=== PATIENT | male | born 1935 | race Caucasian/White ===

== ENCOUNTER 2016-10-04 10:25 | Emergency (ER) | payer MEDICARE, OTHER ==
[2013-06-16 09:39] VITALS: BMI 33.1
[~2016-10-04 10:25] MED LIST: ASPIRIN325 MG PO; EFFEXOR50 MG PO; FLOMAX0.4 MG PO; KLOR-CON M2020 MEQ PO; MULTI-DAY VITAM1 TAB PO; NORCO 10/325 TA1 TA1 PO; PRILOSEC20 MG PO; VOLTAREN75 MG PO; ZYLOPRIM300 MG PO
[2016-10-04 12:13] LABS: BASOPHILS 0.5 % (0.0-2.0); EOSINOPHILS 3.7 % (0-7); HEMATOCRIT 40.2 % (42.0-54.0); IMMATURE GRANULOCYTES 0.2 % (0-5); LYMPHOCYTES 23.7 % (15-50); MCH 28.3 pg (26.0-34.0); MCHC 32.3 g/dL (31.0-37.0); MCV 87.6 fL (80.0-100.0); MEAN PLATELET VOLUME 10.9 fL (7.4-10.4); MONOCYTES 9.7 % (2-11); NEUTROPHILS 62.2 % (40-80); PLATELET COUNT 170 10x3/uL (130-400); RBC 4.59 10x6/uL (4.20-6.10); RDW 14.1 % (11.5-14.5); WBC 6.2 10x3/uL (4.8-10.8)
[2016-10-04 12:31] LABS: ALBUMIN 3.8 g/dL (3.4-5.0); ANION GAP 10.9 mmol/L (8-16); BILIRUBIN - TOTAL 0.55 mg/dL (0.2-1.3); CALCIUM 9.2 mg/dL (8.5-10.1); CARBON DIOXIDE 29.4 mmol/L (21.0-32.0); CREATININE - SERUM 1.3 mg/dL (0.6-1.3); POTASSIUM - SERUM 4.3 mmol/L (3.5-5.1); PROTEIN - SERUM 7.4 g/dL (6.4-8.2)
[2016-10-04 12:44] LABS: THYROID STIMULATING HORMONE 2.19 uIU/mL (0.36-3.74); TROPONIN-I 0.016 ng/mL (0.000-0.060)
[2016-10-23 07:51] VITALS: BMI 36.6
== END 2016-10-04 15:19 | disposition home or self-care (01) ==
LOC: D.ER 10:25
PROVIDERS: Physician Assistant
DX: I48.91 Unspecified atrial fibrillation (principal); I10 Essential (primary) hypertension; J44.9 Chronic obstructive pulmonary disease, unspecified; K27.9 Peptic ulcer, site unspecified, unspecified as acute or chronic, without hemorrhage or perforation

== ENCOUNTER 2016-10-16 07:11 | Outpatient (CLI) | payer MEDICARE, OTHER ==
[~2016-10-16] VITALS: Ht 168.9 cm; Wt 104.5 kg
--- NOTE | ~2016-10-16 | HEMODYNAMI ---
PATIENT:MADDISON ABDI SR MEDICAL RECORD: [id number] : 39 [address] [id number] ADMISSION DATE: 10/16/16 Generatedon:10/17/20168:47 Patient name: MADDISON ABDI Patient #: [id number] SSN: : [id number] Date of study: 10/17/2016 Page: Of Hemodynamic Procedure Report Patient Data Patient Demographics Procedure consent was obtained First Name: MADDISON Gender: Male Last Name: JIN Suffix: [facility] Initial: F : 1935 Patient #: [id number] Age: 80 year(s) Race: Unknown Additional ID: [id number] Contact details [address]: [address] [place] [address] State: [place] City: [place] Zip code: [address] Past Medical History Allergies: No known allergies Admission Admission Data Admission Date: 10/16/2016 Admission Time: 7:11 Room #: [facility] Lab Results Lab Result Date: 10/16/2016 Lab Result Time: 0:00 Biochemistry Name Units Result Min Max BUN mg/dl 19 --(----)*- 7 18 Creatinine mg/dl 1.1 --(--*-)-- 0.6 1.3 CBC Name Units Result Min Max Hemoglobin g/dl 13.1 -*(----)-- 13.5 17.5 Procedure Procedure Types Cath Procedure PCI Procedure Coronary Stent Initial Miscellaneous Procedures Moderate Sedation up to 30 minutes Procedure Description Procedure Date Procedure Date: 10/17/2016 Procedure Start Time: 8:28 Procedure End Time: 8:44 Procedure Staff Name Function Anand Nino MD Performing Physician Brianna Jacobs RT Scrub Laurita Palmer RT Monitor Hipolito Mota RN Nurse Procedure Data Cath Procedure Fluoroscopy Diagnostic fluoroscopy Total fluoroscopy Time: 0 time: 0 min min Diagnostic fluoroscopy Total fluoroscopy dose: 602 dose: 602 mGy mGy Contrast Material Contrast Material Type Amount (ml) Isovue 370 65 Entry Location Entry Primary Successful Side Size Upsize Upsize Entry Closure Succes sful Closure Location (Fr) 1 (Fr) 2 (Fr) Remarks Device Remarks Femoral Left 6 Fr artery Short Estimated blood loss: 5 ml Procedure Complications No complications Procedure Medications Medication Administration Route Dosage Oxygen NC 2 l/min Lidocaine 2% added to field 20 Heparin Flush Bag added to field 2 bags (1000units/500ml NS) 0.9% NaCl I.V. 100 ml/hr Plavix P.O. 75 mg Versed I.V. 1 mg Fentanyl I.V. 50 mcg Versed I.V. 1 mg Fentanyl I.V. 50 mcg Heparin Bolus I.V. 4000 units Hemodynamics Rest HGB: 13.1 (g/dl) Heart Rate: 69 (bpm) Snapshots Pre Cath Intra NCS Post Cath Vital Signs Time Heart Resp SPO2 NIBP (mmHg) Rhythm Pain Sedation Rate (ipm) (%) Status Level (bpm) 8:17:37 69 19 96 154/84(128) NSR 0 (11) 10(A) , No pain 8:22:09 66 15 94 145/79(118) NSR 0 (11) 10(A) , No pain 8:26:38 66 22 93 153/87(121) NSR 0 (11) 9(A) , No pain 8:31:10 70 16 93 155/73(115) NSR 0 (11) 9(A) , No pain 8:35:42 81 15 94 155/85(133) NSR 0 (11) 9(A) , No pain 8:41:12 73 18 94 149/88(112) NSR 0 (11) 10(A) , No pain 8:45:43 72 29 93 146/84(122) NSR 0 (11) 10(A) , No pain Medications Time Medication Route Dose Verified Delivered Reason Notes Effectiveness by by 8:10:31 Oxygen NC 2 Anand Mcmillan used for l/min Trung Mota theatrical rigger 8:10:40 Lidocaine 2% added 20ml Anand Michel for local to vial Trung Nino MD anesthetic field 8:10:46 Heparin Flush added 2 Anand Michel used for Bag to bags Trung Nino MD procedure (1000units/500ml field NS) 8:10:57 0.9% NaCl I.V. 100 Anand Buffie Per physician ml/hr Trung Mota RN 8:13:51 Plavix P.O. 75 mg Anand Mcmillan for Trung Mota RN antiplatelet therapy 8:21:35 Versed I.V. 1 mg Anand Mcmillan for sedation Trung Mota RN 8:21:42 Fentanyl I.V. 50 Anand Mcmillan for sedation mcg Trung Mota RN 8:27:45 Versed I.V. 1 mg Anand Mcmillan for sedation Trung Mota RN 8:27:48 Fentanyl I.V. 50 Anand Mcmillan for sedation mcg Trung Mota RN 8:30:47 Heparin Bolus I.V. 4000 Anand Mcmillan for verifie d units Trung Mota RN anticoagulation with dr nino Procedure Log Time Note 7:55:25 Diagnostic Cath Status : Elective 7:55:50 Art Brennan RN sent for patient. Start room use. 7:55:52 Time tracking: Regular hours 7:55:57 Plan of Care:Hemodynamics will remain stable., Cardiac rhythm will remain stable., Comfort level will be maintained., Respiratory function will remain adequate., Patient/ family verbilizes understanding of procedure., Procedure tolerated without complication., Recovers from procedure without complications.. 8:10:31 Oxygen 2 l/min NC was administered by Hipolito Mota RN; used for procedure; 8:10:40 Lidocaine 2% 20ml vial added to field was administered by Anand Nino MD; for local anesthetic; 8:10:46 Heparin Flush Bag (1000units/500ml NS) 2 bags added to field was administered by Anand Nino MD; used for procedure; 8:10:57 0.9% NaCl 100 ml/hr I.V. was administered by Hipolito Mota RN; Per physician; 8:13:51 Plavix 75 mg P.O. was administered by Hipolito Mota RN; for antiplatelet therapy; 8:15:57 Vital chart was started 8:18:05 Patient received from Med II to CCL 2 Alert and oriented. Tansferred to table in Supine position. 8:18:06 Warm blankets applied, and patti hugger turned on for patient comfort. 8:18:06 Correct patient and procedure confirmed by team. 8:18:08 Signed procedure consent form obtained from patient. 8:18:09 ECG and BP/O2 sat monitors applied to patient. 8:18:24 Baseline sample Acquired. 8:18:30 Rhythm: sinus rhythm 8:18:31 Full Disclosure recording started 8:18:37 H&P Date Dictated: 10/17/2016 Within 30 days and on chart.. 8:18:39 Pre-procedure instructions explained to patient. 8:18:40 Pre-op teaching completed and patient verbalized understanding. 8:18:41 Family in waiting room. 8:18:42 Patient NPO since Midnight. 8:18:51 Is the patient allergic to Iodine/contrast media? No. 8:18:52 Was the patient premedicated? No 8:18:53 Is patient on blood thinner?Yes 8:18:56 ACC The patient was administered the following blood thiners within the last 24 hours: ACCPlavix 8:19:29 Patient diabetic? No. 8:19:31 Previous problem with sedation/anesthesia? No ? 8:19:34 Snore? Yes 8:19:35 Sleep apnea? Yes 8:19:36 Deviated septum? No 8:19:36 Opens mouth fully? Yes 8:19:37 Sticks out tongue? Yes 8:19:45 Airway obstruction? Yes copd 8:20:01 Dentures? Yes out 8:20:04 Pre procedure: right dorsailis pedis pulse 1+ Palpable, but thready & weak; easily obliterated 8:20:07 Patient pain scale 0/10 ?. 8:20:13 IV patent on arrival in left forearm with 0.9% NaCl at KVO. 8:20:20 Lab results completed and on chart. 8:20:24 Left groin area was prepped with chlora-prep and draped in sterile fashion 8:20:25 Alarms reviewed by R. N. 8:20:25 Sharps counted by scrub and verified by R.N. 8:20:27 Physician arrived 8:20:27 --------ALL STOP TIME OUT------ 8:20:27 Final Timeout: patient, procedure, and site verified with staff and physician. All members of the team are in agreement. 8:20:29 Left groin site verified by team. 8:20:32 Physical assessment completed. ASA score P 2 - A patient with mild systemic disease as per Anand Nino MD. 8:20:35 Sedation plan: IV Moderate Sedation Versed, Fentanyl 8:20:40 Use device set Femoral PCI 8:20:41 Acist Syringe opened to sterile field. 8:20:42 Acist Hand Control opened to sterile field. 8:20:43 Bag Decanter opened to sterile field. 8:20:43 Medline Cath Pack opened to sterile field. 8:20:44 Terumo 6Fr [place] Sheath opened to sterile field. 8:20:44 St Hussein 260cm J .035 wire opened to sterile field. 8:20:45 Merit BasixCompak Inflation Kit opened to sterile field. 8:20:45 Acist Manifold opened to sterile field. 8:20:46 Tegaderm 4 x 4 opened to sterile field. 8:21:35 Versed 1 mg I.V. was administered by Hipolito Mota RN; for sedation; 8:21:42 Fentanyl 50 mcg I.V. was administered by Hipolito Mota RN; for sedation; 8:25:15 Zero performed for pressure channel P1 8:25:25 Zero performed for pressure channel P1 8:25:31 Zero performed for pressure channel P1 8:26:21 Cordis 6FR XBLAD 3.5 guide catheter opened to sterile field. 8:27:45 Versed 1 mg I.V. was administered by Hipolito Mota RN; for sedation; 8:27:48 Fentanyl 50 mcg I.V. was administered by Hipolito Mota RN; for sedation; 8:28:02 Procedure started. 8:28:08 Local anesthetic to left femerol artery with Lidocaine 2% by Anand Nino MD.INITIAL ACCESS ONLY 8:28:16 A 6 Fr Short sheath was inserted into the Left Femoral artery 8:30:47 Heparin Bolus 4000 units I.V. was administered by Hipolito Mota RN; for anticoagulation; verified with dr nino 8:30:49 6 Fr xblad 3.5 guide catheter was inserted over the wire 8:30:52 LCA angiography performed. 8:30:58 whisper wire advanced. 8:30:59 Wire advanced across lesion. 8:31:53 Eason Whisper J 300cm 0.014 guide wire opened to sterile field. 8:33:27 Inflation Number: 1 A Medtronic Resolute 3.0 X 38 stent was prepped and advanced across the Mid LAD. The stent was deployed at 15 IVANIA for 0:10 (min:sec). 8:34:20 Inflation number: 2 The stent balloon was then re-inflated across the Mid LAD to 3 IVANIA for 0:20 (min:sec). 8:34:48 Stent catheter was removed intact over wire. 8:34:48 Wire removed. 8:34:49 Guide catheter removed. 8:35:02 Vascade 6/7 Fr Closure Device opened to sterile field. 8:36:58 Vascade deployment was unsuccessful 8:37:04 Sheath removed intact; hemostasis achieved with to the Left Femoral artery. 8:37:09 Femstop placed over the left femerol artery at 212 mmHg. Hemostasis achieved. 8:44:12 Post Procedure Pulses reassessed and unchanged 8:44:15 Post procedure rhythm: unchanged. 8:44:17 Estimated blood loss: 5 ml 8:44:18 Post procedure instruction explained to patient.Patient verbalizes understanding. 8:44:19 Patient needs reinforcement of post procedure teaching. 8:44:34 Procedure type changed to Cath procedure, PCI procedure, Coronary Stent Initial, Miscellaneous Procedures, Moderate Sedation up to 30 minutes 8:44:35 Procedure and supply charges have been captured, reviewed, submitted and are correct. 8:44:39 Procedure Complication : No complications 8:44:41 Vital chart was stopped 8:44:41 See physician's report for complete and final results. 8:44:44 Report given to [facility]. 8:44:47 Patient transfered to [facility] with Stretcher. 8:44:53 Procedure ended. 8:44:53 Full Disclosure recording stopped 8:45:01 ACC-PCI Only Patient was given prescriptions, or instructed by Anand Nino MD to start/continue the following medications upon discharge: Plavix 8:45:29 Procedure ended.(Physican Out) 8:45:49 Fluoroscopy time 00.00 minutes. 8:45:53 Fluoroscopy dose: 602 mGy 8:45:53 Flurop Dose total: 602 8:46:00 Contrast amount:Isovue 370 65ml. 8:46:02 Sharps counted by scrub and verified by R.N. 8:46:04 Insertion/operative site no bleeding no hematoma. 8:46:11 Post-op/insertion site Left Femoral artery dressed using a 4 x 4 and Tegaderm. 8:46:16 End room use (Document Last) Intervention Summary Intervention Notes Time ActionType Lesion and Equipment Action# Pressure Duration Attributes Used 8:33:27 Place stent Mid LAD Medtronic 1 15 00:10 Resolute 3.0 X 38 stent 8:34:20 Reinflate Mid LAD Medtronic 2 3 00:20 stent Resolute balloon 3.0 X 38 stent Device Usage Item Name Manufacture Quantity Catalog Hospital Part Current Minima l Lot# / Number Charge Number Stock Stock Serial# Code Acist Acist 1 48766 412003 355125 [id number] 20 Syringe Medical Systems Inc Acist Hand Acist 1 29669 128146 122232 142842 5 Control Medical Systems Inc Bag Microtek 1 2002S 672252 91399 078479 5 DecThe Optima [employer] Inc. Medline Cardinal 1 [id number] 497954 81905 296639 5 Cath Pack Health Terumo 6Fr Terumo 1 [id number] 218738 165737 958297 [address] [place] [address] Hussein 1 230342 611581 705284 564909 30 260cm J .035 wire Merit Merit 1 [id number] 140079 005970 716423 15 BasixClassic Drivek Medical Inflation Kit Acist Acist 1 02741 768454 814052 610883 5 Manifold Medical Systems Inc Tegaderm 4 3M 1 1626W 534926 465679 702199 5 x 4 Cordis 6FR Cardinal 1 [id number] 928268 022167 255063 10 XBLAD 3.5 Health guide catheter Eason Eason 1 [id number] 990649 907184 670782 5 Whisper J Vascular 300cm 0.014 guide wire Medtronic Medtronic 1 [id number] 563605 091612 0 [id number] Resolute 3.0 X 38 stent Vascade 6/7 Cardiva 1 [id number] 854916 671261 528753 5 Fr Closure Medical, Device Inc. Signature Audit [place] Stage Time Signature Unsigned Intra-Procedure 10/17/2016 Laurita Palmer 8:47:39 AM RT(R) Signatures Monitor : Laurita Palmer RT Signature : Date : Time : [facility] [address] [place] [address]
--- NOTE | ~2016-10-16 | HEMODYNAMI ---
PATIENT:MADDISON ABDI SR MEDICAL RECORD: [id number] : 39 LOCATION:D.CAT ADMISSION DATE: 10/16/16 Generatedon:10/16/201610:20 Patient name: MADDISON ABDI Patient #: [id number] SSN: : 1935 Date of study: 10/16/2016 Page: Of Hemodynamic Procedure Report Patient Data Patient Demographics Procedure consent was obtained First Name: MADDISON Gender: Male Last Name: JIN Suffix: [facility] Initial: F : 1935 Patient #: [id number] Age: 80 year(s) Race: Unknown Additional ID: [id number] Contact details [address]: [address] [place] [address] State: [place] City: [place] Zip code: [address] Past Medical History Allergies: No known allergies Admission Admission Data Admission Date: 10/16/2016 Admission Time: 7:11 Lab Results Lab Result Date: 10/16/2016 Lab Result Time: 0:00 Biochemistry Name Units Result Min Max BUN mg/dl 19 --(----)*- 7 18 Creatinine mg/dl 1.1 --(--*-)-- 0.6 1.3 CBC Name Units Result Min Max Hemoglobin g/dl 13.1 -*(----)-- 13.5 17.5 Procedure Procedure Types Cath Procedure Diagnostic Procedure [facility] w/Coronaries PCI Procedure Coronary Stent Initial Miscellaneous Procedures Moderate Sedation up to 15 minutes Procedure Description Procedure Date Procedure Date: 10/16/2016 Procedure Start Time: 9:49 Procedure End Time: 10:16 Procedure Staff Name Function Anand Nino MD Performing Physician Olivier Barcenas RT Scrub Johana Medrano RN Nurse Josué Servin RT Monitor Procedure Data Cath Procedure Fluoroscopy Diagnostic fluoroscopy Total fluoroscopy Time: 8.3 time: 8.3 min min Diagnostic fluoroscopy Total fluoroscopy dose: 934 dose: 934 mGy mGy Contrast Material Contrast Material Type Amount (ml) Isovue 300 94 Entry Location Entry Primary Successful Side Size Upsize Upsize Entry Closure Succes sful Closure Location (Fr) 1 (Fr) 2 (Fr) Remarks Device Remarks Femoral Right 5 Fr 7 Fr Exoseal artery Short Diagnostic catheters Device Type Used For End Catheter Placement Cordis 5Fr Pigtail LV Angiography Catheter (MP) Cordis 5Fr JL 4.0 Left Coronary Catheter (MP) Angiography Cordis 5Fr 3DRC Catheter Right Coronary (MP) Angiography Procedure Complications No complications Procedure Medications Medication Administration Route Dosage Oxygen NC 3 l/min Lidocaine 2% added to field 20 Heparin Flush Bag added to field 2 bags (1000units/500ml NS) Versed I.V. 1 mg Fentanyl I.V. 50 mcg Versed I.V. 1 mg Fentanyl I.V. 50 mcg Heparin Bolus I.V. 4000 units Integrilin (Bolus I.V. 9.5 ml 2mg/ml) Plavix P.O. 600 mg Hemodynamics Rest HGB: 13.1 (g/dl) Heart Rate: 66 (bpm) Snapshots Pre Cath Intra NCS Post Cath Vital Signs Time Heart Resp SPO2 etCO2 EF3ryyk NIBP (mmHg) Rhythm Pain Sedatio n Rate (ipm) (%) (mmHg) (mmHg) Status Level (bpm) 9:33:20 64 16 98 0 0 174/97(151) NSR 0 (11) 10(A) , No pain 9:37:46 63 26 96 0 0 176/95(141) NSR 0 (11) 10(A) , No pain 9:42:10 63 16 96 0 0 168/94(145) NSR 0 (11) 10(A) , No pain 9:46:33 62 20 96 0 0 176/103(150) NSR 0 (11) 10(A) , No pain 9:51:01 66 20 96 0 0 179/100(147) NSR 0 (11) 10(A) , No pain 9:55:17 64 18 95 0 0 159/92(132) NSR 0 (11) 9(A) , No pain 9:59:39 64 16 95 0 0 169/97(122) NSR 0 (11) 9(A) , No pain 10:04:01 72 16 95 0 0 174/98(150) NSR 0 (11) 9(A) , No pain 10:08:23 73 16 95 0 0 167/94(128) NSR 0 (11) 9(A) , No pain 10:12:50 72 17 95 0 0 164/92(139) NSR 0 (11) 9(A) , No pain 10:15:52 79 15 95 0 0 160/98(119) NSR 0 (11) 10(A) , No pain Medications Time Medication Route Dose Verified Delivered Reason Notes Effectiveness by by 9:30:54 Oxygen NC 3 Anand Johana Per physician l/min Trung Medrano RN 9:31:42 Lidocaine 2% added 20ml Anand Michel used for to vial Trung Nino MD procedure field 9:32:02 Heparin Flush added 2 Anand Anand used for Bag to bags Trung Nino MD procedure (1000units/500ml field NS) 9:48:22 Versed I.V. 1 mg Anand Johana for sedation Trung Medrano RN 9:48:28 Fentanyl I.V. 50 Anand Johana for sedation mcg Trung Medrano RN 9:51:01 Versed I.V. 1 mg Anand Johana for sedation Trung Medrano RN 9:51:05 Fentanyl I.V. 50 Anand Johana for sedation mcg Trung Medrano RN 10:03:42 Heparin Bolus I.V. 4000 Anand Johana for units Trung Medrano RN anticoagulation 10:07:39 Integrilin I.V. 9.5 Anand Johana for (Bolus 2mg/ml) ml Trung Medrano RN antiplatelet therapy 10:19:08 Plavix P.O. 600 Anand Johana for mg Trung Medrano RN antiplatelet therapy Procedure Log Time Note 9:16:36 ACC Patient presents with Stable Angina CCS Anginal Class 2--Slight limitation of ordinary activity. 9:16:38 Diagnostic Cath status Elective 9:16:41 Josué Servin RT(R) sent for patient. Start room use. 9:16:42 Time tracking: Regular hours 9:16:47 Plan of Care:Hemodynamics will remain stable., Cardiac rhythm will remain stable., Comfort level will be maintained., Respiratory function will remain adequate., Patient/ family verbilizes understanding of procedure., Procedure tolerated without complication., Recovers from procedure without complications.. 9:23:48 Patient received from Pre/Post Procedure Room to CCL 1 Alert and oriented. Tansferred to table in Supine position. 9:23:50 Warm blankets applied, and patti hugger turned on for patient comfort. 9:23:51 Correct patient and procedure confirmed by team. 9:23:53 ECG and BP/O2 sat monitors applied to patient. 9:23:53 Signed procedure consent form obtained from patient. 9:30:54 Oxygen 3 l/min NC was administered by Johana Medrano RN; Per physician; 9:31:42 Lidocaine 2% 20ml vial added to field was administered by Anand Nino MD; used for procedure; 9:32:02 Heparin Flush Bag (1000units/500ml NS) 2 bags added to field was administered by Anand Nino MD; used for procedure; 9:32:02 Vital chart was started 9:32:06 Baseline sample Acquired. 9:32:10 Rhythm: sinus rhythm 9:32:12 Full Disclosure recording started 9:38:03 H&P Date Dictated: 10/09/2016 Within 30 days and on chart., H&P Addendum completed by physician on day of procedure. (MUST COMPLETE FOR ALL OUTPATIENTS). 9:38:05 Pre-procedure instructions explained to patient. 9:38:10 Pre-op teaching completed and patient verbalized understanding. 9:38:12 Family in waiting room. 9:38:15 Patient NPO since Midnight. 9:38:24 Patient allergic to No known allergies 9:38:29 Is the patient allergic to Iodine/contrast media? No. 9:38:55 Is patient on blood thinner?Yes 9:42:27 Patient diabetic? No. 9:42:34 ----Pre-sedation anethsthesia assessment.---- 9:42:36 Previous problem with sedation/anesthesia? No ? 9:42:38 Snore? Yes 9:42:39 Sleep apnea? Yes 9:42:41 Deviated septum? No 9:42:42 Opens mouth fully? Yes 9:42:44 Sticks out tongue? Yes 9:42:50 Airway obstruction? Yes unknown 9:43:00 Dentures? Unknown ? 9:43:03 Pre procedure: right dorsailis pedis pulse 1+ Palpable, but thready & weak; easily obliterated 9:43:07 Modified Wero's test Ulnar > 7 seconds. 9:43:10 Patient pain scale 0/10 ?. 9:43:27 IV patent on arrival in left antecubital with 0.9% NaCl at 10ml/hr. 9:46:35 Lab Result : BUN 19 mg/dl 9:46:35 Lab Result : Creatinine 1.1 mg/dl 9:46:35 Lab Result : Hemoglobin 13.1 g/dl 9:47:03 Lab results completed and on chart. 9:47:07 Right groin area was prepped with chlora-prep and draped in sterile fashion 9:47:07 Alarms reviewed by R. N. 9:47:08 Sharps counted by scrub and verified by R.N. 9:47:09 --------ALL STOP TIME OUT------ 9:47:09 Final Timeout: patient, procedure, and site verified with staff and physician. All members of the team are in agreement. 9:47:11 Right groin site verified by team. 9:47:16 Physical assessment completed. ASA score P 2 - A patient with mild systemic disease as per Anand Nino MD. 9:47:20 Sedation plan: IV Moderate Sedation Versed, Fentanyl 9:47:52 Use device set Femoral Dx 9:47:54 Acist Syringe opened to sterile field. 9:47:55 Bag Decanter opened to sterile field. 9:47:55 Medline Cath Pack opened to sterile field. 9:47:56 Terumo 5Fr Carbon Sheath opened to sterile field. 9:47:56 St Hussein 260cm J .035 wire opened to sterile field. 9:47:58 Acist Hand Control opened to sterile field. 9:47:58 Acist Manifold opened to sterile field. 9:47:59 Diagnostic Infinity 5Fr Multipack catheter opened to sterile field. 9:47:59 Tegaderm 4 x 4 opened to sterile field. 9:48:22 Versed 1 mg I.V. was administered by Johana Medrano RN; for sedation; 9:48:28 Fentanyl 50 mcg I.V. was administered by Johana Medrano RN; for sedation; 9:49:02 ACC The patient was administered the following blood thiners within the last 24 hours: Xarelto 9:49:25 BLOOD THINNER 17 9:49:38 Procedure started. 9:49:52 Local anesthetic to right femoral artery with Lidocaine 2% by Anand Nino MD.INITIAL ACCESS ONLY 9:50:01 A 5 Fr sheath was inserted into the Right Femoral artery 9:51:01 Versed 1 mg I.V. was administered by Johana Medrano RN; for sedation; 9:51:05 Fentanyl 50 mcg I.V. was administered by Johana Medrano RN; for sedation; 9:52:18 Zero performed for pressure channel P1 9:56:15 A Cordis 5Fr Pigtail Catheter (MP) was advanced over the wire and used for LV Angiography. 9:59:08 Catheter removed. 9:59:26 UNABLE TO CROSS LV 9:59:44 A Cordis 5Fr JL 4.0 Catheter (MP) was advanced over the wire and used for Left Coronary Angiography. 10:00:08 LCA angiography performed. 10:01:14 Catheter removed. 10:01:24 A Cordis 5Fr 3DRC Catheter (MP) was advanced over the wire and used for Right Coronary Angiography. 10:01:30 RCA angiography performed. 10:01:31 Catheter removed. 10:01:36 medidametrics BasixCompak Inflation Kit opened to sterile field. 10:01:37 Eason Whisper J 300cm 0.014 guide wire opened to sterile field. 10:03:30 Sheath upsized to a 7 Fr Short. 10:03:42 Heparin Bolus 4000 units I.V. was administered by Johana Medrano RN; for anticoagulation; 10:04:00 Terumo 7Fr Carbon Sheath opened to sterile field. 10:04:16 7 Fr HS 11 SH guide catheter was inserted over the wire 10:04:31 WHISPER wire advanced. 10:05:34 Inflation number: 1 A [place] Sci [place] 2.5 X 20 balloon was prepped and advanced across the Mid RCA, then inflated to 13 IVANIA for 0:07 (min:sec). 10:05:45 Inflation number: 2 The [place] Sci [place] 2.5 X 20 balloon was reinflated across the Mid RCA, to 13 IVANIA for 0:10 (min:sec). 10:06:00 Inflation number: 3 The [place] Sci [place] 2.5 X 20 balloon was reinflated across the Mid RCA, to 13 IVANIA for 0:12 (min:sec). 10:06:13 Balloon removed over the wire. 10:06:20 ACC PCI Site: mRCA has 99% stenosis. 10:07:39 Integrilin (Bolus 2mg/ml) 9.5 ml I.V. was administered by Johana Medrano RN; for antiplatelet therapy; 10:08:14 Inflation Number: 4 A Medtronic Resolute 3.0 X 38 stent was prepped and advanced across the Mid RCA. The stent was deployed at 15 IVANIA for 0:15 (min:sec). 10:08:21 Stent catheter was removed intact over wire. 10:10:01 Inflation Number: 5 A Medtronic Resolute 3.5 X 9 stent was prepped and advanced across the Mid RCA. The stent was deployed at 15 IVANIA for 0:07 (min:sec). 10:10:18 Stent catheter was removed intact over wire. 10:10:19 Wire removed. 10:10:19 Guide catheter removed. 10:10:26 Contrast amount:Isovue 300 94ml. 10:10:33 Sheath removed intact; hemostasis achieved with Exoseal to the Right Femoral artery. 10:11:47 Cordis 7Fr Exoseal opened to sterile field. 10:11:51 Procedure ended.(Physican Out) 10:12:24 Procedure type changed to Cath procedure, Diagnostic procedure, LHC, LHC w/Coronaries, PCI procedure, Coronary Stent Initial, Miscellaneous Procedures, Moderate Sedation up to 15 minutes 10:12:32 Fluoroscopy time 08.30 minutes. 10:12:38 Fluoroscopy dose: 934 mGy 10:12:38 Flurop Dose total: 934 10:12:39 Sharps counted by scrub and verified by R.N. 10:12:40 Insertion/operative site no bleeding no hematoma. 10:12:43 Post-op/insertion site Right Femoral artery dressed using a 4 x 4 and Tegaderm. 10:12:46 Post right femoral artery:stable 10:12:48 Post Procedure Pulses reassessed and unchanged 10:12:51 Post procedure: right dorsailis pedis pulse 1+ Palpable, but thready & weak; easily obliterated. 10:12:54 Post procedure rhythm: sinus rhythm 10:12:57 Post procedure instruction explained to patient.Patient verbalizes understanding. 10:13:11 Procedure and supply charges have been captured, reviewed, submitted and are correct. 10:13:16 Procedure Complication : No complications 10:16:20 Vital chart was stopped 10:16:21 See physician's report for complete and final results. 10:16:22 Report given to Pre/Post Procedure Room. 10:16:26 Patient transfered to Pre/Post Procedure Room with Stretcher. 10:16:29 Procedure ended. 10:16:29 Full Disclosure recording stopped 10:16:31 End room use (Document Last) 10:19:08 Plavix 600 mg P.O. was administered by Johana Medrano RN; for antiplatelet therapy; Intervention Summary Intervention Notes Time ActionType Lesion and Equipment Action# Pressure Duration Attributes Used 10:05:34 Inflate Mid RCA [place] 1 13 00:08 balloon Sci [place] 2.5 X 20 balloon 10:05:45 Reinflate Mid RCA [place] 2 13 00:10 balloon Sci [place] 2.5 X 20 balloon 10:06:00 Reinflate Mid RCA [place] 3 13 00:12 balloon Sci [place] 2.5 X 20 balloon 10:08:14 Place stent Mid RCA Medtronic 4 15 00:15 Resolute 3.0 X 38 stent 10:10:01 Place stent Mid RCA Medtronic 5 15 00:07 Resolute 3.5 X 9 stent Device Usage Item Name Manufacture Quantity Catalog Number Hospital Part Current Mini mal Lot# / Charge Number Stock Stock Serial# Code Acist Acist 1 [id number] 554844 295885 20 Syringe Medical Systems Inc Bag Microtek 1 2002S 146639 92727 745145 5 Funnely Inc. Medline Cardinal 1 [id number] 358137 06627 471159 5 Cath Pack Digital Shadows Terumo 5Fr Terumo 1 [id number] 749880 944785 573379 [address] [facility] Hussein 1 269519 295372 216199 843316 30 260cm J .035 wire Acist Hand Acist 1 97609 249534 109063 996683 5 Control Medical Systems Inc Acist Acist 1 49407 589646 384970 577050 5 SodaStream [employer] Inc Diagnostic Cardinal 1 [id number] 814897 45152 537872 30 TradingScreen 5Fr Multipack catheter Tegaderm 4 3M 1 1626W 891723 625033 362844 5 x 4 Cordis 5Fr Cardinal 1 [id number] 5 Pigtail Health Catheter (MP) Cordis 5Fr Cardinal 1 815517 5 JL 4.0 Health Catheter (MP) Cordis 5Fr Cardinal 1 850467 5 3DRC Health Catheter (MP) [facility] 1 [id number] 767148 517533 578716 15 BasixCompak Medical Inflation Kit Eason Eason 1 [id number] 697783 801273 483168 5 Whisper J Vascular 300cm 0.014 guide wire Terumo 7Fr Terumo 1 [id number] 595443 039276 039096 5 Carbon Sheath [place] Sci [place] 1 [id number] 564821 239173 074591 1 [id number] [employer] 2.5 X 20 balloon Medtronic Medtronic 1 [id number] 964450 191927 0 [id number] Resolute 3.0 X 38 stent Medtronic Medtronic 1 [id number] 413436 367428 6 [id number] Resolute 3.5 X 9 stent Cordis 7Fr Cardinal 1 [id number] 975972 748818 424413 5 [facility] Digital Shadows Signature Audit Lamar Stage Time Signature Unsigned Intra-Procedure 10/16/2016 Josué Servin 10:19:57 AM RT(R) Signatures Monitor : Josué Servin RT Signature : Date : Time : [place] [id number] [facility] [place] [address]
[2016-10-16] MEDS ORDERED: BAYER CHEWABLE81 MG PO (07:43)
[2016-10-16] MEDS ORDERED: TOPROL XL50 MG PO (07:44)
[2016-10-16] MEDS ORDERED: XARELTO20 MG PO (07:45)
[2016-10-16] MEDS ORDERED: POTASSIUM99 M1 PO (07:47)
[2016-10-16] MEDS ORDERED: REQUIP1 MG PO (07:48)
[2016-10-16] MEDS ORDERED: EFFEXOR50 MG PO (07:48)
[2016-10-16] MEDS ORDERED: SINGULAIR10 MG PO (07:50)
[2016-10-16] MEDS ORDERED: ANORO ELLIPTA1 EACH INH (07:50)
[2016-10-16] MEDS ORDERED: SPIRIVA18 MCG INH (07:51)
[2016-10-16] MEDS ORDERED: PROAIR HFA8.5 GM INH (07:52)
[2016-10-16 07:54] VITALS: BP 170/87; Ht 168.9 cm; Wt 104.5 kg
[2016-10-16 08:11] LABS: BASOPHILS 0.5 % (0.0-2.0); EOSINOPHILS 2.5 % (0-7); HEMATOCRIT 39.6 % (42.0-54.0); HEMOGLOBIN 13.1 g/dL (13.5-17.5); IMMATURE GRANULOCYTES 0.2 % (0-5); LYMPHOCYTES 16.4 % (15-50); MCH 28.3 pg (26.0-34.0); MCHC 33.1 g/dL (31.0-37.0); MCV 85.5 fL (80.0-100.0); MEAN PLATELET VOLUME 10.4 fL (7.4-10.4); MONOCYTES 8.4 % (2-11); PLATELET COUNT 171 10x3/uL (130-400); RBC 4.63 10x6/uL (4.20-6.10); RDW 14.3 % (11.5-14.5); WBC 8.1 10x3/uL (4.8-10.8)
[2016-10-16 08:23] LABS: ANION GAP 10.5 mmol/L (8-16); CALCIUM 8.7 mg/dL (8.5-10.1); CARBON DIOXIDE 28.4 mmol/L (21.0-32.0); CREATININE - SERUM 1.1 mg/dL (0.6-1.3); POTASSIUM - SERUM 3.9 mmol/L (3.5-5.1)
--- NOTE | 2016-10-16 10:45 | NUR ---
IN BED WITH EYES CLOSED. VSS. RIGHT GROIN CDI, SMALL HEMATOMA NOTED, SOFT TO TOUCH. FEMSTOP IN PLACE AT 168. INSTRUCTED PT TO KEEP HEAD FLAT ON PILLOW AND RIGHT LEG STRAIGHT.
--- NOTE | 2016-10-16 11:15 | NUR ---
RESTING IN BED, AT BEDSIDE. VSS. 4L NC, NO RESP DISTRESS NOTED. RIGHT GROIN CDI, NO BLEEDING NOTED. FEMSTOP IN PLACE AT 168. WILL CONTINUE TO MONITOR.
--- NOTE | 2016-10-16 11:30 | NUR ---
HEMATOMA ON RIGHT GROIN GETTING LARGER BUT STILL SOFT. FEMSTOP REMOVED AND PRESSURE BEING HELD AT SITE BY CATH RELIEF DOCKING MASTER.
--- NOTE | 2016-10-16 12:00 | NUR ---
RESTING WITH HEAD FLAT ON PILLOW, VSS. RIGHT GROIN CDI, NO BLEEDING NOTED. SIDE RAILS UP X2, CALL LIGHT WITHIN REACH.
--- NOTE | 2016-10-16 12:30 | NUR ---
ASSISTED PT ONTO AND OFF BEDPAN. HAD LARGE BM. CLEANED UP AND LINENS CHANGED. VSS. RIGHT GROIN CDI, FEMSTOP IN PLACE. WILL CONTINUE TO MONITOR.
--- NOTE | 2016-10-16 13:30 | NUR ---
RESTING IN BED WITH EYES CLOSED, VSS. AT BEDSIDE. NO C/O CHEST PAIN OR NAUSEA. RIGHT GROIN CDI. SIDE RAILS UP X2, CALL LIGHT WITHIN REACH.
--- NOTE | 2016-10-16 19:40 | NUR ---
1939- REPORT CALLED TO MARIBELL GOMEZ AT 1830- TRANSFERRING PT NOW VIA STRETCHER. VSS, NO CHANGES IN ASSESSMENT. IV PATENT
--- NOTE | 2016-10-16 20:00 | NUR ---
RECEIVED TO ROOM 2122 ALERT AND ORIENTED 80 Y/O MALE VIA STRETCHER FROM CUSTOMER ACCOUNTS ADVISOR. AMBULATE TO BED W/O DIFF. O2 @ 2L NC IN PLACE, RESP UNLAB. LEFT HAND SL INTACT WITH NO R/S NOTED AT SITE. UP AD ROSSI W/O DIFF. RT GROIN CATH SITE CDI, NO ACTIVE BLEEDING NOTED, PPPBILAT, SKIN WARM AND DRY. NPO STATUS EXPLAINED WITH UNDERSTANDING VERBALIZED ABOUT PROCEDURE IN AM. HOB UP SR UP X2, C/L IN REACH. CONTINUE TO MONITOR.
[2016-10-16 21:40] VITALS: BP 173/77
[2016-10-17 02:00] VITALS: BP 174/81
--- NOTE | 2016-10-17 03:29 | NUR ---
EYES CLOSED, RESP UNLAB WITH NO S/S OF ACUTE DISTRESS NOTED AT THIS TIME. TELEMETRY SHOWING HR SR PER MONITOR. TECH. NPO FOR AM PROCEDURE. C/L IN REACH.
[2016-10-17 07:52] VITALS: BP 146/72; BP 176/90
--- NOTE | 2016-10-17 08:01 | NUR ---
ASSESSMENT COMPLETED. ALERT. TELEMERTY SHOWS SR. DRSG TO RIGHT GROIN DRY AND INTACT. PRE OPED AND SENT TO BUSINESS SUPPORT LIAISON
--- NOTE | 2016-10-17 09:15 | NUR ---
BACK FROM PLASTER MOLDER.. V/S STABLE. LEFT GROIN WITH A FEM STOP IN PLACE, PPP, NO BLEEDING NOTED. WILL MONITOR
[2016-10-17] MEDS ORDERED: PLAVIX75 MG PO (10:00)
--- NOTE | 2016-10-17 10:28 | NUR ---
RESTING QUIETLY NAD NOTED
--- NOTE | 2016-10-17 11:12 | NUR ---
LYING QUIETLY. V/S STABLE TELEMERTY SHOING SR. FEM STOP LOOSE, BUT LEFT IN PLACE. NO BLEEDING , LEFT GROIN SOFT. PPP
[2016-10-17 11:42] VITALS: BP 145/73
[2016-10-17 15:51] VITALS: BP 158/78
--- NOTE | 2016-10-17 17:41 | NUR ---
IV DCD WITH TIP INTACT. NO BLEEDING FROM CATH SITE.. INSTRUCTIONS GIVEN TO PT AND . TO PRIVATE CAR PER WHEEL CHAIR
--- NOTE | 2016-10-24 14:37 | OP ---
PATIENT NAME: MADDISON ABDI SR MEDICAL RECORD: [id number] :39 LOCATION:D.CAT ADMISSION DATE: SURGEON: ELSI BRUCE MD DATE OF OPERATION: 10/17/2016 PROCEDURES: 1. PTCA stent LAD. 2. Selective coronary angiography. INDICATION: Angina and coronary artery disease. PROCEDURE PERFORMED: After informed consent was obtained and after detailed explanation of the risks, benefits as well as alternative therapies, the patient elected to proceed with angiogram and angioplasty. The left femoral area was prepped and draped in normal sterile fashion. The left femoral artery was cannulated via modified Seldinger technique with placement of 6-Turkmen sheath. All catheters exchanged through this sheath. FINDINGS: The left anterior descending has 80+ percent stenosis times 2 in the proximal and mid vessel. This were both cover with a 3.0 x 38 mm Resolute stent. Result was 0% residual stenosis. OVERALL IMPRESSION: Successful percutaneous transluminal coronary angioplasty stent of the left anterior descending going from 80+ percent initial stenosis to 0% residual. TRANSINT:[id number] Voice Confirmation ID: [id number] DOCUMENT ID: [id number] ELSI BRUCE MD at 1437 CC: [id number] DICTATION DATE: 10/17/16 0840 [employer] SOUND[employer] GROUP LEADER: 10/17/16 0952 DEP CLI 10/17/[address] [address]
--- NOTE | 2016-10-24 14:37 | EC ---
PATIENT:MADDISON ABDI SR DATE OF SERVICE: 10/16/16 SEX: M MEDICAL RECORD: [id number] DATE OF : 39 LOCATION:D.CAT AGE OF PATIENT: 80 ADMISSION DATE: 10/16/16 REFERRING PHYSICIAN: INTERPRETING PHYSICIAN: ELSI NINO MD ECHOCARDIOGRAM REPORT ECHO CHARGES 4 ECHO COMPLETE CLINICAL DIAGNOSIS: SOB/ POST CATH /STENTS ECHOCARDIOGRAPHIC MEASUREMENTS (adult normal given) AC root (d.<3.7cm) 3.5 LV Septum d (<1.2 cm> 1.6 Valve Excursion 1.8 LV Septum (systole) 1.8 Left Atria (s.<4.0cm> 4.4 LVPW d(<1.2cm) 1.8 RV (d.<2.3cm) 3.7 LVPW (sytole) 2.0 LV diastole(<5.6CM) 5.4 MV E-F(>70mm/sec) LV systole 4.2 LVOT Diameter 1.6 MV exc.(>10mm) Est.ejection fraction (50-75%) Pericardial Effusion N DOPPLER: LVIT A 47.0 E 98.0 LA RVSP 27 LVOT 93 AOP1/2T Asc. Ao 231 RVOT RA PA AV Gradient Peak 21.36 AV Mean 10.58 AV Area 1.1 MV Gradient Peak 5.36 MV Mean 1.26 MV Area COMMENTS: Systems Engineer: Ludin MCADAMS Cook Apprentice Pastry:1 Dr. Nino TAPE# PACS DATE OF SERVICE: 10/16/2016 Echocardiogram FINDINGS: 1. Left ventricular chamber size is within normal limits. Left ventricular systolic function is normal. Overall ejection fraction estimated at 55%. 2. Left atrium, right atrium, and right ventricle chamber sizes are mildly dilated. Left atrium measures 4.2 cm. 3. Valvular structures: Aortic valve demonstrates mild calcific aortic ECHOCARDIOGRAM REPORT [id number] MADDISON ABDI SR stenosis. Valve area calculates to 1.1 cm-squared and there is gradient of 21 mm across the valve. The remaining valvular structures have normal structure and motion. 4. Doppler interrogation elsewise reveals mild mitral regurgitation, mild tricuspid regurgitation, no other valvular insufficiency or stenosis. 5. No evidence of pericardial effusion or left ventricular thrombus. TRANSINT:[id number] Voice Confirmation ID: [id number] DOCUMENT ID: [id number] ELSI NINO MD at 1437 CC: [id number] DICTATION DATE: 10/16/16 1201 INDUSTRIAL BOILERMAKER: 10/16/16 1530 DEP CLI 10/17/16 [place] [address] [place] [id number]
--- NOTE | 2016-10-24 14:37 | OP ---
PATIENT NAME: MADDISON ABDI SR MEDICAL RECORD: [id number] :37 LOCATION:D.CAT ADMISSION DATE: SURGEON: ELSI BRUCE MD DATE OF OPERATION: 10/16/2016 PROCEDURES: 1. PTCA stent RCA. 2. Left heart catheterization. 3. Selective coronary angiography. INDICATION: Angina and coronary artery disease. PROCEDURE IN DETAIL: After informed consent was obtained and after detailed explanation of risks, benefits as well as alternative therapies, the patient elected to proceed with angiogram and angioplasty. The right femoral area was prepped and draped in normal sterile fashion. Right femoral artery was cannulated via modified Seldinger technique with placement of 6-Macedonian sheath. All catheters exchanged through this sheath. FINDINGS: Left ventriculogram was not performed secondary to inability to cross the aortic valve. SELECTIVE CORONARY ANGIOGRAPHY: 1. Left main showed no significant angiographic disease. 2. Left anterior descending has 80% stenosis proximally. 3. Left circumflex has 80% to 90% stenosis in the proximal mid vessel. 4. The right coronary has multiple areas of 90% stenosis. PTCA STENT OF THE RCA: The stent used covering the multiple areas with 90% stenosis were 3.0 x 38 and 3.5 x 12 both Resolute stents. Result was 0% residual stenosis. OVERALL IMPRESSION: Successful percutaneous transluminal coronary angioplasty stent of the right coronary artery going from 90% initial stenosis to 0% residual. PLAN: PTCA stent of the LAD and the left circumflex in the near future. TRANSINT:[id number] Voice Confirmation ID: [id number] DOCUMENT ID: [id number] ELSI BRUCE MD at 1437 CC: [id number] DICTATION DATE: 10/16/16 1051 UROLOGY TEACHER: 10/16/16 1258 DEP CLI 10/17/16 [facility] [address] [place] [id number]
== END 2016-10-17 17:47 | disposition home or self-care (01) ==
LOC: D.M2 07:11 → D.CATH 07:11 → D.M2 19:42 → D.CATH 10-17 17:47
PROVIDERS: Internal Medicine Interventional Cardiology
DX: I25.119 Atherosclerotic heart disease of native coronary artery with unspecified angina pectoris (principal); I35.0 Nonrheumatic aortic (valve) stenosis; I34.0 Nonrheumatic mitral (valve) insufficiency; I36.1 Nonrheumatic tricuspid (valve) insufficiency
CPT/HCPCS: 93454; C9600 ×2

== ENCOUNTER 2016-10-23 07:23 | Outpatient (CLI) | payer MEDICARE, OTHER ==
[~2016-10-23] VITALS: Ht 168.9 cm; Wt 104.5 kg
--- NOTE | ~2016-10-23 | HEMODYNAMI ---
PATIENT:MADDISON ABDI SR MEDICAL RECORD: [id number] : 39 LOCATION:[facility] ADMISSION DATE: 10/23/16 Generatedon:10/23/201610:11 Patient name: MADDISON ABDI Patient #: [id number] SSN: : 1935 Date of study: 10/23/2016 Page: Of Hemodynamic Procedure Report Patient Data Patient Demographics Procedure consent was obtained First Name: MADDISON Gender: Male Last Name: JIN Suffix: [facility] Initial: F : 1935 Patient #: [id number] Age: 80 year(s) Race: Unknown Additional ID: [id number] Contact details Address: [address] [place] [address] State: [place] City: [place] Zip code: [address] Past Medical History Allergies: No known allergies Admission Admission Data Admission Date: 10/23/2016 Admission Time: 7:23 Admit Source: Other Insurance Payor: Private health insurance, Medicare Height (in.): 66.5 BSA: 2.14 (m2) Height (cm.): 168.91 BMI: 36.64 (kg/m2) Weight (lbs.): 230.47 Weight (kg.): 104.54 Lab Results Lab Result Date: 10/23/2016 Lab Result Time: 8:00 Biochemistry Name Units Result Min Max BUN mg/dl 20 --(----)*- 7 18 Creatinine mg/dl 1.1 --(--*-)-- 0.6 1.3 CBC Name Units Result Min Max Hematocrit % 36.2 *-(----)-- 42 54 Hemoglobin g/dl 11.6 *-(----)-- 13.5 17.5 Procedure Procedure Types Cath Procedure PCI Procedure Coronary Stent Initial Miscellaneous Procedures Moderate Sedation up to 15 minutes Procedure Description Procedure Date Procedure Date: 10/23/2016 Procedure Start Time: 10:00 Procedure End Time: 10:10 Procedure Staff Name Function Anand Nino MD Performing Physician Tracey Mandujano RT Scrub Art Brennan RN Nurse Ángel Carney RT Monitor Procedure Data Cath Procedure Fluoroscopy Diagnostic fluoroscopy Total fluoroscopy Time: 1.7 time: 1.7 min min Diagnostic fluoroscopy Total fluoroscopy dose: 235 dose: 235 mGy mGy Contrast Material Contrast Material Type Amount (ml) Isovue 300 41 Entry Location Entry Primary Successful Side Size Upsize Upsize Entry Closure Succes sful Closure Location (Fr) 1 (Fr) 2 (Fr) Remarks Device Remarks Femoral Right 6 Fr Vascade artery Short Closure System Estimated blood loss: 10 ml Procedure Complications No complications Procedure Medications Medication Administration Route Dosage Oxygen NC 2 l/min Heparin Flush Bag added to field 2 bags (1000units/500ml NS) 0.9% NaCl I.V. 100 ml/hr Fentanyl I.V. 50 mcg Versed I.V. 1 mg Heparin Bolus I.V. 4000 units Lopressor I.V. 5 mg Fentanyl I.V. 25 mcg Versed I.V. 0.5 mg Hemodynamics Rest BSA: 2.14 (m2) HGB: 11.6 (g/dl) O2 Consumption: Estimated: 282.11 (ml/min) O2 Co nsumption indexed: Estimated:131.83 (ml/min/m) Heart Rate: 116 (bpm) Snapshots Pre Cath Intra NCS Post Cath Vital Signs Time Heart Resp SPO2 etCO2 [id number] NIBP (mmHg) Rhythm Pain Sedation Rate (ipm) (%) (mmHg) (mmHg) Status Level (bpm) 9:43:30 95 20 99 0 0 127/84(121) A-Fib 0 (11) 10(A) , No pain 9:47:36 113 20 98 0 0 122/98(116) A-Fib 0 (11) 10(A) , No pain 9:51:41 114 19 98 0 0 120/97(113) A-Fib 0 (11) 10(A) , No pain 9:55:45 108 17 98 0 0 122/97(105) A-Fib 0 (11) 10(A) , No pain 9:59:49 123 18 98 0 0 129/98(122) A-Fib 0 (11) 9(A) , No pain 10:03:48 120 17 98 0 0 116/96(111) A-Fib 0 (11) 9(A) , No pain 10:07:48 107 18 97 0 0 124/92(107) A-Fib 0 (11) 9(A) , No pain Medications Time Medication Route Dose Verified Delivered Reason Notes Effectiveness by by 9:45:20 Oxygen NC 2 Art Art Per physician l/min Mika Brennan RN RN 9:45:33 Heparin Flush added 2 Art Art used for Bag to bags Mika Brennan RN procedure (1000units/500ml field RN NS) 9:45:45 0.9% NaCl I.V. 100 Art Art Per physician ml/hr Mika Brennan RN RN 9:57:15 Fentanyl I.V. 50 Art Art for sedation mcg Mika Brennan RN RN 9:57:25 Versed I.V. 1 mg Art Art for sedation Mika Brennan RN RN 10:00:24 Fentanyl I.V. 25 Art Art for sedation mcg Mika Brennan RN RN 10:00:31 Versed I.V. 0.5 Art Art for sedation mg Mika Brennan RN RN 10:01:29 Heparin Bolus I.V. 4000 Art Art for units Mika Brennan RN anticoagulation RN 10:03:14 Lopressor I.V. 5 mg Art Laly Per physician Mika Brennan RN merchandising stock associate Log Time Note 8:56:49 PCI Cath Status : Elective 8:58:43 Lab Result : Hemoglobin 11.6 g/dl 8:58:43 Lab Result : Creatinine 1.1 mg/dl 8:58:43 Lab Result : BUN 20 mg/dl 8:58:43 Lab Result : Hematocrit 36.2 % 8:59:31 Patient Weight : 230.47 kg 8:59:37 Patient Height : 66.5 cm 8:59:41 Admit Source: Other 8:59:45 Insurance Payor : Private health insurance, Medicare 9:00:03 Diagnostic Cath status Elective 9:00:05 Art Brennan RN sent for patient. Start room use. 9:26:01 Time tracking: Regular hours 9:26:05 Plan of Care:Hemodynamics will remain stable., Cardiac rhythm will remain stable., Comfort level will be maintained., Respiratory function will remain adequate., Patient/ family verbilizes understanding of procedure., Procedure tolerated without complication., Recovers from procedure without complications.. 9:31:52 Patient received from Pre/Post Procedure Room to CCL 1 Alert and oriented. Tansferred to table in Supine position. 9:31:53 Warm blankets applied, and patti hugger turned on for patient comfort. 9:31:53 Correct patient and procedure confirmed by team. 9:31:55 Signed procedure consent form obtained from patient. 9:31:56 ECG and BP/O2 sat monitors applied to patient. 9:32:00 H&P Date Dictated: 10/23/2016 Within 30 days and on chart., H&P Addendum completed by physician on day of procedure. (MUST COMPLETE FOR ALL OUTPATIENTS). 9:42:25 Vital chart was started 9:44:52 Baseline sample Acquired. 9:45:04 Rhythm: atrial fibrillation 9:45:06 Full Disclosure recording started 9:45:10 Pre-procedure instructions explained to patient. 9:45:11 Pre-op teaching completed and patient verbalized understanding. 9:45:12 Family in waiting room. 9:45:13 Patient NPO since Midnight. 9:45:18 Patient allergic to No known allergies 9:45:20 Oxygen 2 l/min NC was administered by Atr Brennan RN; Per physician; 9:45:20 Is the patient allergic to Iodine/contrast media? No. 9:45:21 Is patient on blood thinner?Yes 9:45:33 Heparin Flush Bag (1000units/500ml NS) 2 bags added to field was administered by Art Brennan RN; used for procedure; 9:45:45 0.9% NaCl 100 ml/hr I.V. was administered by Art Brennan RN; Per physician; 9:46:07 ACC The patient was administered the following blood thiners within the last 24 hours: ACCPlavix 9:46:08 Patient diabetic? No. 9:46:10 Previous problem with sedation/anesthesia? No ? 9:46:11 Snore? Yes 9:46:12 Sleep apnea? Yes 9:46:13 Deviated septum? No 9:46:13 Opens mouth fully? Yes 9:46:14 Sticks out tongue? Yes 9:46:18 Airway obstruction? Yes copd 9:46:20 Dentures? Yes out 9:46:24 Pre procedure: right dorsailis pedis pulse 1+ Palpable, but thready & weak; easily obliterated 9:46:27 Patient pain scale 0/10 ?. 9:46:59 Patient pain scale 0/10 ?. 9:47:07 IV patent on arrival in left forearm with 0.9% NaCl at [facility]. 9:47:10 Lab results completed and on chart. 9:47:13 Right groin area was prepped with chlora-prep and draped in sterile fashion 9:47:14 Alarms reviewed by R. N. 9:47:14 Sharps counted by scrub and verified by R.N. 9:47:20 Use device set Femoral PCI 9:47:21 Tegaderm 4 x 4 opened to sterile field. 9:47:22 Acist Manifold opened to sterile field. 9:47:23 Acist Syringe opened to sterile field. 9:47:24 Acist Hand Control opened to sterile field. 9:47:24 Bag Decanter opened to sterile field. 9:47:24 Medline Cath Pack opened to sterile field. 9:47:25 Terumo 6Fr Spencer Sheath opened to sterile field. 9:47:25 St Hussein 260cm J .035 wire opened to sterile field. 9:47:26 Merit BasixCompak Inflation Kit opened to sterile field. 9:47:35 Eason Whisper J 300cm 0.014 guide wire opened to sterile field. 9:54:03 Zero performed for pressure channel P1 9:56:44 Physician arrived 9:56:45 --------ALL STOP TIME OUT------ 9:56:46 Final Timeout: patient, procedure, and site verified with staff and physician. All members of the team are in agreement. 9:56:48 Right groin site verified by team. 9:56:51 Physical assessment completed. ASA score P 2 - A patient with mild systemic disease as per Anand Nino MD. 9:56:54 Sedation plan: IV Moderate Sedation Versed, Fentanyl 9:57:15 Fentanyl 50 mcg I.V. was administered by Art Brennan RN; for sedation; 9:57:25 Versed 1 mg I.V. was administered by Art Brennan RN; for sedation; 10:00:08 Procedure started. 10:00:10 Local anesthetic to right femoral artery with Lidocaine 2% by Anand Nino MD.INITIAL ACCESS ONLY 10:00:24 Fentanyl 25 mcg I.V. was administered by Art Brennan RN; for sedation; 10:00:31 Versed 0.5 mg I.V. was administered by Art Brennan RN; for sedation; 10:00:37 A 6 Fr Short sheath was inserted into the Right Femoral artery 10:01:18 Cordis 6FR XBLAD 4.0 guide catheter opened to sterile field. 10:01:26 6 Fr xblad 4 guide catheter was inserted over the wire 10:01:29 Heparin Bolus 4000 units I.V. was administered by Art Brennan RN; for anticoagulation; 10:02:43 whisper wire advanced. 10:03:14 Lopressor 5 mg I.V. was administered by Art Brennan RN; Per physician; 10:04:34 Wire advanced across lesion. 10:04:38 Inflation Number: 1 A Medtronic Resolute 2.25 X 14 stent was prepped and advanced across the Prox CX. The stent was deployed at 17 IVANIA for 0:10 (min:sec). 10:05:12 Stent catheter was removed intact over wire. 10:05:13 Wire removed. 10:05:13 Guide catheter removed. 10:05:20 Vascade 6/7 Fr Closure Device opened to sterile field. 10:06:29 Sheath removed intact; hemostasis achieved with Vascade Closure System to the Right Femoral artery. 10:06:31 Procedure ended.(Physican Out) 10:06:51 Fluoroscopy time 01.70 minutes. 10:06:56 Flurop Dose total: 235 10:06:56 Fluoroscopy dose: 235 mGy 10:07:04 Contrast amount:Isovue 300 41ml. 10:08:02 Insertion/operative site no bleeding no hematoma. 10:08:04 Post-op/insertion site Right Femoral artery dressed using a 4 x 4 and Tegaderm. 10:08:08 Post right femoral artery:stable, soft, clean and dry 10:08:10 Post Procedure Pulses reassessed and unchanged 10:08:13 Post-procedure physical assessment completed. ASA score P 2 - A patient with mild systemic disease as per Anand Nino MD. 10:08:15 Post procedure rhythm: unchanged. 10:08:19 Estimated blood loss: 10 ml 10:08:20 Post procedure instruction explained to patient.Patient verbalizes understanding. 10:08:21 Patient needs reinforcement of post procedure teaching. 10:08:52 Procedure type changed to Cath procedure, PCI procedure, Coronary Stent Initial, Miscellaneous Procedures, Moderate Sedation up to 15 minutes 10:08:52 Procedure and supply charges have been captured, reviewed, submitted and are correct. 10:09:30 Procedure Complication : No complications 10:10:13 Vital chart was stopped 10:10:13 See physician's report for complete and final results. 10:10:15 Report given to Pre/Post Procedure Room. 10::31 Patient transfered to Pre/Post Procedure Room with Stretcher. 10::34 Procedure ended. 10::34 Full Disclosure recording stopped 10:11:05 ACC-PCI Only Patient was given prescriptions, or instructed by Anand Nino MD to start/continue the following medications upon discharge: Plavix 10:11:07 End room use (Document Last) Intervention Summary Intervention Notes Time ActionType Lesion and Equipment Action# Pressure Duration Attributes Used 10:04:38 Place stent Prox CX Medtronic 1 17 00:10 Resolute 2.25 X 14 stent Device Usage Item Name Manufacture Quantity Catalog Hospital Part Current Minima l Lot# / Number Charge Number Stock Stock Serial# Code Tegaderm 4 1 [id number] 822303 138116 5 x 4 Acist Acist 1 56845 078435 512936 214450 5 Manifold Medical Systems Inc Acist Acist 1 17185 117941 799533 508610 20 Syringe Medical Systems Inc Acist Hand Acist 1 69941 531917 842771 315312 5 Control Medical Systems Inc Bag Microtek 1 2002S 452281 92462 770799 5 Decanter Medical Inc. Medline Cardinal 1 [id number] 040437 93890 770125 5 Cath [employer] Terumo 6Fr Terumo 1 [id number] 342348 593723 040743 [address] Hussein 1 962566 816623 484101 758869 30 260cm J .035 wire Merit Merit 1 [id number] 932794 977172 369569 15 BasixCompak Medical Inflation Kit Eason Eason 1 [id number] 078106 790101 242858 5 Whisper J Vascular 300cm 0.014 guide wire Cordis 6FR Cardinal 1 [id number] 408614 966947 796560 3 XBLAD 4.0 Health guide catheter Medtronic Medtronic 1 [id number] 482885 940784 1 [id number] Resolute 2.25 X 14 stent Vascade 01/03 Cardiva 1 [id number] 396230 394714 182909 5 Fr Closure Medical, Device Inc. Signature Audit [place] Stage Time Signature Unsigned Intra-Procedure 10/23/2016 Ángel Carney 10:11:29 AM RT(R) Signatures Monitor : Ángel Carney RT Signature : Date : Time : [address] [address]
[~2016-10-23 07:23] MED LIST changes: +ANORO ELLIPTA1 EACH INH; +BAYER CHEWABLE81 MG PO; +PLAVIX75 MG PO; +POTASSIUM99 M1 PO; +PROAIR HFA8.5 GM INH; +REQUIP1 MG PO; +SINGULAIR10 MG PO; +SPIRIVA18 MCG INH; +TOPROL XL50 MG PO; +XARELTO20 MG PO
[2016-10-23 07:51] VITALS: BP 120/89; Ht 168.9 cm; Wt 104.5 kg
[2016-10-23 08:15] LABS: ANION GAP 12.2 mmol/L (8-16); CALCIUM 8.8 mg/dL (8.5-10.1); CARBON DIOXIDE 28.8 mmol/L (21.0-32.0); CREATININE - SERUM 1.1 mg/dL (0.6-1.3)
[2016-10-23 08:26] LABS: BASOPHILS 0.3 % (0.0-2.0); EOSINOPHILS 3.7 % (0-7); HEMATOCRIT 36.2 % (42.0-54.0); HEMOGLOBIN 11.6 g/dL (13.5-17.5); IMMATURE GRANULOCYTES 0.2 % (0-5); LYMPHOCYTES 20.7 % (15-50); MCH 28.1 pg (26.0-34.0); MCV 87.7 fL (80.0-100.0); MONOCYTES 10.9 % (2-11); NEUTROPHILS 64.2 % (40-80); PLATELET COUNT 181 10x3/uL (130-400); RBC 4.13 10x6/uL (4.20-6.10); RDW 14.2 % (11.5-14.5); WBC 5.9 10x3/uL (4.8-10.8)
--- NOTE | 2016-10-23 10:40 | NUR ---
RESTING IN BED WITH HEAD FLAT ON PILLOW. VSS. 2L NC, NO RESP DISTRESS NOTED. RIGHT GROIN DRSG CDI, NO BLEEDING OR HEMATOMA NOTED. WILL CONTINUE TO MONITOR.
--- NOTE | 2016-10-23 11:10 | NUR ---
AT BEDSIDE. RESTING QUIETLY IN BED. VSS. 2L NC, NO RESP DISTRESS NOTED. RIGHT GROIN DRSG CDI, NO BLEEDING OR HEMATOMA NOTED. NO C/O CHEST PAIN OR NAUSEA. CALL LIGHT WITHIN REACH.
--- NOTE | 2016-10-23 11:25 | NUR ---
RESTING QUIETLY. VSS. 2L NC, NO RESP DISTRESS NOTED. NO C/O CHEST PAIN OR NAUSEA. RIGHT GROIN CDI, NO BLEEDING OR HEMATOMA NOTED. WILL CONTINUE TO MONITOR.
--- NOTE | 2016-10-23 11:55 | NUR ---
RIGHT GROIN CDI, NO BLEEDING OR HEMATOMA NOTED. VSS. NO C/O CHEST PAIN OR NAUSEA.
--- NOTE | 2016-10-23 12:25 | NUR ---
RESTING IN BED WITH AT BEDSIDE. VSS. 2L NC, NO RESP DISTRESS NOTED. RIGHT GROIN CDI, NO BLEEDING OR HEMATOMA NOTED. NO C/O CHEST PAIN OR NAUSEA. CALL LIGHT WITHIN REACH.
--- NOTE | 2016-10-23 13:10 | NUR ---
SANDWICH TRAY GIVEN. NO C/O N/V AT THIS TIME.
--- NOTE | 2016-10-23 13:37 | NUR ---
LEFT FA PIV D/C'D WITH CATHETER INTACT. BAND AID TO SITE. UP TO BEDSIDE TO GET DRESSED.
--- NOTE | 2016-10-23 13:43 | NUR ---
UP TO RESTROOM TO VOID.
--- NOTE | 2016-10-23 13:51 | NUR ---
DISCHARGE INSTRUCTIONS GIVEN, VERBALIZED UNDERSTANDING.
--- NOTE | 2016-10-23 13:56 | NUR ---
TAKEN OUT VIA WHEELCHAIR BY CATH OBSTETRICS TEACHER. LEFT FACILITY WITH FAMILY MEMBER AND ALL PERSONAL BELONGINGS.
--- NOTE | 2016-10-24 14:38 | OP ---
PATIENT NAME: MADDISON ABDI SR MEDICAL RECORD: [id number] :37 LOCATION:D.CAT ADMISSION DATE: SURGEON: ELSI BRUCE MD DATE OF OPERATION: 10/23/2016 PROCEDURES: 1. PTCA stent left circumflex. 2. Selective coronary angiography. INDICATION: Angina and coronary artery disease. PROCEDURE IN DETAIL: After informed consent was obtained and after detailed explanation of risks, benefits as well as alternative therapies, the patient elected to proceed with angiogram and angioplasty. The right femoral area was prepped and draped in normal sterile fashion. The right femoral artery was cannulated via modified Seldinger technique with placement of 6-Turkish sheath. All catheters exchanged through this sheath. FINDINGS: The left circumflex has 80% stenosis in the proximal vessel. This was addressed with 2-5 x 14 mm Resolute stent taken to 17 atmospheres. Result was 0% residual stenosis. OVERALL IMPRESSION: Successful percutaneous transluminal coronary angioplasty stent of the left circumflex going from 80% initial stenosis to 0% residual. TRANSINT:[id number] Voice Confirmation ID: [id number] DOCUMENT ID: [id number] ELSI BRUCE MD at 1438 CC: [id number] DICTATION DATE: 10/23/16 1008 SURVEYOR: 10/23/16 1132 DEP CLI 10/23/[address] [address]
--- NOTE | 2016-10-24 14:38 | HP ---
PATIENT: MADDISON ABDI MEDICAL RECORD: [id number] ACCOUNT: [id number] LOCATION:[facility] : 39 ADMISSION DATE: 10/23/16 HISTORY AND PHYSICAL EXAMINATION DATE: 10/23/2016 DIAGNOSES: 1. Angina. 2. Coronary artery disease. 3. Recent percutaneous transluminal coronary angioplasty stent of right coronary artery and left anterior descending with concomitant disease of the left circumflex. 4. Hypertension. 5. Hyperlipidemia. HISTORY OF PRESENT ILLNESS: Mr. Abdi presented with unstable angina, found to have 3-vessel coronary artery disease, underwent successful PTCA stent of the RCA and LAD, is now brought for PTCA stent of 80% to 90% stenosis of the left circumflex. PHYSICAL EXAMINATION: GENERAL APPEARANCE: Well-nourished, well-developed, appears stated age. Level of distress, comfortable. PSYCHIATRIC: Mental status, alert, normal affect. Orientation, oriented to time, place and person. EYES: Lids and conjunctiva, noninjected. No discharge, no pallor. ENT: Lips, teeth, gums, normal dentition. Oropharynx, no cyanosis, no pallor. NECK: Carotid arteries, bilateral normal upstroke, no bruits, no thrills. JUGULAR VEINS: No jugular venous pressure or distention. CERVICAL LYMPH NODES: Nontender, nonenlarged. THYROID: Not enlarged. Nontender. No nodules. LUNGS: Respiratory effort, unlabored. CHEST: Normal curvature. No thoracic deformity. No chest wall tenderness. Percussion, resonant. Auscultation, clear. No wheezes, no rales, no rhonchi. CARDIOVASCULAR: Precordial exam, nondisplaced. No heaves or pericardial thrills. Rate and rhythm, regular. Heart sounds, normal S1, normal S2. No S3, no gallop, no rub. Systolic murmur, not heard. Diastolic murmur, not heard. EXTREMITIES: No cyanosis, no edema. Peripheral pulses, full and equal in all extremities, except as noted. No bruits appreciated. ABDOMEN: Soft, nondistended. Normal aorta. No bruit. Nontender. No masses. Liver, nontender, no hepatomegaly. Spleen, nontender, no splenomegaly. MUSCULOSKELETAL: No joint tenderness. No joint swelling. No erythema. NEUROLOGICAL: Normal gait, normal strength, normal tone. SKIN: Warm and dry. REVIEW OF SYSTEMS: The patient reports easy bruising but reports no swollen glands. The patient reports no fever, no night sweats, no significant weight gain, no significant weight loss. No significant exercise tolerance. The patient reports no dry eyes, no irritation, no vision change. Patient reports no difficulty hearing and no ear pain. Patient reports no frequent nose bleeds or nose and sinus problems. Patient reports on arm pain on exertion. No shortness of breath while lying down. No history of heart murmur. Patient reports no cough, no wheezing or coughing up blood. Patient reports no abdominal pain, no vomiting. Normal appetite. No diarrhea and not vomiting HISTORY AND PHYSICAL [id number] MADDISON ABDI SR blood. No nausea and no constipation. Patient reports no incontinence. No difficulty urinating. No hematuria. No increased frequency. Patient reports no muscle aches. No weakness, no arthralgias, no back pain. No swelling of the extremities. Patient reports no abnormal mole, no jaundice, no rashes. Reports no loss of consciousness. No weakness and no numbness. No seizures, dizziness, or headaches. The patient reports no depression, no sleep disturbance, feeling safe in a relationship and no alcohol abuse. Patient reports on fatigue. Reports no runny nose or sinus pressure. No itching, no hives, and no frequent sneezing. OVERALL IMPRESSION: Anginal symptomatology with significant disease of the left circumflex. We will proceed with percutaneous transluminal coronary angioplasty stent the left circumflex. TRANSINT:[id number] Voice Confirmation ID: [id number] DOCUMENT ID: [id number] ELSI BRUCE MD at 1438 CC: [id number] DICTATION DATE: 10/23/1637 MARKETING ANALYTICS SPECIALIST: 10/23/16 0957 DEP CLI 10/23/16 [facility] [address] [place] [address]
== END 2016-10-23 13:56 | disposition home or self-care (01) ==
LOC: D.CATH 07:23
PROVIDERS: Internal Medicine Interventional Cardiology
DX: I25.119 Atherosclerotic heart disease of native coronary artery with unspecified angina pectoris (principal); I10 Essential (primary) hypertension; E78.5 Hyperlipidemia, unspecified; Z95.5 Presence of coronary angioplasty implant and graft

== ENCOUNTER 2017-06-04 09:21 | Emergency (ER) | payer MEDICARE, OTHER ==
[2016-10-23 07:51] VITALS: BMI 36.6
[2017-06-04 10:49] LABS: BASOPHILS 0.4 % (0-2); EOSINOPHILS 2.8 % (0-7); HEMATOCRIT 38.5 % (42.0-54.0); HEMOGLOBIN 13.3 g/dL (13.5-17.5); IMMATURE GRANULOCYTES 0.3 % (0-5); LYMPHOCYTES 15.6 % (15-50); MCHC 34.5 g/dL (31.0-37.0); MCV 86.7 fL (80.0-100.0); MEAN PLATELET VOLUME 10.6 fL (7.4-10.4); MONOCYTES 15.2 % (2-11); NEUTROPHILS 65.7 % (40-80); PLATELET COUNT 197 10x3/uL (130-400); RBC 4.44 10x6/uL (4.20-6.10); RDW 13.6 % (11.5-14.5); WBC 7.3 10x3/uL (4.8-10.8)
[2017-06-04 11:15] LABS: ALBUMIN 3.2 g/dL (3.4-5.0); ALKALINE PHOSPHATASE 106 U/L (46-116); ALT (SGPT) 30 U/L (10-68); BILIRUBIN - TOTAL 0.39 mg/dL (0.2-1.3); CALC OSMOLALITY 284 mosm/kg (275-300); CALCIUM 8.8 mg/dL (8.5-10.1); CHLORIDE - SERUM 105 mmol/L (98-107); GLUCOSE 114 mg/dL (74-106); POTASSIUM - SERUM 3.8 mmol/L (3.5-5.1); PROTEIN - SERUM 6.9 g/dL (6.4-8.2); SODIUM 142 mmol/L (136-145); UREA NITROGEN 15 mg/dL (7-18); eGFR NON AFRICAN AMERICAN 76 mL/min (90-120)
[2017-06-04 11:49] LABS: APPEARANCE CLEAR (CLEAR); BACTERIA FEW /hpf (NONE SEEN); BILIRUBIN NEGATIVE (NEGATIVE); COLOR DK YELLOW (YELLOW); EPITHELIAL CELLS 0-5 /hpf (0-5); GLUCOSE NEGATIVE (NEGATIVE); HYALINE CAST RARE /lpf (NONE SEEN); KETONE NEGATIVE (NEGATIVE); MUCUS >1+ /lpf (NONE SEEN); NITRITE NEGATIVE (NEGATIVE); PROTEIN 1+ mg/dL (NEGATIVE); RED CELLS - URINE 0-5 /hpf (0-5); WHITE CELLS - URINE RARE /hpf (0-5)
== END 2017-06-04 13:10 | disposition home or self-care (01) ==
LOC: D.ER 09:21
PROVIDERS: Emergency Medicine
DX: J20.9 Acute bronchitis, unspecified (principal); J44.9 Chronic obstructive pulmonary disease, unspecified; I10 Essential (primary) hypertension

== ENCOUNTER 2017-10-21 21:44 | Inpatient (IN) | payer MEDICARE, OTHER ==
[~2017-10-21] VITALS: Ht 168.9 cm; Wt 104.3 kg
--- NOTE | ~2017-10-21 | HP ---
PATIENT: MADDISON ABDI SR MEDICAL RECORD: [id number] ACCOUNT: [id number] LOCATION:D.MS [id number] : 37 ADMISSION DATE: 10/22/17 HISTORY AND PHYSICAL EXAMINATION CHIEF COMPLAINT: Nausea, vomiting, and abdominal pain. HISTORY: This 81-year-old white male presented to the Emergency Department complaining of nausea, vomiting, and abdominal pain, especially after he eats. Symptoms have been going on now for the last 2 weeks. He also complains of lower back pain that radiates around to his abdomen at times. In the ER, his lab work was okay except platelets were 125,000 and CK was 2037 (normal 21-232). He is admitted with generalized weakness, abdominal pain, and elevated CPK. PAST MEDICAL HISTORY: He has hypertension, obstructive sleep apnea, constipation, hyperlipidemia, diet-controlled diabetes, osteoarthritis, and depression. He has coronary artery disease with a stent by Dr. Nino. He has restless leg syndrome. PAST SURGICAL HISTORY: He had gastric bypass surgery by Dr. Turner in 1999. He has had left shoulder surgery for torn rotator cuff and spur removal by Dr. Holcomb. He has had nasal surgery times 2. ALLERGIES: None known. SOCIAL HISTORY: He is a retired maintenance shop welder and lives with his . HABITS: Heavy drinker, quit at age 38. Former smoker. No drugs. FAMILY HISTORY: Father at age 60 of alcoholism. Mother of unknown causes, she had hypertension. A brother of alcoholism. HOME MEDICATIONS: Include tamsulosin 0.4 mg once a day, Valium 10 mg take one-half at bedtime as needed for sleep, allopurinol 300 mg once a day, Plavix 75 mg once a day, metoprolol tartrate 50 mg once a day, sotalol 80 mg once a day, ropinirole 1 mg at bedtime, Singulair 10 mg once a day, omeprazole 20 mg once a day, venlafaxine 50 mg twice a day, simvastatin 40 mg at bedtime. REVIEW OF SYSTEMS: GENERAL: No major weight changes. HEENT: No particular sinus or allergy problems. RESPIRATORY: No diagnosis of COPD or emphysema. CARDIAC: He has coronary disease with stents. Dr. Nino is his ship mate. GASTROINTESTINAL: He has had gastric bypass surgery. He has reflux. GENITOURINARY: No significant problems there. MUSCULOSKELETAL: He has arthritic aches and pains, especially in his stumps. NEUROLOGIC: No migraines. No seizures. PSYCHIATRIC: He has some mild depression. PHYSICAL EXAMINATION: VITAL SIGNS: Temperature 98.7, pulse 68, respirations 21, blood pressure 169/78. GENERAL: He is awake and alert. He does not appear to be in acute distress. HEENT: Grossly within normal limits. NECK: Supple. HISTORY AND PHYSICAL [id number] MADDISON ABDI SR HEART: Regular rate and rhythm without murmur. LUNGS: Fairly clear. ABDOMEN: Obese. He has generalized tenderness in the epigastric area. No guarding, no rebound, no mass. EXTREMITIES: No edema. BACK: Some generalized tenderness across the lower back. Straight leg raises are negative. LABORATORY DATA: EKG shows normal sinus rhythm, rate of 67. Urinalysis: Moderate ketones, few bacteria. CBC with a white count of 5600, hemoglobin 13.6, platelets number 125,000. Basic metabolic panel was unremarkable. Liver enzymes were okay except AST little elevated at 87. Lactic acid level is normal at 1.1. Troponin normal at 0.025. ProBNP normal at 572. CK is high at 2037. Albumin is okay at 3.5, lipase 77. Chest x-ray shows some interstitial edema, otherwise normal. ASSESSMENT: 1. Nausea, epigastric pain, especially after eating times 2 weeks. 2. Weakness. 3. Back pain. 4. Elevated CPK. PLAN: Clear liquid diet. He had an MRI ordered from the ER. We will check abdominal ultrasound and probably consult GI. Other tests and procedures as warranted. TRANSINT:[id number] Voice Confirmation ID: [id number] DOCUMENT ID: [id number] GEORGIA LIAO MD at 1356 CC: [id number] DICTATION DATE: 10/23/17 1215 PAINT MIXER MACHINE: 10/23/17 1350 ADM IN [place] [id number] [place] [id number]
[2017-10-21 22:08] LABS: BASOPHILS 0.2 % (0-2); EOSINOPHILS 2.3 % (0-7); HEMATOCRIT 39.8 % (42.0-54.0); HEMOGLOBIN 13.6 g/dL (13.5-17.5); IMMATURE GRANULOCYTES 0.2 % (0-5); MCH 29.8 pg (26.0-34.0); MCHC 34.2 g/dL (31.0-37.0); MCV 87.1 fL (80.0-100.0); MEAN PLATELET VOLUME 10.1 fL (7.4-10.4); MONOCYTES 10.2 % (2-11); NEUTROPHILS 75.1 % (40-80); RBC 4.57 10x6/uL (4.20-6.10); RDW 14.1 % (11.5-14.5); WBC 5.6 10x3/uL (4.8-10.8)
[2017-10-21 22:19] LABS: PLATELET COUNT 125 10x3/uL (130-400)
[2017-10-21 22:26] LABS: ALBUMIN 3.5 g/dL (3.4-5.0); ALKALINE PHOSPHATASE 80 U/L (46-116); ALT (SGPT) 41 U/L (10-68); BILIRUBIN - TOTAL 0.76 mg/dL (0.2-1.3); CALC OSMOLALITY 283 mosm/kg (275-300); CALCIUM 8.5 mg/dL (8.5-10.1); CARBON DIOXIDE 27.5 mmol/L (21.0-32.0); CHLORIDE - SERUM 104 mmol/L (98-107); GLUCOSE 125 mg/dL (74-106); POTASSIUM - SERUM 4.2 mmol/L (3.5-5.1); PROTEIN - SERUM 7.6 g/dL (6.4-8.2); SODIUM 142 mmol/L (136-145); UREA NITROGEN 13 mg/dL (7-18); eGFR NON AFRICAN AMERICAN 76 mL/min (90-120)
[2017-10-21 22:39] LABS: APPEARANCE CLEAR (CLEAR); COLOR YELLOW (YELLOW); SPECIFIC GRAVITY 1.015 (1.005-1.020)
[2017-10-21 22:40] LABS: BACTERIA FEW /hpf (NONE SEEN); BILIRUBIN NEGATIVE (NEGATIVE); EPITHELIAL CELLS 0-5 /hpf (0-5); GLUCOSE NEGATIVE (NEGATIVE); KETONE MODERATE mg/dL (NEGATIVE); NITRITE NEGATIVE (NEGATIVE); PROTEIN NEGATIVE (NEGATIVE); UROBILINOGEN NORMAL (NORMAL); WHITE CELLS - URINE 0-5 /hpf (0-5)
[2017-10-21 22:47] LABS: AMYLASE - SERUM 38 U/L (25-115); LIPASE 77 U/L (73-393); PRO BNP 572 pg/mL (0-450); TROPONIN-I 0.025 ng/mL (0.000-0.060)
[2017-10-21 22:50] LABS: CREATINE KINASE 2037 UL (21-232)
[2017-10-22 00:27] VITALS: BP 147/91; BMI 36.6
[2017-10-22 04:00] VITALS: BP 168/75
[2017-10-22 08:39] VITALS: BP 161/76
[2017-10-22 12:05] VITALS: BP 139/67; BP 143/52
[2017-10-22] MEDS ORDERED: VALIUM5 MG PO (13:47)
[2017-10-22 14:34] VITALS: BMI 36.5
[2017-10-22 16:45] VITALS: BP 133/61
[2017-10-22 20:49] VITALS: BP 140/51
[2017-10-23] VITALS (7 sets, daily range): BP systolic 117–180; BP diastolic 58–82; Ht 168.9 cm; Wt 104.3 kg
[2017-10-23 09:45] LABS: EOSINOPHILS 3.1 % (0-7); HEMATOCRIT 37.7 % (42.0-54.0); HEMOGLOBIN 12.7 g/dL (13.5-17.5); IMMATURE GRANULOCYTES 0.3 % (0-5); LYMPHOCYTES 25.5 % (15-50); MCH 29.1 pg (26.0-34.0); MCHC 33.7 g/dL (31.0-37.0); MCV 86.5 fL (80.0-100.0); MEAN PLATELET VOLUME 9.9 fL (7.4-10.4); MONOCYTES 12.6 % (2-11); NEUTROPHILS 57.5 % (40-80); PLATELET COUNT 109 10x3/uL (130-400); RBC 4.36 10x6/uL (4.20-6.10)
[2017-10-23 09:52] LABS: WBC 3.9 10x3/uL (4.8-10.8)
[2017-10-23 10:23] LABS: ALKALINE PHOSPHATASE 60 U/L (46-116); ALT (SGPT) 31 U/L (10-68); CALCIUM 8.2 mg/dL (8.5-10.1); CARBON DIOXIDE 27.4 mmol/L (21.0-32.0); CHLORIDE - SERUM 108 mmol/L (98-107); GLUCOSE 131 mg/dL (74-106); PROTEIN - SERUM 6.6 g/dL (6.4-8.2); SODIUM 143 mmol/L (136-145); eGFR NON AFRICAN AMERICAN 76 mL/min (90-120)
[2017-10-23 10:24] LABS: CALC OSMOLALITY 285 mosm/kg (275-300); CREATINE KINASE 810 UL (21-232); POTASSIUM - SERUM 3.4 mmol/L (3.5-5.1); UREA NITROGEN 9 mg/dL (7-18)
[2017-10-23 10:25] LABS: CKMB 1.2 U/L (0.0-3.6)
[2017-10-24 05:03] VITALS: BP 146/73
[2017-10-24 06:27] LABS: BASOPHILS 0.5 % (0-2); HEMATOCRIT 36.2 % (42.0-54.0); HEMOGLOBIN 12.1 g/dL (13.5-17.5); LYMPHOCYTES 31.3 % (15-50); MCH 28.7 pg (26.0-34.0); MCHC 33.4 g/dL (31.0-37.0); MCV 85.8 fL (80.0-100.0); MONOCYTES 12.5 % (2-11); NEUTROPHILS 49.7 % (40-80); PLATELET COUNT 124 10x3/uL (130-400); RBC 4.22 10x6/uL (4.20-6.10); RDW 13.9 % (11.5-14.5); WBC 3.7 10x3/uL (4.8-10.8)
[2017-10-24 06:54] LABS: ALKALINE PHOSPHATASE 60 U/L (46-116); ALT (SGPT) 30 U/L (10-68); APTT 31.9 SECONDS (22.8-39.4); BILIRUBIN - TOTAL 0.59 mg/dL (0.2-1.3); CALC OSMOLALITY 284 mosm/kg (275-300); CALCIUM 8.2 mg/dL (8.5-10.1); CARBON DIOXIDE 27.7 mmol/L (21.0-32.0); CHLORIDE - SERUM 107 mmol/L (98-107); GLUCOSE 86 mg/dL (74-106); INR 1.06 (0.85-1.17); POTASSIUM - SERUM 3.3 mmol/L (3.5-5.1); PROTEIN - SERUM 6.6 g/dL (6.4-8.2); PROTIME 13.4 SECONDS (11.6-15.0); SODIUM 144 mmol/L (136-145); UREA NITROGEN 10 mg/dL (7-18); eGFR NON AFRICAN AMERICAN 76 mL/min (90-120)
[2017-10-24 08:02] VITALS: BP 186/66
[2017-10-24 12:00] VITALS: BP 149/76
[2017-10-24] MEDS ORDERED: CARAFATE1 G PO (14:06)
== END 2017-10-24 16:12 | disposition home or self-care (01) | DRG 392 ==
LOC: D.ER 21:44 → D.EDHOLD 23:40 → D.MS 23:40 → OBSVTIME 10-22 00:34 → D.MS 10-22 00:35
PROVIDERS: Family Medicine; Internal Medicine Gastroenterology
PROC: 0DD78ZX Extraction of Stomach, Pylorus, Via Natural or Artificial Opening Endoscopic, Diagnostic (ICD-10-PCS; principal; 2017-10-24 07:30)
DX: K29.70 Gastritis, unspecified, without bleeding (principal); T39.395A Adverse effect of other nonsteroidal anti-inflammatory drugs [NSAID], initial encounter; K44.9 Diaphragmatic hernia without obstruction or gangrene; R53.1 Weakness; R79.89 Other specified abnormal findings of blood chemistry; D64.9 Anemia, unspecified; I10 Essential (primary) hypertension; G47.33 Obstructive sleep apnea (adult) (pediatric); E11.9 Type 2 diabetes mellitus without complications; G25.81 Restless legs syndrome

== ENCOUNTER → 2018-05-10 07:34 | Outpatient (CLI) | payer MEDICARE, OTHER ==
[~2018-05-10] VITALS: Ht 168.9 cm; Wt 102.3 kg
--- NOTE | ~2018-05-10 | HEMODYNAMI ---
PATIENT:MADDISON ABDI SR MEDICAL RECORD: [id number] : 39 LOCATION:D[facility] ADMISSION DATE: 05/10/18 Generatedon:05/10/20189:34 Patient name: MADDISON ABDI Patient #: [id number] SSN: : 1935 Date of study: 05/10/2018 Page: Of Hemodynamic Procedure Report Patient Data Patient Demographics Procedure consent was obtained First Name: MADDISON Gender: Male Last Name: JIN Suffix: [facility] Initial: F : 1935 Patient #: [id number] Age: 82 year(s) Race: Unknown Additional ID: [id number] Contact details Address: [address] [place] [address] State: [place] City: [place] Zip code: [address] Past Medical History Allergies: No known allergies Admission Admission Data Admission Date: 05/10/2018 Admission Time: 7:34 Procedure Procedure Types Cath Procedure Diagnostic Procedure LHC Coronaries only Sedation Charges Moderate Sedation up to 15 minutes PCI Procedure Coronary Stent Coronary Stent Initial Procedure Description Procedure Date Procedure Date: 05/10/2018 Procedure Start Time: 9:09 Procedure End Time: 9:33 Procedure Staff Name Function Anand Nino MD Performing Physician Tracey Mandujano RT Monitor Hipolito Mota RN Nurse Elizabeth Cavanaugh RN Nurse Ángel Carney RT Scrub Procedure Data Cath Procedure Fluoroscopy Diagnostic fluoroscopy Total fluoroscopy Time: 7.2 time: 7.2 min min Diagnostic fluoroscopy Total fluoroscopy dose: dose: 1204 mGy 1204 mGy Contrast Material Contrast Material Type Amount (ml) Isovue 300 109 Entry Location Entry Primary Successful Side Size Upsize Upsize Entry Closure Succes sful Closure Location (Fr) 1 (Fr) 2 (Fr) Remarks Device Remarks Femoral Right 5 Fr 6 Fr Exoseal artery Short Estimated blood loss: 10 ml Diagnostic catheters Device Type Used For End Catheter Placement MULTIPACK Pigtail 5 Fr LV Angiography catheter MULTIPACK JL 4.0 5Fr Left Coronary catheter Angiography MULTIPACK 3DRC 5Fr Right Coronary catheter Angiography Procedure Complications No complications Procedure Medications Medication Administration Route Dosage 0.9% NaCl I.V. 100 ml/hr Oxygen etCO2 Nasal cannula 2 l/min Lidocaine 2% added to field 20 Heparin Flush Bag added to field 2 bags (1000units/500ml NS) Versed I.V. 2 mg Fentanyl I.V. 100 mcg Versed I.V. 1 mg Fentanyl I.V. 25 mcg Heparin Bolus I.V. 4000 units Integrilin (Bolus I.V. 9 ml 2mg/ml) Plavix P.O. 600 mg Hemodynamics Rest Heart Rate: 63 (bpm) Snapshots Pre Cath Intra NCS Post Cath Vital Signs Time Heart Resp SPO2 etCO2 NIBP (mmHg) Rhythm Pain Sedation Rate (ipm) (%) (mmHg) Status Level (bpm) 8:44:07 65 23 96 21 174/85(143) NSR 0 (11) 10(A) , No pain 8:48:44 63 18 99 37.6 178/89(139) NSR 0 (11) 10(A) , No pain 8:53:16 64 14 96 17.2 167/85(135) NSR 0 (11) 10(A) , No pain 8:57:53 65 15 97 44.3 166/84(140) NSR 0 (11) 10(A) , No pain 9:02:17 66 13 95 36.8 151/79(121) NSR 0 (11) 10(A) , No pain 9:06:43 67 13 96 42.8 157/88(127) NSR 0 (11) 10(A) , No pain 9:11:07 68 15 97 45.8 156/84(122) NSR 0 (11) 10(A) , No pain 9:15:38 71 14 96 44.3 148/85(125) NSR 0 (11) 9(A) , No pain 9:20:06 72 16 96 25.5 150/81(127) NSR 0 (11) 9(A) , No pain 9:24:26 74 15 95 12 141/75(116) NSR 0 (11) 9(A) , No pain 9:28:51 75 16 97 45.9 152/85(116) NSR 0 (11) 10(A) , No pain 9:33:17 74 15 97 45.9 147/85(117) NSR 0 (11) 10(A) , No pain Medications Time Medication Route Dose Verified Delivered Reason Notes Effectiveness by by 8:48:40 0.9% NaCl I.V. 100 Anand Elizabeth used for ml/hr Trung Cavanaugh access clerk 8:48:49 Oxygen etCO2 2 Anand Elizabeth used for Nasal l/min Trung Cavanaugh procedure cannula RN 8:48:58 Lidocaine 2% added 20ml Anand Anand for local to vial Trung Nino MD anesthetic field 8:49:05 Heparin Flush added 2 Anand Anand used for Bag to bags Trung Nino MD procedure (1000units/500ml field NS) 9:06:57 Versed I.V. 2 mg Anand Elizabeth for sedation Trung Cavanaugh RN 9:07:06 Fentanyl I.V. 100 Anand Elizabeth for sedation mcg Trung Cavanaugh RN 9:13:02 Versed I.V. 1 mg Anand Elizabeth for sedation Trung Cavanaugh RN 9:13:07 Fentanyl I.V. 25 Anand Elizabeth for sedation mcg Trung Cavanaugh RN 9:18:53 Heparin Bolus I.V. 4000 Anand Elizabeth for verifi ed units Trung Cavanaugh anticoagulation with Dr. MARIBELL Nino 9:21:14 Integrilin I.V. 9 ml Anand Elizabeth for wasted (Bolus 2mg/ml) Trung Cavanaugh anticoagulation 1mL RN 9:28:20 Plavix P.O. 600 Anand Elizabeth for mg Trung Cavanaugh antiplatelet RN therapy Procedure Log Time Note 8:32:01 Time tracking: Regular hours (M-F 7:00 - 5:00) 8:32:05 Plan of Care:Hemodynamics will remain stable., Cardiac rhythm will remain stable., Comfort level will be maintained., Respiratory function will remain adequate., Patient/ family verbilizes understanding of procedure., Procedure tolerated without complication., Recovers from procedure without complications.. 8:32:49 Hipolito Mota RN sent for patient. Start room use. 8:37:01 Patient received from Pre/Post Procedure Room to CCL 1 Alert and oriented. Tansferred to table in Supine position. 8:37:02 Warm blankets applied, and patti hugger turned on for patient comfort. 8:37:02 Correct patient and procedure confirmed by team. 8:37:04 Signed procedure consent form obtained from patient. 8:37:05 ECG and BP/O2 sat monitors applied to patient. 8:42:40 Vital chart was started 8:43:20 H&P Date Dictated: 05/09/2018 Within 30 days and on chart., H&P Addendum completed by physician on day of procedure. (MUST COMPLETE FOR ALL OUTPATIENTS). 8:43:21 Pre-procedure instructions explained to patient. 8:43:21 Pre-op teaching completed and patient verbalized understanding. 8:43:23 Family in patients room. 8:43:27 Patient NPO since Midnight. 8:45:45 Patient allergic to No known allergies 8:45:47 Is the patient allergic to Iodine/contrast media? No. 8:45:54 Is patient on blood thinner?No 8:45:57 Patient diabetic? Yes. 8:46:16 Previous problem with sedation/anesthesia? No ? 8:46:17 Snore? Yes 8:46:19 Sleep apnea? Yes 8:46:20 Deviated septum? No 8:46:21 Opens mouth fully? Yes 8:46:22 Sticks out tongue? Yes 8:46:34 Airway obstruction? No ? 8:47:31 If diabetic: On Metformin? No 8:47:36 Dentures? No ? 8:47:40 Pre procedure: right dorsailis pedis pulse 2+ Normal; easily identifiable; not easily obliterated 8:47:43 Patient pain scale 0/10 ?. 8:47:48 IV patent on arrival in left forearm with 0.9% NaCl at KVO. 8:47:50 Lab results completed and on chart. 8:47:52 Right groin area was prepped with chlora-prep and draped in sterile fashion 8:47:53 Alarms reviewed by R. N. 8:47:54 Sharps counted by scrub and verified by R.N. 8:48:15 Use device set Femoral Dx 8:48:16 ACIST Syringe (86369) opened to sterile field. 8:48:16 Bag Decanter () opened to sterile field. 8:48:17 Medline Cath Pack ([id number]) opened to sterile field. 8:48:17 DIAGNOSTIC WIRE .035 260cm J wire (022880) opened to sterile field. 8:48:19 ACIST Hand Control (03556) opened to sterile field. 8:48:19 ACIST Manifold (64790) opened to sterile field. 8:48:20 DIAGNOSTIC Multipack 5Fr catheter set ([id number]) opened to sterile field. 8:48:21 Tegaderm 4 x 4 (1626W) opened to sterile field. 8:48:22 SHEATH Prelude 5Fr 0.035 (YNC-2M-38-035) opened to sterile field. 8:48:40 0.9% NaCl 100 ml/hr I.V. was administered by Elizabeth Cavanaugh RN; used for procedure; 8:48:49 Oxygen 2 l/min etCO2 Nasal cannula was administered by Elizabeth Cavanaugh RN; used for procedure; 8:48:58 Lidocaine 2% 20ml vial added to field was administered by Anand Nino MD; for local anesthetic; 8:49:05 Heparin Flush Bag (1000units/500ml NS) 2 bags added to field was administered by Anand Nino MD; used for procedure; 8:51:47 Baseline sample Acquired. 8:51:49 Rhythm: sinus rhythm 8:51:50 Full Disclosure recording started 8:55:37 Physician paged 9:00:14 Zero performed for pressure channel P1 9:06:02 Final Timeout: patient, procedure, and site verified with staff and physician. All members of the team are in agreement. 9:06:04 Right groin site verified by team. 9:06:07 Physical assessment completed. ASA score P 2 - A patient with mild systemic disease as per Anand Nino MD. 9:06:10 Sedation plan: IV Moderate Sedation Medication:Versed, Fentanyl 9:06:57 Versed 2 mg I.V. was administered by Elizabeth Cavanaugh RN; for sedation; 9:07:06 Fentanyl 100 mcg I.V. was administered by Elizabeth Cavanaugh RN; for sedation; 9:07:07 Procedure started. 9:09:04 Local anesthetic to right femoral artery with Lidocaine 2% by Anand Nino MD.INITIAL ACCESS ONLY 9:09:54 A 5 Fr sheath was inserted into the Right Femoral artery 9:10:18 A MULTIPACK Pigtail 5 Fr catheter was advanced over the wire and used for LV Angiography. REMOVED UNABLE TO CROSS VALVE 9:13:02 Versed 1 mg I.V. was administered by Elizabeth Cavanaugh RN; for sedation; 9:13:07 Fentanyl 25 mcg I.V. was administered by Elizabeth Cavanaugh RN; for sedation; 9:14:03 A MULTIPACK JL 4.0 5Fr catheter was advanced over the wire and used for Left Coronary Angiography. 9:15:22 Catheter removed. 9:15:36 A MULTIPACK 3DRC 5Fr catheter was advanced over the wire and used for Right Coronary Angiography. 9:16:09 Catheter removed. 9:16:14 Use device set MARTY PCI 9:16:15 SHEATH Prelude 6Fr 0.035 (ZMO-3Q-61-035) opened to sterile field. 9:16:18 INFLATOR Merit BasixCompak (SG4111) opened to sterile field. 9:16:20 CHOICE PT Extra Support 182cm wire ([id number]) opened to sterile field. 9:16:36 Sheath upsized to a 6 Fr Short. 9:17:50 GUIDE 6FR AR 1.0 catheter (IL3EH03) opened to sterile field. 9:18:53 Heparin Bolus 4000 units I.V. was administered by Elizabeth Cavanaugh RN; for anticoagulation; verified with Dr. Nino 9:18:56 6 Fr AR 1.0 guide catheter was inserted over the wire 9:19:09 CHOICEC PT ES wire advanced. 9:21:14 Integrilin (Bolus 2mg/ml) 9 ml I.V. was administered by Elizabeth Cavanaugh RN; for anticoagulation; wasted 1mL 9:21:50 The INTEGRITY RX 3.0 x 15 stent ([id number]) was advanced then removed because of failure to cross lesion 9:21:53 Wire removed. damaged. 9:22:02 Guide Catheter removed. unable to get back-up support 9:22:15 GUIDE 6FR 3DRC catheter ([id number]) opened to sterile field. 9:22:26 6 Fr 3DRC guide catheter was inserted over the wire 9:23:40 2ND CHOICE PT ES wire advanced. 9:25:17 The INTEGRITY RX 3.0 x 15 stent ([id number]) was advanced then removed because of failure to cross lesion 9:25:53 CHOICE PT Extra Support 182cm wire ([id number]) opened to sterile field. 9:26:10 CHOICE PT Extra Support 182cm wire ([id number]) opened to sterile field. 9:26:25 3RD CHOICE PT ES wire advanced. 9:26:52 2ND CHOICE PT ES REMOVED 9:27:09 Place stent Inflation Number: 1 A INTEGRITY RX 3.0 x 15 stent ([id number]) was prepped and advanced across the Mid RCA. The stent was deployed at 13 IVANIA for 0:05 (min:sec). 9::38 Stent catheter was removed intact over wire. 9::38 Guide catheter removed. 9::41 Wire removed. 9:28:20 Plavix 600 mg P.O. was administered by Elizabeth Cavanaugh RN; for antiplatelet therapy; 9::20 Sheath removed intact; hemostasis achieved with Exoseal to the Right Femoral artery. 9:28:21 Procedure ended.(Physican Out) 9::42 Fluoroscopy time 07.20 minutes. 9::46 Flurop Dose total: 1204 9::46 Fluoroscopy dose: 1204 mGy 9:28:50 Contrast amount:Isovue 300 109ml. 9:28:52 Sharps counted by scrub and verified by R.N. 9:28:53 Insertion/operative site no bleeding no hematoma. 9:28:56 Post-op/insertion site Right Femoral artery dressed using a 4 x 4 and Tegaderm. 9:29:00 Post right femoral artery:stable, clean and dry 9:29:01 Post Procedure Pulses reassessed and unchanged 9:29:03 Post-procedure physical assessment completed. ASA score P 2 - A patient with mild systemic disease as per Anand Nino MD. 9:29:05 Post procedure rhythm: unchanged. 9:29:08 Estimated blood loss: 10 ml 9:29:09 Post procedure instruction explained to patient.Patient verbalizes understanding. 9:29:10 Patient needs reinforcement of post procedure teaching. 9:29:36 Procedure type changed to Cath procedure, Diagnostic procedure, LHC, Coronaries only, Sedation Charges, Moderate Sedation up to 15 minutes, PCI procedure, Coronary Stent, Coronary Stent Initial 9::42 Procedure Complication : No complications 9:29:46 See physician's report for complete and final results. 9:29:56 EXOSEAL 6Fr (EX600) opened to sterile field. 9:30:17 Procedure and supply charges have been captured, reviewed, submitted and are correct. 9:33:26 Vital chart was stopped 9:33:28 Report given to Pre/Post Procedure Room. 9:33:32 Patient transfered to Pre/Post Procedure Room with Stretcher. 9:33:35 Procedure ended. 9:33:35 Full Disclosure recording stopped 9:33:44 End room use (Document Last) Intervention Summary Intervention Notes Time ActionType Lesion and Equipment Action# Pressure Duration Attributes Used 9:21:50 Discard INTEGRITY RX Stent 3.0 x 15 stent ([id number]) 9:25:17 Discard INTEGRITY RX Stent 3.0 x 15 stent ([id number]) 9:27:09 Place stent Mid RCA INTEGRITY RX 1 13 00:05 3.0 x 15 stent ([id number]) Device Usage Item Name Manufacture Quantity Catalog Number Hospital Part Current Minimal Lot# / Charge Number Stock Stock Serial# Code ACIST Syringe Acist 1 31938 665484 398139 089962 20 (10145) Medical Systems JobOn Bag Decanter Microtek 1 2001S 138178 04506 978532 5 (2001S) Medical Inc. Medline Cath Cardinal 1 [id number] 119810 61931 211424 5 Pack Health ([id number]) DIAGNOSTIC WIRE St [place] 1 838128 705591 481762 139327 30 .035 260cm J wire (224896) ACIST Hand Acist 1 37862 177590 846262 331812 5 Control (16400) Medical Systems Inc ACIST Manifold Acist 1 08559 650407 942266 895883 5 (45674) Medical Systems Inc DIAGNOSTIC Cardinal 1 GU1726 015146 54412 534970 30 Multipack 5Fr Health catheter set (MA3909) Tegaderm 4 x 4 3M 1 1626W 445875 972087 851897 5 (1626W) SHEATH Prelude Merit 1 WQR-5W-68-035 239999 376455 575777 5 5Fr 0.035 Medical (XUW-7A-68-035) MULTIPACK Cardinal 1 800064 5 Pigtail 5 Fr Health catheter MULTIPACK JL Cardinal 1 174760 5 4.0 5Fr Health catheter MULTIPACK 3DRC Cardinal 1 384833 5 5Fr catheter Health SHEATH Prelude Merit 1 MQH-9D-51-35 990677 0852028 773432 5 6Fr 0.035 Medical (CGH-2C-51-035) INFLATOR Merit Merit 1 XH8253 625516 838379 152263 15 [facility] (IM0439) CHOICE PT Extra [place] 3 [id number] 252151 429885 315686 5 Support 182cm Scientific wire ([id number]) GUIDE 6FR AR Medtronic 1 [id number] 137778 63986 224213 1 1.0 catheter ([id number]) INTEGRITY RX Medtronic 1 [id number] 197204 265083 735158 5 [id number] 3.0 x 15 stent ([id number]) GUIDE 6FR 3DRC Medtronic 1 [id number] 802548 035149 823045 1 catheter ([id number]) EXOSEAL 6Fr Cardinal 1 EX600 714443 349477 125460 10 (EX600) Health Signature Audit [place] Stage Time Signature Unsigned Intra-Procedure 05/10/2018 Tracey 9:34:29 AM Counts RT(R) Signatures Monitor : Tracey Signature : Counts RT Date : Time : [place] [address] [place] [address]
--- NOTE | ~2018-05-10 | OP ---
PATIENT NAME: MADDISON ABDI SR MEDICAL RECORD: [id number] :37 LOCATION:D.CAT ADMISSION DATE: SURGEON: ELSI BRUCE MD DATE OF OPERATION: 05/10/2018 DATE OF SERVICE: 05/10/2018 PROCEDURES: 1. PTCA stent RCA. 2. Left heart catheterization. 3. Selective coronary angiography. 4. Left ventriculogram. INDICATION: Angina and coronary artery disease. PROCEDURE IN DETAIL: After informed consent was obtained and after a detailed description of risks, benefits as well as alternative therapies, the patient elected to proceed with angiogram and angioplasty. The right femoral area was prepped and draped in normal sterile fashion. Right femoral artery was cannulated via modified Seldinger technique with placement of 6-Turkmen sheath. All catheters exchanged through this sheath. FINDINGS: The left ventriculogram was performed in standard 30-degree GRIFFITHS view, reveals good cardiac wall motion throughout all segments. Overall ejection fraction estimated 60%. SELECTIVE CORONARY ANGIOGRAPHY: 1. Left main is with no significant angiographic disease. 2. Left anterior descending has previously placed stents, these are widely patent with no significant restenosis. No disease elsewise throughout the LAD or its branches. 3. The left circumflex has mild irregularities, but no flow-limiting stenosis. 4. The right coronary has previously placed stents, these are widely patent; however, there is a new 80% stenosis in the mid vessel after the previously placed stents proximally. PTCA STENT OF THE RCA: The stent used was a 3.0 x 15 mm Integrity. Result was 0% residual stenosis. OVERALL IMPRESSION: Successful percutaneous transluminal coronary angioplasty stent of the right coronary artery going from 80% initial stenosis to 0% residual. TRANSINT:[id number] Voice Confirmation ID: [id number] DOCUMENT ID: [id number] ELSI BRUCE MD at 0924 CC: [id number] DICTATION DATE: 05/10/18 0932 TIMBER MILL WORKER: 05/10/18 1007 [facility] CLI 05/10/[address] [address]
[~2018-05-10 07:34] MED LIST changes: +BETAPACE 80 MG80 MG PO; +CARAFATE1 G PO; +VALIUM5 MG PO; +ZOCOR40 MG PO
[2018-05-10 08:09] VITALS: BP 167/74; Ht 168.9 cm; Wt 102.3 kg
[2018-05-10 08:16] LABS: BASOPHILS 0.3 % (0-2); EOSINOPHILS 3.4 % (0-7); HEMATOCRIT 39.5 % (42.0-54.0); HEMOGLOBIN 13.3 g/dL (13.5-17.5); IMMATURE GRANULOCYTES 0.1 % (0-5); LYMPHOCYTES 16.1 % (15-50); MCH 29.6 pg (26.0-34.0); MCHC 33.7 g/dL (31.0-37.0); MCV 87.8 fL (80.0-100.0); MEAN PLATELET VOLUME 10.1 fL (7.4-10.4); NEUTROPHILS 69.1 % (40-80); PLATELET COUNT 131 10x3/uL (130-400); RDW 14.1 % (11.5-14.5); WBC 7.3 10x3/uL (4.8-10.8)
[2018-05-10 08:26] LABS: ANION GAP 11.7 mmol/L (8-16); CALCIUM 8.8 mg/dL (8.5-10.1); CARBON DIOXIDE 27.5 mmol/L (21.0-32.0); CREATININE - SERUM 1.1 mg/dL (0.6-1.3); POTASSIUM - SERUM 4.2 mmol/L (3.5-5.1)
== END | disposition home or self-care (01) ==
LOC: D.CATH 07:34
PROVIDERS: Internal Medicine Interventional Cardiology
DX: I25.110 Atherosclerotic heart disease of native coronary artery with unstable angina pectoris (principal)
CPT/HCPCS: 93458; C9600

== ENCOUNTER → 2018-09-27 08:33 | Outpatient (CLI) | payer MEDICARE, OTHER ==
[2018-05-10 08:09] VITALS: BMI 35.8
== END | disposition home or self-care (01) ==
LOC: D.RAD 08:33
PROVIDERS: ATTEND Family Medicine
DX: R10.13 Epigastric pain (principal)

== ENCOUNTER → 2019-02-28 14:23 | Outpatient (CLI) | payer MEDICARE, OTHER ==
[2018-05-10 08:09] VITALS: BMI 35.8
== END | disposition home or self-care (01) ==
LOC: D.US 14:23
PROVIDERS: ATTEND Family Medicine
DX: R22.1 Localized swelling, mass and lump, neck (principal)

== ENCOUNTER → 2019-08-01 08:43 | Outpatient (CLI) | payer MEDICARE, OTHER ==
[2018-05-10 08:09] VITALS: BMI 35.8
--- NOTE | 2019-08-04 11:13 | ST ---
PATIENT:MADDISON ABDI MEDICAL RECORD: [id number] SEX: M LOCATION:[facility] ORDER #: ADMISSION DATE: 08/01/19 AGE OF PATIENT: 83 REFERRING PHYSICIAN: INTERPRETING PHYSICIAN: ELSI BRUCE MD DATE OF SERVICE: 08/01/2019 INDICATION: Angina, coronary artery disease, hypertension, and hyperlipidemia. He was exercised on standard Lexiscan protocol with 33 mCi of sestamibi injected at peak stress, 11 mCi used previously for rest images. FINDINGS: Gated SPECT reveals a decreased ejection fraction of 47%. SPECT imaging Cardiolite was used as myocardial perfusion agent. There is reversibility inferiorly and laterally which includes basal, mid, apical, and inferior segments, the apex itself as well as the lateral segments, apical lateral, mid lateral, and basal lateral segments. The degree of reversibility is moderate. The amount of myocardium involved is moderate to large. OVERALL IMPRESSION: This is an intermediate high risk nuclear stress test, large amount of myocardium at risk with reversible ischemia inferiorly and laterally suggestive of hemodynamically significant coronary artery disease and possibly multivessel disease. TRANSINT:[id number] Voice Confirmation ID: [id number] DOCUMENT ID: [id number] ELSI BRUCE MD at 1113 CC: [id number] DICTATION DATE: 08/01/19 1252 VENEER SLICING MACHINE OPERATOR: 08/01/19 191 [facility]P CLI 08/01/19 [facility] [address] [place] [address]
== END | disposition home or self-care (01) ==
LOC: D.HCCARDIO 08:43
PROVIDERS: ATTEND Internal Medicine Interventional Cardiology
DX: I25.119 Atherosclerotic heart disease of native coronary artery with unspecified angina pectoris (principal)

== ENCOUNTER 2019-08-18 08:19 | Outpatient (CLI) | payer MEDICARE, OTHER ==
[~2019-08-18] VITALS: Ht 167.6 cm; Wt 102.3 kg
--- NOTE | ~2019-08-18 | OP ---
PATIENT NAME: MADDISON ABDI SR MEDICAL RECORD: [id number] :37 LOCATION:D.CAT ADMISSION DATE: SURGEON: ELSI BRUCE MD DATE OF OPERATION: 08/18/2019 PROCEDURES: 1. PTCA stent RCA. 2. PTCA stent ramus intermedius. 3. IFR RCA. 4. IFR ramus intermedius. 5. Left heart catheterization. 6. Selective coronary angiography. INDICATION: Angina and coronary artery disease. DESCRIPTION OF PROCEDURE: After informed consent was obtained and after a detailed explanation of risks, benefits as well as alternative therapies, the patient elected to proceed with angiogram and angioplasty. The right femoral area was prepped and draped in normal sterile fashion. Right femoral artery was cannulated via modified Seldinger technique with placement of 6-Ukrainian sheath. All catheters exchanged through this sheath. FINDINGS: Left ventriculogram was not performed secondary to inability to cross the aortic valve. SELECTIVE CORONARY ANGIOGRAPHY: 1. Left main has no significant angiographic disease. 2. Left anterior descending has previously placed stents that are widely patent with no significant restenosis. No disease elsewise throughout the LAD or its branches. 3. Left circumflex has a ramus intermedius with 75% stenosis and IFR was abnormal. 4. The right coronary has previously placed stents, these are widely patent; however, there is a 75% stenosis distally and IFR was abnormal. PTCA STENT OF THE RCA: The stent used was a 2.5 x 8 mm Integrity. Result was 0% residual stenosis. PTCA STENT OF THE RAMUS INTERMEDIUS: The stent used was a 2.25 x 18 mm Integrity. Result was 0% residual stenosis. OVERALL IMPRESSION: Successful PTCA stent of the RCA and left circumflex, ramus intermedius, both going from 75% initial stenosis with abnormal IFR to 0% residual. TRANSINT:[id number] Voice Confirmation ID: [id number] DOCUMENT ID: [id number] OPERATIVE REPORT [id number] MADDISON ABDI ELSI HERCULES MD CC: [id number] DICTATION DATE: 08/18/19 1058 LEAD MILITARY ANALYST: 08/18/19 1614 DEP CLI 08/18/19 [place] [address]
--- NOTE | ~2019-08-18 | HEMODYNAMI ---
PATIENT:MADDISON ABDI SR MEDICAL RECORD: [id number] : 37 LOCATION:DSTEVE ADMISSION DATE: 08/18/19 Generatedon:08/18/201911:00 Patient name: MADDISON ABDI Patient #: [id number] SSN: [id number] : 1935 Date of study: 08/18/2019 Page: Of Hemodynamic Procedure Report Patient Data Patient Demographics Procedure consent was obtained First Name: MADDISON Gender: Male Last Name: JIN Suffix: [facility] Initial: F : 1935 Patient #: [id number] Age: 83 year(s) Race: SSN: [id number] Additional ID: [id number] Contact details Address: [facility] [address] State: [place] City: [place] Zip code: [address] Past Medical History Performed procedures and imaging results Date Procedure Procedure Results Comments 08/01/2019 Stress testing Positive->Intermediate with SPECT MPI risk Allergies: No known allergies Admission Admission Data Admission Date: 08/18/2019 Admission Time: 8:19 Procedure Procedure Types Cath Procedure Diagnostic Procedure LHC LH w/Coronaries FFR/IVUS FFR Initial FFR Additional Sedation Charges Moderate Sedation up to 15 minutes PCI Procedure Coronary Stent Coronary Stent Initial Coronary Stent Initial x2 Hemochron ACT Test Procedure Description Procedure Date Procedure Date: 08/18/2019 Procedure Start Time: 10:30 Procedure End Time: 10:55 Procedure Staff Name Function Anand Nino MD Performing Physician Hillary Marmolejo RT Monitor Kyle Billings RN Nurse Laurita Palmer RT Scrub Indication Angina Pulmonary hypertension Dyspnea Procedure Data Cath Procedure Fluoroscopy Diagnostic fluoroscopy Total fluoroscopy Time: 7.4 time: 7.4 min min Diagnostic fluoroscopy Total fluoroscopy dose: dose: 1344 mGy 1344 mGy Contrast Material Contrast Material Type Amount (ml) Isovue 370 98 Entry Location Entry Primary Successful Side Size Upsize Upsize Entry Closure Succes sful Closure Location (Fr) 1 (Fr) 2 (Fr) Remarks Device Remarks Femoral Right 5 Fr 6 Fr Exoseal artery Short Estimated blood loss: 10 ml Diagnostic catheters Device Type Used For End Catheter Placement MULTIPACK Pigtail 5 Fr Procedure catheter MULTIPACK JL 4.0 5Fr Procedure catheter MULTIPACK 3DRC 5Fr Procedure catheter Procedure Complications No complications Procedure Medications Medication Administration Route Dosage 0.9% NaCl I.V. 100 ml/hr Oxygen etCO2 Nasal cannula 2 l/min Heparin Flush Bag added to field 2 bags (1000units/500ml NS) Lidocaine 2% added to field 20 Versed I.V. 1 mg Fentanyl I.V. 50 mcg Versed I.V. 1 mg Lopressor I.V. 10 mg Heparin Bolus I.V. 4000 units Integrilin (Bolus I.V. 9 ml 2mg/ml) Integrilin (Bolus wasted 1 ml 2mg/ml) Plavix P.O. 600 mg Hemodynamics Rest Heart Rate: 126 (bpm) Snapshots Pre Cath Intra NCS Post Cath Vital Signs Time Heart Resp SPO2 etCO2 NIBP (mmHg) Rhythm Pain Sedation Rate (ipm) (%) (mmHg) Status Level (bpm) 10:18:05 125 19 96 34.4 124/92(111) A-Fib 0 (11) 10(A) , No pain 10:22:09 125 17 98 0 119/95(105) A-Fib 0 (11) 10(A) , No pain 10:26:12 123 15 98 0 116/91(102) A-Fib 0 (11) 10(A) , No pain 10:30:16 123 10 97 35.2 118/88(112) A-Fib 0 (11) 10(A) , No pain 10:34:20 110 13 96 37.4 118/87(101) A-Fib 0 (11) 9(A) , No pain 10:38:21 119 14 94 36.7 131/101(112) A-Fib 0 (11) 9(A) , No pain 10:42:31 117 13 88 0 106/84(96) A-Fib 0 (11) 9(A) , No pain 10:46:29 117 13 96 35.1 124/97(110) A-Fib 0 (11) 9(A) , No pain 10:50:37 120 14 96 33.6 104/76(89) A-Fib 0 (11) 9(A) , No pain 10:54:34 122 12 96 28.2 118/92(107) A-Fib 0 (11) 9(A) , No pain Medications Time Medication Route Dose Verified Delivered Reason Notes Effectiveness by by 10:18:39 0.9% NaCl I.V. 100 Kyle Kyle Per physician ml/hr Manuelito Billings RN RN 10:18:48 Oxygen etCO2 2 Kyle Kyle for low 02 sats Nasal l/min Manuelito Billings cannula RN RN 10:18:58 Heparin Flush added 2 Kyle Kyle used for Bag to bags Manuelito Billings procedure (1000units/500ml field RN RN NS) 10:19:09 Lidocaine 2% added 20ml Kyle Kyle for local to vial Manuelito Billings anesthetic field RN RN 10:29:41 Versed I.V. 1 mg Kyle Kyle for sedation Manuelito Billings RN RN 10:29:49 Fentanyl I.V. 50 Kyle Kyle for sedation mcg Manuelito Billings RN RN 10:31:25 Versed I.V. 1 mg Kyle Kyle for sedation Manuelito Billings RN RN 10:33:51 Lopressor I.V. 10 mg Kyle Kyle for arrhythmia Manuelito Billings RN RN 10:46:01 Heparin Bolus I.V. 4000 Kyle Kyle for units Manuelito Billings anticoagulation RN RN 10:46:16 Integrilin I.V. 9 ml Kyle Kyle for (Bolus 2mg/ml) Manuelito Billings antiplatelet RN RN therapy 10:46:26 Integrilin wasted 1 ml Kyle Kyle to sharp's (Bolus 2mg/ml) Manuelito Billings RN RN 10:54:17 Plavix P.O. 600 Kyle Kyle for mg Manuelito Billings antiplatelet RN RN therapy Procedure Log Time Note 10:02:46 Indication : Angina 10:02:52 Indication : Pulmonary hypertension 10:02:59 Indication : Dyspnea 10:03:03 Diagnostic Cath Status : Elective 10:03:10 Procedure Status Elective Heart Cath (OP). 10:03:14 Time tracking: Regular hours (M-F 7:00 - 5:00) 10:03:18 Plan of Care:Hemodynamics will remain stable., Cardiac rhythm will remain stable., Comfort level will be maintained., Respiratory function will remain adequate., Patient/ family verbilizes understanding of procedure., Procedure tolerated without complication., Recovers from procedure without complications.. 10:03:26 ACC Patient presents with Stable Angina CCS Anginal Class 2--Slight limitation of ordinary activity. 10:03:59 Stress Test: yes; abnormal inferior and lateral 10:04:02 Alarms reviewed by R. N. 10:04:03 Sharps counted by scrub and verified by R.N. 10:04:21 Informed consent obtained and on chart 10:04:47 Laurita Palmer RT(R) sent for patient. Start room use. 10:07:54 Patient received from Pre/Post Procedure Room to CCL 2 Alert and oriented. Tansferred to table in Supine position. 10:07:55 Warm blankets applied, and patti hugger turned on for patient comfort. 10:07:56 Correct patient and procedure confirmed by team. 10:07:56 ECG and BP/O2 sat monitors applied to patient. 10:08:11 Pre-procedure instructions explained to patient. 10:08:12 Pre-op teaching completed and patient verbalized understanding. 10:08:13 Family in waiting room. 10:08:15 Patient NPO since Midnight. 10:08:26 Patient allergic to No known allergies 10:08:38 Is the patient allergic to Iodine/contrast media? No. 10:08:39 Was the patient premedicated? Yes 10:15:37 Is patient on blood thinner?No 10:15:39 Patient diabetic? No. 10:15:41 If diabetic: On Metformin? N/A 10:15:45 ----Pre-sedation anethsthesia assessment.---- 10:15:49 Previous problem with sedation/anesthesia? No ? 10:15:50 Snore? Yes 10:15:52 Sleep apnea? Yes 10:15:53 Deviated septum? No 10:15:54 Opens mouth fully? Yes 10:15:56 Sticks out tongue? Yes 10:15:58 Airway obstruction? No ? 10:16:00 Dentures? No ? 10:16:05 Pre procedure: right dorsailis pedis pulse Doppler 10:16:11 Patient pain scale 0/10 ?. 10:16:16 IV patent on arrival in left hand with 0.9% NaCl at [facility]. 10:16:24 Right groin area was prepped with chlora-prep and draped in sterile fashion 10:16:28 Use device set Femoral Dx 10:16:30 ACIST Syringe (36751) opened to sterile field. 10:16:31 Bag Decanter (2002S) opened to sterile field. 10:16:31 Medline Cath Pack ([id number]) opened to sterile field. 10:16:32 ACIST Hand Control (66559) opened to sterile field. 10:16:33 ACIST Manifold (77100) opened to sterile field. 10:16:36 DIAGNOSTIC Multipack 5Fr catheter set ([id number]) opened to sterile field. 10:16:39 SHEATH 5FR Henley (SXZ737) opened to sterile field. 10:16:40 EMERALD Guide Wire (077-973) opened to sterile field. 10:17:08 Vital chart was started 10:17:09 Full Disclosure recording started 10:17:23 Lab results completed and on chart. 10:17:37 Rhythm: sinus tachycardia 10:17:47 Baseline sample Acquired. 10:18:39 0.9% NaCl 100 ml/hr I.V. was administered by Kyle Billings RN; Per physician; Verbal order read back and verified. 10:18:48 Oxygen 2 l/min etCO2 Nasal cannula was administered by Kyle Billings RN; for low 02 sats; Verbal order read back and verified. 10:18:58 Heparin Flush Bag (1000units/500ml NS) 2 bags added to field was administered by Kyle Billings RN; used for procedure; Verbal order read back and verified. 10:19:09 Lidocaine 2% 20ml vial added to field was administered by Kyle Billings RN; for local anesthetic; Verbal order read back and verified. 10:28:25 --------ALL STOP TIME OUT------ 10:28:25 Final Timeout: patient, procedure, and site verified with staff and physician. All members of the team are in agreement. 10:28:27 Right groin site verified by team. 10:28:33 Fire Safety Assessment: A--An alcohol-based skin anteseptic being used preoperatively., C--Open oxygen or nitrous oxide is being used., D--An ESU, laser, or fiber-optic light is being used. 10:28:36 Physical assessment completed. ASA score P 2 - A patient with mild systemic disease as per Anand Nino MD. 10::41 Sedation plan: IV Moderate Sedation Medication:Versed, Fentanyl 10::44 Procedure started. 10::41 Versed 1 mg I.V. was administered by Kyle Billings RN; for sedation; Verbal order read back and verified. 10:29:49 Fentanyl 50 mcg I.V. was administered by Kyle Billings RN; for sedation; Verbal order read back and verified. 10:30:07 Local anesthetic to right femoral artery with Lidocaine 2% by Anand Nino MD.INITIAL ACCESS ONLY 10:30:17 A MULTIPACK Pigtail 5 Fr catheter was advanced over the wire and used for Procedure. 10:31:12 2) 60-89 Mildly reduced kidney function, and other findings (as for stage 1) point to kidney disease. 10:31:14 Maximum allowable contrast dose (3.7 X eGFR X 0.75)189 ml. 10:31:20 A 5 Fr sheath was inserted into the Right Femoral artery 10:31:25 Versed 1 mg I.V. was administered by Kyle Billings RN; for sedation; Verbal order read back and verified. 10:31:26 Injector settings: Ml/sec: 5, Volume: 15, 10:31:28 LV gram done using GRIFFITHS 10:33:05 UNABLE TO CANNULATE FOR LV. 10:33:13 Catheter removed. 10:33:22 Risk of Mortality: 0.3 10:33:24 Risk of blood transfusion: 0.1 10:33:27 Risk of AIMEE: 1.4 10:33:35 A MULTIPACK JL 4.0 5Fr catheter was advanced over the wire and used for Procedure. 10:33:51 Lopressor 10 mg I.V. was administered by Kyle Billings RN; for arrhythmia; Verbal order read back and verified. 10:33:53 LCA angiography performed. 10:34:27 Catheter removed. 10:34:34 A MULTIPACK 3DRC 5Fr catheter was advanced over the wire and used for Procedure. 10:35:10 RCA angiography performed. 10:35:21 Catheter removed. 10:35:22 Proceeding to intervention. 10:35:28 Use device set [facility] PCI 10:35:32 INFLATOR Merit BasixCompak (IF7712) opened to sterile field. 10:35:41 SHEATH 6FR Henley (ICO235) opened to sterile field. 10:36:02 [place] Verrata Plus pressure wire (43347P) opened to sterile field. 10:36:29 Sheath upsized to a 6 Fr Short. 10:38:32 GUIDE 6FR HS II catheter (LA6HSI) opened to sterile field. 10:38:49 6 Fr HS 2 guide catheter was inserted over the wire 10:38:55 FFR/IFR wire advanced. 10:38:56 Wire advanced across lesion. 10:42:11 mCirc lesion measured at .83 with IFR 10:44:40 Place stent Inflation Number: 1 A INTEGRITY RX 2.25 x 18 stent ([id number]) was prepped and advanced across the Ramus . The stent was deployed at 13 IVANIA for 0:00 (min:sec) . 10:45:01 Pre PCI Site: [place] Ramus has 75% stenosis. 10:45:10 Stent catheter was removed intact over wire. 10:45:11 Guide catheter removed. 10:45:12 Wire removed. 10:45:33 GUIDE 6FR XBLAD 3.5 catheter ([id number]) opened to sterile field. 10:45:41 6 Fr XBLAD 3.5 guide catheter was inserted over the wire 10:46:01 Heparin Bolus 4000 units I.V. was administered by Kyle Billings RN; for anticoagulation; Verbal order read back and verified. 10:46:16 Integrilin (Bolus 2mg/ml) 9 ml I.V. was administered by Kyle Billings RN; for antiplatelet therapy; Verbal order read back and verified. 10:46:26 Integrilin (Bolus 2mg/ml) 1 ml wasted was administered by Kyle Billings RN; to sharp's; Verbal order read back and verified. 10:46:29 FFR/IFR wire advanced. 10:46:30 Wire advanced across lesion. 10:47:39 dRCA lesion measured at .87 with IFR 10:48:48 Inflation number: 1 The stent balloon was then re-inflated across the Dist RCA to 17 IVANIA for 0:00 (min:sec) . 10:49:07 Stent catheter was removed intact over wire. 10:50:22 Place stent Inflation Number: 2 A INTEGRITY RX 2.5 x 08 stent ([id number]) was prepped and advanced across the Dist RCA . The stent was deployed at 11 IVANIA for 0:00 (min:sec) . 10:51:27 EXOSEAL 6Fr (EX600) opened to sterile field. 10:51:48 Sheath removed intact; hemostasis achieved with Exoseal to the Right Femoral artery. 10:51:50 Procedure ended.(Physican Out) 10:52:42 Fluoroscopy time 07.40 minutes. 10::45 Fluoroscopy dose: 1344 mGy 10:52:45 Flurop Dose total: 1344 10:52:50 Dose Area Product 92522 mGy/cm. 10:52:53 Contrast amount:Isovue 370 98ml. 10:52:55 Maximum allowable dose exceeded? No. 10:52:56 Sharps counted by scrub and verified by R.N. 10:53:00 Post-op/insertion site Right Femoral artery dressed using a 4 x 4 and Tegaderm. 10:53:05 Post right femoral artery:stable, soft, clean and dry 10:53:07 Post Procedure Pulses reassessed and unchanged 10:53:12 Post procedure: right dorsailis pedis pulse Doppler. 10:53:14 Post-procedure physical assessment completed. ASA score P 2 - A patient with mild systemic disease as per Anand Nino MD. 10:53:17 Post procedure rhythm: unchanged. 10:53:20 Estimated blood loss: 10 ml 10:53:21 Post procedure instruction explained to patient.Patient verbalizes understanding. 10:53:23 Patient needs reinforcement of post procedure teaching. 10:53:48 Procedure type changed to Cath procedure, Diagnostic procedure, [facility], [facility] w/Coronaries, FFR/IVUS, FFR Initial, FFR Additional, Sedation Charges, Moderate Sedation up to 15 minutes, PCI procedure, Coronary Stent, Coronary Stent Initial, Coronary Stent Initial x2, Hemochron ACT Test 10:53:58 ACT drawn and resulted at 324 seconds. (normal therapeutic range 180-240 seconds). 10:54:17 Plavix 600 mg P.O. was administered by Kyle Billings RN; for antiplatelet therapy; Verbal order read back and verified. 10:54:21 Procedure Complication : No complications 10:54:26 [facility] Findings: MVD- PCI performed (see procedure note) 10:54:28 Operative report dictated upon procedure completion. 10:54:29 See physician's report for complete and final results. 10:54:31 Report given to Pre/Post Procedure Room. 10:55:18 Vital chart was stopped 10:55:21 Procedure and supply charges have been captured, reviewed, submitted and are correct. 10:55:32 Patient transfered to Pre/Post Procedure Room with Stretcher. 10:55:36 Procedure ended. 10:55:36 Full Disclosure recording stopped 10:58:36 ACC-PCI Only Patient was given prescriptions, or instructed by Anand Nino MD to start/continue the following medications upon discharge: Plavix 10:59:07 End room use (Document Last) 11:00:00 End room use (Document Last) Intervention Summary Intervention Notes Time ActionType Lesion and Equipment Action# Pressure Duration Attributes Used 10:44:40 Place stent Ramus INTEGRITY RX 1 13 00:00 2.25 x 18 stent ([id number]) 10:48:48 Reinflate Dist RCA INTEGRITY RX 1 17 00:00 stent 2.25 x 18 balloon stent ([id number]) 10:50:22 Place stent Dist RCA INTEGRITY RX 2 11 00:00 2.5 x 08 stent ([id number]) Device Usage Item Name Manufacture Quantity Catalog Hospital Part Current Mini mal Lot# / Number Charge Number Stock Stock Serial# Code ACIST Acist 1 89699 842112 584836 798454 20 Syringe Medical (24405) Systems Inc Bag Decanter Microtek 1 2001S 470055 31168 990296 5 (2001S) Medical Inc. Medline Cath Medline 1 [id number] 797272 70316 859673 5 Pack ([id number]) ACIST Hand Acist 1 77395 681028 285417 257270 5 Control Medical (86178) Systems Inc ACIST Acist 1 43149 940181 028507 291696 5 Manifold Medical (45026) Systems Inc DIAGNOSTIC Cardinal 1 YS5553 800386 76286 399940 30 Multipack Health 5Fr catheter set (JN9624) SHEATH 5FR Terumo 1 UDA196 327705 393595 473323 5 Henley (IKL296) EMERALD Cardinal 1 502-455 457930 872744 301229 5 Guide Wire Health (502-436) MULTIPACK Cardinal 1 497122 5 Pigtail 5 Fr Health catheter MULTIPACK JL Cardinal 1 321285 5 4.0 5Fr Health catheter MULTIPACK Cardinal 1 443525 5 3DRC 5Fr Health catheter INFLATOR Merit 1 VQ7577 242555 293901 212288 15 [facility] Medical BasixCompak (WK1338) SHEATH 6FR Terumo 1 WLN460 228312 388400 998711 40 Henley (QDY850) [place] 1 67867T 507154 104673432 710197 5 Verrata Plus pressure wire (15227S) GUIDE 6FR HS Medtronic 1 LA6HSI 104467 22323 630448 1 I catheter (LA6HSI) INTEGRITY RX Medtronic 1 [id number] 635239 218160 418689 5 [id number] 2.25 x 18 stent ([id number]) GUIDE 6FR Cardinal 1 [id number] 442271 835899 869641 10 XBLAD 3.5 Health catheter (51854245) INTEGRITY RX Medtronic 1 [id number] 063905 812455 216901 5 [id number] 2.5 x 08 stent ([id number]) EXOSEAL 6Fr Cardinal 1 EX600 081753 985028 983707 10 (EX600) Health Signature Audit Chambers Stage Time Signature Unsigned Intra-Procedure 08/18/2019 Hillary Marmolejo 11:00:00 AM RT(R) Intra-Procedure 08/18/2019 Kyle 11:00:25 AM Manuelito REYNA Intra-Procedure 08/18/2019 Anand Nino 11:00:39 AM Signatures Performing Physician : Signature : Anand Nino MD Date : Time : Monitor : Hillary Marmolejo Signature : RT Date : Time : Nurse : Kyle Billings Signature : RN Date : Time : [address] [place] [address]
--- NOTE | ~2019-08-18 | EC ---
PATIENT:MADDISON ABDI SR DATE OF SERVICE: 08/18/19 SEX: M MEDICAL RECORD: [id number] DATE OF : 39 LOCATION:D.CAT AGE OF PATIENT: 83 ADMISSION DATE: 08/18/19 REFERRING PHYSICIAN: INTERPRETING PHYSICIAN: ELSI NINO MD ECHOCARDIOGRAM REPORT ECHO CHARGES 4 ECHO COMPLETE Date: 08/18/19 CLINICAL DIAGNOSIS: ECHOCARDIOGRAPHIC MEASUREMENTS (adult normal given) AC root (d.<3.7cm) 2.7 cm LV Septum d (<1.2 cm> 1.6 cm Valve Excursion 1.0 cm LV Septum (systole) 1.9 cm Left Atria (s.<4.0cm> 5.0 cm LVPW d(<1.2cm) 1.1 cm RV (d.<2.3cm) 3.5 cm LVPW (sytole) 1.5 cm LV diastole(<5.6CM) 5.5 cm MV E-F(>70mm/sec) cm LV systole 4.9 cm LVOT Diameter 1.9 cm MV exc.(>10mm) cm Est.ejection fraction (50-75%) % DOPPLER: LVIT cm/sec A 132 cm/sec E cm/sec LA cm/sec RVSP 24.1 mmHg LVOT 58 cm/sec AOP1/2T m/s Asc. Ao 199 cm/sec RVOT 70 cm/sec RA cm/sec PA 89 cm/sec AV Gradient Peak 15.9 mmHg AV Mean 9.7 mmHg AV Area 0.8 cm MV Gradient Peak 7.4 mmHg MV Mean 3.2 mmHg MV Area cm COMMENTS: City Superintendent: Td MOSER Patient Intake Representative: 1 Dr. Nino TAPE# PACS Pericardial Effusion N DATE OF SERVICE: 08/18/2019 Echocardiogram FINDINGS: 1. Left ventricular chamber size is within normal limits. Left ventricular systolic function is mildly depressed at 40%. 2. Left atrium is enlarged at 5.0 cm. Right atrium and right ventricular chamber sizes are as well mildly dilated. 3. Valvular structures: Aortic valve demonstrates [id number] calcific ECHOCARDIOGRAM REPORT [id number] MADDISON ABDI SR aortic stenosis, valve area calculates to 0.8 cm-squared with a gradient of 16 mm across the valve. The remaining valvular structures have normal structure and motion. 4. Doppler interrogation elsewise reveals only trace mitral regurgitation, no other valvular insufficiency or stenosis. Pulmonary artery systolic pressure is normal estimated at 24 mmHg. 5. No evidence of pericardial effusion or left ventricular thrombus. TRANSINT:[id number] Voice Confirmation ID: [id number] DOCUMENT ID: [id number] ELSI NINO MD CC: [id number] DICTATION DATE: 08/18/19 1648 RADIO MECHANIC HELPER: 08/18/193 DEP CLI 08/18/19 [place] [id number] [place] [id number]
[2019-08-18] MEDS ORDERED: CARAFATE1 G PO (08:54)
[2019-08-18] MEDS ORDERED: VALIUM5 MG PO (08:55)
[2019-08-18] MEDS ORDERED: KLOR-CON M2020 MEQ PO (08:55)
[2019-08-18] MEDS ORDERED: MULTI-DAY VITAM1 TAB PO (08:56)
[2019-08-18 09:25] VITALS: BP 135/97; Ht 167.6 cm; Wt 102.3 kg
[2019-08-18 09:42] LABS: HEMATOCRIT 43.8 % (42.0-54.0); HEMOGLOBIN 14.7 g/dL (13.5-17.5); MCHC 33.6 g/dL (31.0-37.0); MCV 89.4 fL (80.0-100.0); MEAN PLATELET VOLUME 10.4 fL (7.4-10.4); PLATELET COUNT 178 10x3/uL (130-400); RDW 14.3 % (11.5-14.5); WBC 6.7 10x3/uL (4.8-10.8)
[2019-08-18 10:29] LABS: ANION GAP 11.5 mmol/L (8-16); CALCIUM 8.7 mg/dL (8.5-10.1); CARBON DIOXIDE 27.5 mmol/L (21.0-32.0); CREATININE - SERUM 1.1 mg/dL (0.6-1.3); LDL-HDL RATIO 1.6 ratio (1.5-3.5)
--- NOTE | 2019-08-18 11:15 | NUR ---
REC'D TO ROOM 9 FROM BIOCHEMISTRY SPECIALIST VIA STRETCHER. PT DROWSY. MONITORS ESTAB. CM - ST 122. RR 15, POX 97% UNLAB. R GROIN SITE C/D/I, SOFT, NO S/S OF HEMATOMA. PEDAL PULSES EASILY PALP. PT INSTRUCTED ON KEEPING LEG STRAIGHT AND POC.
[2019-08-18] MEDS ORDERED: PLAVIX75 MG PO (11:16)
--- NOTE | 2019-08-18 11:31 | NUR ---
RIDING COACH AT BS FOR ECHO PER MD ORDER.
[2019-08-18 11:36] LABS: ANISOCYTOSIS OCC; EOSINOPHILS 2 % (0-7); LYMPHOCYTES 24 % (15-50); MONOCYTES 10 % (2-11); NEUTROPHILS 63 % (40-80); PLATELET ESTIMATE NORMAL
--- NOTE | 2019-08-18 11:45 | NUR ---
ECHO IN PROCESS. PT AWAKENS EASILY, R GROIN SITE C/D/I. PEDAL PULSE EASILY PALP.
--- NOTE | 2019-08-18 11:50 | NUR ---
DR. BRUCE IN TO SEE PT, HR 122, B/P - 142/105. D/C DISCUSSED, NEW ORDER FOR ONE TIME MEDS REC'D.
--- NOTE | 2019-08-18 12:14 | NUR ---
PO MEDS GIVEN PER MD ORDER. NO DIFFICULYT SWALLOWING. AT BS. UPDATE GIVEN AND QUESTIONS ANSWERED. R GROIN SITE C/D/I.
--- NOTE | 2019-08-18 12:31 | NUR ---
PT RESTING QUIETLY NO SIGN OF DISTRESS. R GROIN SITE C/D/I, SOFT, NO SIGN OF HEMATOMA OR BLEEDING. B/P 127/96, HR 123. C/L IN REACH.
--- NOTE | 2019-08-18 13:00 | NUR ---
R GROIN SITE C/D/I. PEDAL PULSE PALP. VSS. C/L IN REACH.
--- NOTE | 2019-08-18 13:31 | NUR ---
R GROIN SITE SOFT, DSG C/D/I. PULSE PALP. PT TAKING SIPS OF WATER AND SPRITE, NO N/V. CM - AFLUTTER RATE 124. B/P 134/101. PT DENIES NEEDS. C/L IN REACH.
--- NOTE | 2019-08-18 14:00 | NUR ---
DR. BRUCE NOTIFIED OF HR STILL REG AT 123. B/P 112/86. NO NEW ORDERS. FOLLOW-UP APPT SCHEDULED WITH OFFICE FOR THIS SUNDAY.
--- NOTE | 2019-08-18 14:30 | NUR ---
R GROIN SITE SOFT, NO S/S OF HEMATOMA. HOB UP AND SANDWICH TRAY PROVIDED. C/L IN REACH.
--- NOTE | 2019-08-18 15:08 | NUR ---
AT BS. PIV D/C'D INTACT, DSG APPLIED. ALL D/C INSTRUCTIONS AND TEACHING COMPLETE. NEW PRESCRIPTION AND UPDATED MED LIST WITH PT. PT VOIDED 200ML CLEAR, YELLOW URINE. PT ASSISTING WITH GETTING DRESSED.
== END 2019-08-18 15:15 | disposition home or self-care (01) ==
LOC: D.CATH 08:19
PROVIDERS: ATTEND Internal Medicine Interventional Cardiology
DX: I25.119 Atherosclerotic heart disease of native coronary artery with unspecified angina pectoris (principal); R07.9 Chest pain, unspecified; E78.5 Hyperlipidemia, unspecified; I10 Essential (primary) hypertension; R06.02 Shortness of breath; R06.09 Other forms of dyspnea; I48.0 Paroxysmal atrial fibrillation

== ENCOUNTER → 2019-08-25 09:37 | Outpatient (CLI) | payer MEDICARE, OTHER ==
[2019-08-18 09:25] VITALS: BMI 36.4
--- NOTE | 2019-08-26 11:25 | EC ---
PATIENT:MADDISON ABDI SR DATE OF SERVICE: 08/25/19 SEX: M MEDICAL RECORD: [id number] DATE OF : 39 LOCATION:[facility] AGE OF PATIENT: 83 ADMISSION DATE: 08/25/19 REFERRING PHYSICIAN: INTERPRETING PHYSICIAN: ELSI NINO MD ECHOCARDIOGRAM REPORT ECHO CHARGES 4 ECHO COMPLETE Date: 08/25/19 CLINICAL DIAGNOSIS: ATRIAL FIB ECHOCARDIOGRAPHIC MEASUREMENTS (adult normal given) AC root (d.<3.7cm) 2.9 cm LV Septum d (<1.2 cm> 1.3 cm Valve Excursion 1.6 cm LV Septum (systole) 1.6 cm Left Atria (s.<4.0cm> 3.9 cm LVPW d(<1.2cm) 1.5 cm RV (d.<2.3cm) 4.4 cm LVPW (sytole) 2.0 cm LV diastole(<5.6CM) 4.6 cm MV E-F(>70mm/sec) cm LV systole 3.0 cm LVOT Diameter 1.8 cm MV exc.(>10mm) 1.2 cm Est.ejection fraction (50-75%) % DOPPLER: LVIT cm/sec A cm/sec E 125.0 cm/sec LA cm/sec RVSP 17 mmHg LVOT 57 cm/sec AOP1/2T m/s Asc. Ao 69 cm/sec RVOT 61 cm/sec RA cm/sec PA 89 cm/sec AV Gradient Peak 1.89 mmHg AV Mean 0.85 mmHg AV Area 02.5 cm MV Gradient Peak 9.54 mmHg MV Mean 4.04 mmHg MV Area cm COMMENTS: Skin Care Consultant: Ludin MCADAMS Roller Man: 1 Dr. Nino TAPE# PACS Pericardial Effusion N DATE OF SERVICE: FINDINGS: 1. Left ventricular chamber size is within normal limits. Left ventricular systolic function is normal. Overall ejection fraction estimated at 55%. 2. Left atrium is within normal limits at 3.9 cm. Right atrium and right ventricular chamber sizes are moderate to severely dilated. 3. Valvular structures have normal structure and motion. 4. Doppler interrogation reveals no significant valvular insufficiency or stenosis. ECHOCARDIOGRAM REPORT [id number] MADDISON ABDI SR 5. No evidence of pericardial effusion or left ventricular thrombus. 6. The patient is in atrial fibrillation during the study. TRANSINT:[id number] Voice Confirmation ID: [id number] DOCUMENT ID: [id number] ELSI NINO MD at 1125 CC: [id number] DICTATION DATE: 08/25/191709 MEDIA DEVELOPER: 08/26/19 0139 DEP CLI 08/25/19 [place] [id number] [place] [id number]
== END | disposition home or self-care (01) ==
LOC: D.HCCECHO 09:37
PROVIDERS: ATTEND Internal Medicine Interventional Cardiology
DX: I48.0 Paroxysmal atrial fibrillation (principal)

== ENCOUNTER 2019-10-07 11:41 | Observation (INO) | payer MEDICARE, OTHER ==
[~2019-10-07] VITALS: Ht 167.6 cm; Wt 103.6 kg
--- NOTE | ~2019-10-07 | OP ---
PATIENT NAME: MADDISON ABDI SR MEDICAL RECORD: [id number] :37 LOCATION:D.M2 D.2117 ADMISSION DATE:10/07/19 SURGEON: RUDI TALLEY MD DATE OF OPERATION: 10/07/2019 PREOPERATIVE DIAGNOSES: 1. Sick sinus syndrome with pauses. 2. Coronary artery disease. 3. Atrial fibrillation. POSTOPERATIVE DIAGNOSES: 1. Sick sinus syndrome with pauses. 2. Coronary artery disease. 3. Atrial fibrillation. PROCEDURE: 1. Left subclavian vein dual lead pacemaker placement. 2. Fluoroscopic interpretation. SURGEON: Rudi Talley MD CO-SURGEON: Trevon Carroll MD REPORT OF PROCEDURE: The patient's left chest was prepped and draped in sterile fashion. A 20 mL of 1% lidocaine with epinephrine was infused into the surrounding tissues. A transverse incision was made on the left superior lateral chest and a subcutaneous pouch was made over the pectoral fascia. [place] were used to cannulate the left subclavian vein times 2 and guidewires were advanced with ease. Fluoro was used to note that the wires were in good position in the venous system. Dilator trocar devices were placed over the wires and the wires and dilators were removed. The leads were advanced through the trocars and they rested in good position in the superior vena cava. At this point, Dr. Carroll positioned the leads appropriately in atrium and ventricle. Once the leads were noted to be in good position and functioning appropriately, then they were sutured into place with 2-0 TiCron. The leads were affixed to the pacemaker, which was placed into the subcutaneous pouch and sutured to the pectoral fascia with a single interrupted 2-0 TiCron. We irrigated out the wound bed with antibiotic solution. The subcutaneous tissues were reapproximated with interrupted 3-0 Vicryl and the skin was closed with running subcutaneous 5-0 Monocryl. COMPLICATIONS: None. CONDITION: Stable. ANESTHESIA: Local MAC. BLOOD LOSS: Minimal. TRANSINT:[id number] Voice Confirmation ID: [id number] DOCUMENT ID: [id number] OPERATIVE REPORT [id number] MADDISON ABDI SR RUDI TALLEY MD CC: [id number] DICTATION DATE: 10/07/19 144 [employer] DRILL OPERATOR: 10/07/192128 ADM IN [place] [address] [place] [address]
--- NOTE | ~2019-10-07 | HEMODYNAMI ---
PATIENT:MADDISON ABDI SR MEDICAL RECORD: [id number] : 37 LOCATION:DAdolphCAT ADMISSION DATE: 10/07/19 Generatedon:10/07/201914:42 Patient name: MADDISON ABDI Patient #: [id number] SSN: [id number] : 1935 Date of study: 10/07/2019 Page: Of Hemodynamic Procedure Report Patient Data Patient Demographics Procedure consent was obtained First Name: MADDISON Gender: Male Last Name: JIN Suffix: [facility] Initial: Toño : 1935 Patient #: [id number] Age: 83 year(s) Race: SSN: [id number] Additional ID: [id number] Contact details Address: [address] State: [place] City: [place] Zip code: [address] Past Medical History Allergies: No known allergies Admission Admission Data Admission Date: 10/07/2019 Admission Time: 11:41 Arrival Date: 10/07/2019 Arrival Time: 13:30 Admit Source: Other Insurance Payor: Medicare [facility] #: [id number] Height (in.): 65.75 BSA: 2.11 (m2) Height (cm.): 167 BMI: 36.93 (kg/m2) Weight (lbs.): 227.08 Weight (kg.): 103 Lab Results Lab Result Date: 10/07/2019 Lab Result Time: 0:00 Biochemistry Name Units Result Min Max BUN mg/dl 22 --(----)-* 7 18 Creatinine mg/dl 1.4 --(----)*- 0.6 1.3 CBC Name Units Result Min Max Hemoglobin g/dl 13.4 -*(----)-- 13.5 17.5 Procedure Procedure Types Cath Procedure Diagnostic Procedure PPM/ICD PPM Dual Implant Sedation Charges Moderate Sedation up to 30 minutes Procedure Description Procedure Date Procedure Date: 10/07/2019 Procedure Start Time: 14:15 Procedure End Time: 14:39 Procedure Staff Name Function Trevon Gutierrez MD Performing Physician Vasyl Gallo MD Assisting physician Laurita Palmer RT Monitor Hillary Marmolejo RT Scrub Elizabeth Cavanaugh RN Nurse Procedure Data Cath Procedure Fluoroscopy Diagnostic fluoroscopy Total fluoroscopy Time: 1.4 time: 1.4 min min Diagnostic fluoroscopy Total fluoroscopy dose: dose: 82.95 mGy 82.95 mGy Contrast Material Contrast Material Type Amount (ml) Isovue 300 0 Estimated blood loss: 5 ml Procedure Complications No complications Procedure Medications Medication Administration Route Dosage 0.9% NaCl I.V. 100 ml/hr Oxygen etCO2 Nasal cannula 2 l/min Lidocaine 1% added to field 20 Ancef Irrigation Topical 1 g (1gm/500ml NS) Ancef (1Gm/50ml NS) I.V.P.B 1 g Versed I.V. 2 mg Fentanyl I.V. 50 mcg Fentanyl I.V. 50 mcg Fentanyl I.V. 50 mcg Hemodynamics Rest BSA: 2.11 (m2) HGB: 13.4 (g/dl) O2 Consumption: Estimated: 243.75 (ml/min) O2 Co nsumption indexed: Estimated:115.52 (ml/min/m) Heart Rate: 74 (bpm) Snapshots Pre Cath Intra NCS Post Cath Vital Signs Time Heart Resp SPO2 etCO2 NIBP (mmHg) Rhythm Pain Sedation Rate (ipm) (%) (mmHg) Status Level (bpm) 13:46:50 78 12 96 34 134/82(110) A-Fib 0 (11) 10(A) , No pain 13:51:04 64 13 98 34 130/79(109) A-Fib 0 (11) 10(A) , No pain 13:55:16 68 12 96 13.6 134/80(119) A-Fib 0 (11) 10(A) , No pain 13:59:28 68 12 97 34.7 131/87(114) A-Fib 0 (11) 10(A) , No pain 14:03:39 69 13 98 28.7 131/82(110) A-Fib 0 (11) 10(A) , No pain 14:07:51 69 14 98 32 135/81(113) A-Fib 0 (11) 10(A) , No pain 14:12:48 79 12 97 27.9 132/77(113) A-Fib 0 (11) 10(A) , No pain 14:17:00 70 16 96 43.8 136/85(108) A-Fib 0 (11) 10(A) , No pain 14:21:15 75 14 95 37 134/84(105) A-Fib 0 (11) 9(A) , No pain 14:25:26 84 11 95 39.2 132/85(119) A-Fib 0 (11) 10(A) , No pain 14:29:40 67 14 96 40.8 133/77(115) A-Fib 0 (11) 9(A) , No pain 14:33:52 72 14 96 24.1 115/85(111) A-Fib 0 (11) 9(A) , No pain 14:38:51 69 13 97 43 141/79(108) A-Fib 0 (11) 10(A) , No pain Medications Time Medication Route Dose Verified Delivered Reason Notes Effecti veness by by 13:50:26 0.9% NaCl I.V. 100 Trevon Elizabeth used for ml/hr Matt Mao procedure RN 13:50:32 Oxygen etCO2 2 Trevon Elizabeth used for Nasal l/min MattJason Cavanaugh procedure cannula RN 13:50:39 Lidocaine added 20ml Vasyl Negroian for local 1% to vial Gerri Gallo MD anesthetic field 13:50:48 Ancef Topical 1 g Restorationist Restorationist used for Irrigation Gerri Gallo MD procedure (1gm/500ml NS) 13:50:56 Ancef I.V.P.B 1 g Restorationist Elizabeth used for (1Gm/50ml Gerri Cavanaugh procedure NS) RN 14:13:03 Fentanyl I.V. 50 Trevon Majoryla for [facility] Jason Cavanaugh sedation RN 14:13:48 Versed I.V. 2 mg Trevon Majoryla for St Jason Cavanaugh sedation RN 14:19:23 Fentanyl I.V. 50 Trevon Majoryla for [facility] Jason Cavanaugh sedation RN 14:25:13 Fentanyl I.V. 50 Trevon Majoryla for [facility] Jason Cavanaugh sedation body team member Log Time Note 13:39:47 Diagnostic Cath Status : Elective 13:41:32 Procedure Status PPM/ Gen Change/ Lead Revision/ Temp. 13:41:34 Hillary Marmolejo RT(R) sent for patient. Start room use. 13:41:35 Time tracking: Regular hours (M-F 7:00 - 5:00) 13:41:42 Plan of Care:Hemodynamics will remain stable., Cardiac rhythm will remain stable., Comfort level will be maintained., Respiratory function will remain adequate., Patient/ family verbilizes understanding of procedure., Procedure tolerated without complication., Recovers from procedure without complications.. 13:41:54 Patient received from Pre/Post Procedure Room to [facility] 3 On ventilator. Tansferred to table in Supine position. 13:42:01 Warm blankets applied, and patti hugger turned on for patient comfort. 13:42:02 Signed procedure consent form obtained from patient. 13:42:03 Correct patient and procedure confirmed by team. 13:42:04 ECG and BP/O2 sat monitors applied to patient. 13:44:41 Arrival Date: 10/07/2019 1:30:00 PM 13:45:04 Admit Source: Other 13:45:09 Insurance Payor : Medicare 13:45:22 Patient Height : 65.75 inches 13:45:25 Patient Weight : 227.08 lbs 13:45:41 Lab Result : BUN 22 mg/dl 13:45:41 Lab Result : Hemoglobin 13.4 g/dl 13:45:41 Lab Result : Creatinine 1.4 mg/dl 13:45:45 Vital chart was started 13:50:02 Baseline sample Acquired. 13:50:09 Rhythm: sinus tachycardia 13:50:26 0.9% NaCl 100 ml/hr I.V. was administered by Elizabeth Cavanaugh RN; used for procedure; Verbal order read back and verified. 13:50:32 Oxygen 2 l/min etCO2 Nasal cannula was administered by Elizabeth Cavanaugh RN; used for procedure; Verbal order read back and verified. 13:50:39 Lidocaine 1% 20ml vial added to field was administered by Vasyl Gallo MD; for local anesthetic; Verbal order read back and verified. 13:50:48 Ancef Irrigation (1gm/500ml NS) 1 g Topical was administered by Vasyl Gallo MD; used for procedure; Verbal order read back and verified. 13:50:54 Full Disclosure recording started 13:50:56 Ancef (1Gm/50ml NS) 1 g I.V.P.B was administered by Elizabeth Cavanaugh RN; used for procedure; Verbal order read back and verified. 13:50:58 H&P Date Dictated: 10/07/2019 Within 30 days and on chart., H&P Addendum completed by physician on day of procedure. (MUST COMPLETE FOR ALL OUTPATIENTS). 13:51:00 Pre-procedure instructions explained to patient. 13:51:00 Pre-op teaching completed and patient verbalized understanding. 13:51:03 Family in patients room. 13:51:04 Patient NPO since Midnight. 13:51:08 Is the patient allergic to Iodine/contrast media? No. 13:51:12 Was the patient premedicated? No 13:51:14 Is patient on blood thinner?No 13:51:16 Patient diabetic? No. 13:51:19 Previous problem with sedation/anesthesia? No ? 13:51:20 Snore? Yes 13:51:21 Sleep apnea? Yes 13:51:23 Deviated septum? No 13:51:23 Opens mouth fully? Yes 13:51:25 Sticks out tongue? Yes 13:51:42 Airway obstruction? No ? 13:51:48 Dentures? No ? 13:51:52 Pre procedure: right dorsailis pedis pulse 2+ Normal; easily identifiable; not easily obliterated 13:51:55 Pre procedure: left dorsailis pedis pulse 2+ Normal; easily identifiable; not easily obliterated 13:51:57 Patient pain scale 0/10 ?. 13:52:08 IV patent on arrival in left forearm with 0.9% NaCl at [facility]. 13:52:16 Lab results completed and on chart. 13:52:22 Left chest area was prepped with chlora-prep and draped in sterile fashion 13:52:25 Alarms reviewed by R. N. 13:52:25 Sharps counted by scrub and verified by R.N. 13:54:[address] Medtronic MARIA L [address]T DR Generator [id number] opened to sterile field. 13:57:34 Medtronic 4574-45 PPM Lead opened to sterile field. 13:58:59 Medtronic 4074-52 PPM Lead opened to sterile field. 14:04:07 Physician paged 14:12:38 Physician arrived 14:12:38 --------ALL STOP TIME OUT------ 14:12:38 Final Timeout: patient, procedure, and site verified with staff and physician. All members of the team are in agreement. 14:12:42 Left chest site verified by team. 14:12:45 Fire Safety Assessment: A--An alcohol-based skin anteseptic being used preoperatively., C--Open oxygen or nitrous oxide is being used., D--An ESU, laser, or fiber-optic light is being used. 14:12:47 Physical assessment completed. ASA score P 2 - A patient with mild systemic disease as per Trevon Gutierrez MD. 14:12:52 Sedation plan: IV Moderate Sedation Medication:Versed, Fentanyl 14:13:03 Fentanyl 50 mcg I.V. was administered by Elizabeth Cavanaugh RN; for sedation; Verbal order read back and verified. 14:13:03 Use device set GERRI PPM 14:13:04 2-0 Ticron Multipack ([id number]) opened to sterile field. 14:13:04 3-0 Vicryl Single Pack [id number] opened to sterile field. 14:13:05 5-0 Monocryl PS2 [id number] opened to sterile field. 14:13:06 Cautery Tip Conductor Pullman opened to sterile field. 14:13:07 Cautery Pushbutton Pencil opened to sterile field. 14:13:08 Mepilex Dressing ([id number]) opened to sterile field. 14:13:10 Immobilizer Large opened to sterile field. 14:13:23 Medtronic environmental marketing representative Ricardo Toledo present for procedure. 14:13:26 Procedure started. 14:13:36 Pre sharps counted by scrub and verified by RN: Sutures: 7; Sponges: 5; Stick needles: 2; Skin needles: 2; Blade: 1; Cautery: 1 14:13:41 Grounding pad site Left thigh. 14:13:42 Grounding pad site free from injury. 14:13:48 Versed 2 mg I.V. was administered by Elizabeth Cavanaugh RN; for sedation; Verbal order read back and verified. 14:15:56 Lidocaine 1% was administered to left subclavicular area by Trevon Gutierrez MD . 14:16:03 Incision made to left subclavicular area. 14:19:23 Fentanyl 50 mcg I.V. was administered by Elizabeth Cavanaugh RN; for sedation; Verbal order read back and verified. 14:21:20 Generator pocket made/opened. 14:21:23 Left subclavian vein accessed with 7Fr Peel Away Sheath. 14:21:26 Left subclavian vein accessed with 7Fr Peel Away Sheath. 14:22:37 Ventricular lead inserted and advanced. 14:22:40 Atrial lead inserted and advanced. 14:24:51 Ventricular lead positioned. 14:25:13 Fentanyl 50 mcg I.V. was administered by Elizabeth Cavanaugh RN; for sedation; Verbal order read back and verified. 14:26:12 Atrial lead positioned. 14:26:14 Peel-a-way sheath was split and removed. 14:26:15 Peel-a-way sheath was split and removed. 14:27:46 PPM Dual was attached to lead(s) and inserted into pocket. 14:28:02 Ventricular lead attachment was completed with 2-0 ticron. 14:28:05 Ventricular lead attachment was completed with 2-0 ticron. 14:28:28 Generator was sutured in place with 2-0 ticron. 14:29:29 Device pocket was irrigated with Ancef. 14:29:35 Subcutaneous closure was completed with 3-0 vicryl plus. 14:30:51 Parameters-- Generator: Mode: DDDR. Lower Rate: 60bpm. Upper Rate: 120bpm. 14:31:21 Parameters--Ventricular P/R Wave: 14mV. Current: 0.1mA; Threshold: 0.2V; Impedence: 1118OHMS. 14:31:47 Parameters--Atrial P/R Wave: AFmV. Current: NAmA; Threshold: OLGA LIDIA; Impedence: 670OHMS. 14:36:24 Skin closure was completed with 5-0 monocryl. 14:36:29 Lt Chest incision was dressed with Mepilex dressing. 14:37:57 Procedure ended.(Physican Out) 14:38:07 Fluoroscopy time 01.40 minutes. 14:38:13 Fluoroscopy dose: 82.95 mGy 14:38:13 Flurop Dose total: 82.95 14:38:26 Dose Area Product 861.66 mGy/cm. 14:38:30 Contrast amount:Isovue 300 0ml. 14:38:33 Maximum allowable dose exceeded? No. 14:38:33 Sharps counted by scrub and verified by R.N. 14:38:34 Insertion/operative site no bleeding no hematoma. 14:38:45 Post left sublavian artery:stable 14:38:47 Post Procedure Pulses reassessed and unchanged 14:38:53 Post procedure rhythm: paced 14:38:58 Estimated blood loss: 5 ml 14:39:00 Post procedure instruction explained to patient.Patient verbalizes understanding. 14:39:01 Patient needs reinforcement of post procedure teaching. 14:39:19 Procedure type changed to Cath procedure, Diagnostic procedure, PPM/ICD, PPM Dual Implant, Sedation Charges, Moderate Sedation up to 30 minutes 14:39:21 Procedure and supply charges have been captured, reviewed, submitted and are correct. 14:39:25 Procedure Complication : No complications 14:39:28 Vital chart was stopped 14:39:33 Operative report dictated upon procedure completion. 14:39:34 See physician's report for complete and final results. 14:39:38 Report given to Med II. 14:39:40 Patient transfered to Med II with Stretcher. 14:39:48 Procedure ended. 14:39:48 Full Disclosure recording stopped 14:39:52 End room use (Document Last) 14:40:27 End room use (Document Last) 14:40:51 End room use (Document Last) Device Usage Item Name Manufacture Quantity Catalog Hospital Part Current Minima l Lot# / Number Charge Number Stock Stock Serial# Code Medtronic Medtronic 1 [id number] [address] [id number] MARIA L XT DR EXP Generator 02-23-2021 [id number] Medtronic Medtronic 1 4574-45 206842 [id number] [id number] 5 [id number] 4574-45 PPM EXP Lead 06-19-2021 Medtronic Medtronic 1 4074-52 208007 [id number] [id number] 5 [id number] 4074-52 PPM EXP Lead 06-24-2021 2-0 Ticron Ethicon 3 [id number] 864867 61480 858695 5 Multipack ([id number]) 3-0 Vicryl Ethicon 1 [id number] 807946 941109 085725 5 Single Pack [id number] 5-0 Monocryl Ethicon 1 Y495G 905177 089739 013997 5 PS2 Y495G Cautery Tip Microtek 1 [id number] 258015 363080 718077 5 Conductor [employer] Cautery Microtek 1 [id number] 142181 39415 447171 5 Pushbutton [employer] Pencil Mepilex Cardinal 1 123354 406116 558714 002372 5 Dressing Health (202599) Immobilizer Cardinal 1 [id number] 743323 319371 291085 5 [facility] Signature Audit Lamy Stage Time Signature Unsigned Intra-Procedure 10/07/2019 Laurita Palmer 2:40:27 PM RT(R) Intra-Procedure 10/07/2019 Elizabeth Cavanaugh 2:40:51 PM RN Intra-Procedure 10/07/2019 Trevon Talavera 2:42:37 PM Jason MCKOY [facility] [address] [place] [address]
[2019-10-07] MEDS ORDERED: MULTAQ400 MG PO (12:30)
[2019-10-07] MEDS ORDERED: XARELTO10 MG (12:31)
[2019-10-07] MEDS ORDERED: DILTIAZEM 24HR360 M4 PO (12:31)
[2019-10-07] MEDS ORDERED: LIPITOR40 MG PO (12:31)
[2019-10-07 12:45] VITALS: BP 127/72; BMI 36.8
[2019-10-07 13:03] LABS: ANION GAP 11.8 mmol/L (8-16); CARBON DIOXIDE 31.1 mmol/L (21.0-32.0); CREATININE - SERUM 1.4 mg/dL (0.6-1.3); POTASSIUM - SERUM 3.9 mmol/L (3.5-5.1)
[2019-10-07 13:07] LABS: HEMATOCRIT 40.2 % (42.0-54.0); HEMOGLOBIN 13.4 g/dL (13.5-17.5); MCH 29.6 pg (26.0-34.0); MCHC 33.3 g/dL (31.0-37.0); MCV 88.9 fL (80.0-100.0); MEAN PLATELET VOLUME 9.9 fL (7.4-10.4); RBC 4.52 10x6/uL (4.20-6.10); RDW 14.4 % (11.5-14.5); WBC 6.5 10x3/uL (4.8-10.8)
[2019-10-07 13:34] LABS: APTT 29.6 SECONDS (22.8-39.4); INR 1.15 (0.85-1.17); PROTIME 14.7 SECONDS (11.6-15.0)
[2019-10-07 15:24] VITALS: BP 120/72; Ht 167.6 cm; Wt 103.6 kg
--- NOTE | 2019-10-07 15:35 | NUR ---
TRANSFER FROM SQL SERVER ARCHITECT. VS WNL. LEFT CHEST DRSG CDI. LEFT ARM IN SLING. CALL LIGHT IN REACH. WILL CONT. PLAN OF CARE.
[2019-10-07 17:42] VITALS: BP 125/73
--- NOTE | 2019-10-07 19:31 | NUR ---
RECEIVED BEDSIDE REPORT. PATIENT IS ALERT AND ORIENTED, RESTING COMFORTABLY IN BED. RESPIRATIONS ARE EVEN AND UNLABORED. NO S/S OF DISTRESS. NO C/O PAIN. SCANT AMOUNT OF DRIED BLOOD NEAR PRESSURE DRESSING. PATIENT ASSISTED TO RESTROOM AT THIS TIME.
[2019-10-07 20:39] VITALS: BP 119/71
--- NOTE | 2019-10-07 22:00 | NUR ---
PATIENT'S PRESSURE DRESSING COVERING PACEMAKER INSERTION SITE SATURATED WITH BLOOD AND FALLING OFF. REMOVED DRESSING COMPLETELY. INCISION OOZING. APPLIED BETADINE TO INCISION. RECOVERED WITH MEPILEX. PRESSURE DRESSING AND SAND BAG APLLIED. VITALS STABLE. NO S/S OF DISTRESS.
--- NOTE | 2019-10-07 23:10 | NUR ---
PAGED DR. TALLEY REGARDING PATIENT PACEMAKER INSERTION SITE BLEEDING.
--- NOTE | 2019-10-07 23:40 | NUR ---
2ND PAGE PLACED TO DR. TALLEY.
--- NOTE | 2019-10-07 23:50 | NUR ---
RECEIVED CALL BACK FROM DR. TALLEY. ORDERS GIVEN TO CONTINUE TO REINFORCE DRESSING, SAND BAG AND COAGULATION LABS IN AM. DR. TALLEY WILL SEE PATIENT IN AM.
[2019-10-08 00:37] VITALS: BP 135/82
[2019-10-08 06:01] VITALS: BP 145/78
[2019-10-08 06:18] LABS: APTT 31.2 SECONDS (22.8-39.4); INR 1.16 (0.85-1.17); PROTIME 14.7 SECONDS (11.6-15.0)
--- NOTE | 2019-10-08 07:30 | NUR ---
BLEEDING TO PACEMAKER SITE CONTINUES. PRESSURE DRSG CHANGED AND DR. OLIVER NOTIFIED.
[2019-10-08 07:43] VITALS: BP 114/68
--- NOTE | 2019-10-08 08:00 | NUR ---
AT REPLACING PRESSURE DRSG. STATES HE WILL BE BACK THIS AFTERNOON TO RECHECK SITE FOR BLEEDING. WILL MONITOR.
--- NOTE | 2019-10-08 11:41 | OP ---
PATIENT NAME: ARBEN ABDI SR MEDICAL RECORD: [id number] :37 LOCATION:D.M2 D.2118 ADMISSION DATE:10/07/19 SURGEON: DILLON OLIVER MD DATE OF OPERATION: 10/07/2019 PROCEDURE: Lead portion of permanent pacemaker placement. INDICATION: Sick sinus syndrome with PAF and pauses. SURGEON: Vasyl Gallo MD DESCRIPTION OF PROCEDURE: After left subclavian vein was cannulated via modified Seldinger technique via Dr. Gallo. First under fluoroscopic guidance, I placed RV lead in RV apex without difficulty. After adequate R waves and thresholds were obtained, I then attached the right atrial lead in the right atrial appendage without difficulty. After adequate tributary waves and resistance was confirmed, leads were attached to the appropriate pole in the generator and pocket was closed via Dr. Gallo. IMPRESSION: Successful lead portion of permanent pacemaker placement on Arben Abdi. ESTIMATED BLOOD LOSS: Minimal. COMPLICATIONS: None. DISPOSITION: To the floor, stable. TRANSINT:[id number] Voice Confirmation ID: [id number] DOCUMENT ID: [id number] DILLON OLIVER MD at 1141 CC: [id number] DICTATION DATE: 10/07/19 1433 AUTOMATIC EMBROIDERY MACHINE TENDER: 10/07/19 2232 ADM IN [place] [id number] [place] [address]
[2019-10-08 12:01] VITALS: BP 110/60
--- NOTE | 2019-10-08 14:35 | NUR ---
SPOKE TO DR. HART. OK TO DC HOME. TO LEAVE PRESSURE DRSG ON FOR 48 HRS AND TO HOLD BLOOD THINNERS FOR 2 DAYS. IV AND TELEMETRY DCD. DC PLANS GIVEN. UNDERSTANDING VOICED. ESCORTED TO CAR BY W/C.
--- NOTE | 2019-10-09 07:53 | MORECARE ---
CASE MANAGEMENT DISCHARGE SUMMARY PATIENT: MADDISON ABDI SR UNIT: [id number] ADM DATE: 10/07/19 AGE: 83 : 37 SEX: M ROOM/BED: D.2118 AUTHOR: MELISSA PEREZ PHYSICIAN: REFERRING PHYSICIAN: DILLON OLIVER MD DATE OF SERVICE: 10/09/19 Discharge Plan Patient Name: [facility]ADDISON ABDI [facility] [facility] 1935 Planned Disposition: Home Anticipated Discharge Date: 10/08/19 Discharge Date: 10/08/2019 Expected LOS: 1 Initial Reviewer: [email or web address] Initial Review Date: 10/09/2019 Generated: 10/09/19 8:53 am Patient Name: MADDISON ABDI Page [id number] at 0753 All edits/amendments must be made on the electronic document DICTATION DATE: 10/09/19 0753 BAIT PACKER: JUNE 10/09/19 0753 RPT#: [id number] DC DATE:10/08/19 STATUS: DIS IN [facility] [address] [place] [address] END OF REPORT
== END 2019-10-08 14:38 | disposition home or self-care (01) ==
LOC: D.CATH 11:41 → D.M2 14:32 → OBSVTIME 14:32 → D.M2 14:32 → D.CATH 14:32 → D.M2 15:15
PROVIDERS: Surgery; ADMIT Internal Medicine Interventional Cardiology; ATTEND Internal Medicine Interventional Cardiology
DX: I49.5 Sick sinus syndrome (principal); I48.91 Unspecified atrial fibrillation; I25.10 Atherosclerotic heart disease of native coronary artery without angina pectoris

== ENCOUNTER 2019-11-05 12:14 | Outpatient (CLI) | payer MEDICARE, OTHER ==
[~2019-11-05] VITALS: Ht 167.6 cm; Wt 102.3 kg
--- NOTE | ~2019-11-05 | HEMODYNAMI ---
PATIENT:MADDISON ABDI SR MEDICAL RECORD: [id number] : 39 LOCATION:[facility] ADMISSION DATE: 11/05/19 Generatedon:11/05/201914:50 Patient name: MADDISON ABDI Patient #: [id number] SSN: [id number] : 1935 Date of study: 11/05/2019 Page: Of Hemodynamic Procedure Report Patient Data Patient Demographics Procedure consent was obtained First Name: MADDISON Gender: Male Last Name: JIN Suffix: [facility] Initial: Toño : 1935 Patient #: [id number] Age: 83 year(s) Race: SSN: [id number] Additional ID: [id number] Contact details Address: [address] [facility] [address] State: [place]: [place] Zip code: [address] Past Medical History Allergies: No known allergies Admission Admission Data Admission Date: 11/05/2019 Admission Time: 12:14 Height (in.): 66.5 BSA: 2.11 (m2) Height (cm.): 168.91 BMI: 35.77 (kg/m2) Weight (lbs.): 225 Weight (kg.): 102.06 Lab Results Lab Result Date: 11/05/2019 Lab Result Time: 0:00 Biochemistry Name Units Result Min Max BUN mg/dl 16 --(---*)-- 7 18 Creatinine mg/dl 1.3 --(---*)-- 0.6 1.3 eGFR ml/min 56 *-(----)-- 90 120 NONAFRICAN CBC Name Units Result Min Max Hematocrit % 38.4 *-(----)-- 42 54 Hemoglobin g/dl 12.2 *-(----)-- 13.5 17.5 Procedure Procedure Types Cath Procedure Diagnostic Procedure Cardioversion External WARREN Procedure Description Procedure Date Procedure Date: 11/05/2019 Procedure Start Time: 14:19 Procedure Staff Name Function Trevon Gutierrez MD Performing Physician Earlene Kenney RT Monitor Janeen Abel RN Nurse Mike Messina CRNA Additional personnel John [place] [employer]ender Procedure Data Cath Procedure Fluoroscopy Diagnostic fluoroscopy Total fluoroscopy Time: 0 time: 0 min min Diagnostic fluoroscopy Total fluoroscopy dose: 0 dose: 0 mGy mGy Estimated blood loss: 0 ml Procedure Complications No complications Hemodynamics Rest BSA: 2.11 (m2) HGB: 12.2 (g/dl) O2 Consumption: Estimated: 266.57 (ml/min) O2 Consumption indexed: Estimated:126.34 (ml/min/m) Heart Rate: 102 (bpm) Snapshots Pre Cath Intra NCS Post Cath Vital Signs Time Heart Resp SPO2 etCO2 NIBP (mmHg) Rhythm Pain Sedation Rate (ipm) (%) (mmHg) Status Level (bpm) 14:30:36 86 21 96 0 110/81(89) NSR 0 (11) 10(A) , No pain 14:34:44 79 25 98 20.8 Aborted NSR 0 (11) 10(A) , No pain 14:37:42 88 23 97 14.1 113/92(106) NSR 0 (11) 10(A) , No pain 14:41:54 96 18 97 22.3 121/92(112) NSR 0 (11) 10(A) , No pain 14:45:58 91 32 96 29.7 102/69(88) NSR 0 (11) 10(A) , No pain Procedure Log Time Note 14:19:46 Informed consent obtained and on chart 14:20:08 Janeen Abel RN sent for patient. Start room use. 14:22:25 Procedure Status Cardioversion, WARREN. 14:22:26 Time tracking: Regular hours (M-F 7:00 - 5:00) 14:22:30 Plan of Care:Hemodynamics will remain stable., Cardiac rhythm will remain stable., Comfort level will be maintained., Respiratory function will remain adequate., Patient/ family verbilizes understanding of procedure., Procedure tolerated without complication., Recovers from procedure without complications.. 14:22:37 H&P Date Dictated: 11/03/2019 Within 30 days and on chart., H&P Addendum completed by physician on day of procedure. (MUST COMPLETE FOR ALL OUTPATIENTS). 14:23:11 Patient allergic to No known allergies 14:23:53 Lab Result : BUN 16 mg/dl 14::53 Lab Result : Creatinine 1.3 mg/dl 14::53 Lab Result : eGFR NONAFRICAN 56 ml/min 14::53 Lab Result : Hematocrit 38.4 % 14::53 Lab Result : Hemoglobin 12.2 g/dl 14:25:24 Mike Messina CRNA present and monitoring patient for TIVA. 14:25:38 Patient Weight : 225 lbs 14::42 Patient Height : 66.5 inches 14::54 Patient arrived from Pre/Post Procedure Room to CCL 1. Patient remains on bed/stretcher for procedure. 14:29:27 Warm blankets applied, and patti hugger turned on for patient comfort. 14:29:28 Correct patient and procedure confirmed by team. 14:29:28 ECG and BP/O2 sat monitors applied to patient. 14:29:29 Vital chart was started 14:29:30 Baseline sample Acquired. 14:29:35 Rhythm: paced, atrial fibrillation 14:29:37 Full Disclosure recording started 14::37 Pre-procedure instructions explained to patient. 14:29:38 Pre-op teaching completed and patient verbalized understanding. 14:29:39 Family AVAILABLE WITH PHONE CALL. 14:29:51 Patient NPO since Midnight. 14:30:34 Is patient on blood thinner?Unknown- PT. UNSURE IF HE IS TAKING BLOOD THINNERS 14:30:51 Patient diabetic? No. 14:30:54 Previous problem with sedation/anesthesia? No ? 14:30:56 Snore? Yes 14:30:58 Sleep apnea? No 14:30:59 Deviated septum? No 14:30:59 Opens mouth fully? Yes 14:31:00 Sticks out tongue? Yes 14:31:01 Airway obstruction? No ? 14:31:03 Dentures? No ? 14:31:05 Patient pain scale 0/10 ?. 14:31:12 IV patent on arrival in left hand with 0.9% NaCl at [facility]. 14:31:13 Lab results completed and on chart. 14:31:16 Alarms reviewed by R. N. 14:31:16 Sharps counted by scrub and verified by R.N. 14:31:44 Quick Combo opened to sterile field. 14:31:51 Teacy Tre Medical Leader present for WARREN. 14:32:17 --------ALL STOP TIME OUT------ 14:32:18 Final Timeout: patient, procedure, and site verified with staff and physician. All members of the team are in agreement. 14:32:22 Physical assessment completed. ASA score P 2 - A patient with mild systemic disease as per Trevon Gutierrez MD. 14:32:27 Sedation plan: TIVA Medication:Propofol 14:34:02 WARREN 14:34:02 WARREN started. 14:42:07 WARREN completed. 14:42:10 ------Cardioversion------ 14:42:11 Quick combo pads placed on patients chest and back. 14:42:16 Defibrillator synced and charged to 200. Joules. 14:42:20 Shock delivered. 14:43:00 Patient cardioverted to sinus rhythm , paced. 14:43:05 Procedure ended.(Physican Out) 14:43:38 Fluoroscopy time 00.00 minutes. 14:43:39 Fluoroscopy dose: 0 mGy 14:43:39 Flurop Dose total: 0 14:43:44 Dose Area Product 0 mGy/cm. 14:43:52 Post-procedure physical assessment completed. ASA score P 2 - A patient with mild systemic disease as per Trevon Gutierrez MD. 14:44:02 Post procedure rhythm: sinus rhythm , paced 14:44:05 Estimated blood loss: 0 ml 14:44:07 Post procedure instruction explained to patient.Patient verbalizes understanding. 14:44:10 Patient needs reinforcement of post procedure teaching. 14:44:55 Procedure and supply charges have been captured, reviewed, submitted and are correct. 14:44:59 Procedure Complication : No complications 14:46:40 WARREN Findings: WARREN w/ cardioversion: no left atrial clot noted (proceed with cardioversion) 14:46:42 Operative report dictated upon procedure completion. 14:46:42 See physician's report for complete and final results. 14:46:44 Report given to Pre/Post Procedure Room. 14:46:47 Patient transfered to Pre/Post Procedure Room with Bed. 14:48:58 Vital chart was stopped 14:49:06 End room use (Document Last) 14:49:37 End room use (Document Last) 14:50:21 End room use (Document Last) Device Usage Item Manufacture Quantity Catalog Hospital Part Current Minimal Lot# / Name Number Charge Number Stock Stock [place] n[place]# Code Bizen 1 [id number] Combo Signature Audit [place] Stage Time Signature Unsigned Intra-Procedure 11/05/2019 Earlene Kenney 2:49:37 PM RT(R) Intra-Procedure 11/05/2019 Janeen 2:50:21 PM Page RN Intra-Procedure 11/05/2019 Trevon Talavera 2:50:38 PM Jason MCKOY [facility] [address] [place] [address]
[~2019-11-05 12:14] MED LIST changes: +DILTIAZEM 24HR360 M4 PO; +LIPITOR40 MG PO; +MULTAQ400 MG PO; +XARELTO10 MG
[2019-11-05 13:12] VITALS: BP 101/75; Ht 167.6 cm; Wt 102.3 kg
[2019-11-05 13:23] LABS: BASOPHILS 0.2 % (0-2); EOSINOPHILS 4.1 % (0-7); HEMATOCRIT 38.4 % (42.0-54.0); HEMOGLOBIN 12.2 g/dL (13.5-17.5); LYMPHOCYTES 24.3 % (15-50); MCH 28.2 pg (26.0-34.0); MCHC 31.8 g/dL (31.0-37.0); MCV 88.7 fL (80.0-100.0); MEAN PLATELET VOLUME 10.1 fL (7.4-10.4); MONOCYTES 10.9 % (2-11); NEUTROPHILS 60.5 % (40-80); PLATELET COUNT 136 10x3/uL (130-400); RBC 4.33 10x6/uL (4.20-6.10); RDW 14.2 % (11.5-14.5); WBC 5.1 10x3/uL (4.8-10.8)
[2019-11-05 13:32] LABS: ANION GAP 11.2 mmol/L (8-16); CALCIUM 8.5 mg/dL (8.5-10.1); CARBON DIOXIDE 25.9 mmol/L (21.0-32.0); CREATININE - SERUM 1.3 mg/dL (0.6-1.3); POTASSIUM - SERUM 4.1 mmol/L (3.5-5.1)
[2019-11-05 13:39] LABS: INR 1.07 (0.85-1.17); PROTIME 13.8 SECONDS (11.6-15.0)
--- NOTE | 2019-11-05 14:55 | NUR ---
PT ARRIVED BY STRETCHER. PLACED ON MONITORS. ASSESSMENT COMPLETED. VSS. CALL LIGHT WITHIN REACH.
--- NOTE | 2019-11-05 15:10 | NUR ---
PT RESTING COMFORTABLY. VSS. PT IN NSR. RATE 70. BP 109/68 NO NEEDS AT THIS TIME.
--- NOTE | 2019-11-05 15:40 | NUR ---
PT A-V PACED AT 70. VSS. NO NEEDS AT THIS TIME. CALL LIGHT WITHIN REACH. RESTING COMFORTABLY.
--- NOTE | 2019-11-05 15:52 | NUR ---
PIV D/C'D WITH CATH TIP INTACT. TOLERATED WELL. PT INSTRUCTED TO GET UP AND DRESSED AT THIS TIME. NO ASSISTANCE NEEDED.
--- NOTE | 2019-11-05 15:55 | NUR ---
DISCUSSED DISCHARGE INSTRUCTIONS WITH PT. HE VOICED UNDERSTANDING.
--- NOTE | 2019-11-05 16:00 | NUR ---
PT TAKEN DOWN TO VEHICLE BY WHEELCHAIR. NO S/S OF DISTRESS NOTED. ALL BELONGINGS AND PAPERWORK IN HAND. DISCUSSED DISCHARGE INSTRUCTIONS WITH PT'S . SHE VOICED UNDERSTANDING.
--- NOTE | 2019-11-07 08:58 | TEE ---
PATIENT:MADDISON ABDI MEDICAL RECORD: [id number] LOCATION:D.[facility] AGE OF PATIENT: 83 ADMISSION DATE: 11/05/19 SEX: M REFERRING PHYSICIAN: INTERPRETING PHYSICIAN: DILLON OLIVER MD TRANSESOPHAGEAL ECHOCARDIOGRAM Date: 11/05/19 WARREN CHARGE Y INDICATIONS: A-FIB/PRE-CARDIOVERSION R/O LA APPENDAGE CLOT PREMEDICATIONS: PATIENT'S RESPONSE PROCEDURE DOPPLER MEASUREMENTS: LVIT LA PA RA LVOT RVOT Asc. Ao AV Gradient Peak AV Mean AV Area MV Gradient Peak MV Mean MV Area INTERPRETATION: Doppler: 2-D: COLOR FLOW DOPPLER NORMAL SALINE STUDY: MISCELLANOUS: DIAGNOSIS: PLAN: Client Relations Representative:3 Dr. Carroll Computer Operations Technician: 1 MARCELA GOMEZ COMMENTS: DATE OF SERVICE: 11/05/2019 TRANSESOPHAGEAL NOTE General sedation via TIVA, transesophageal Omniplane probe was placed in the distal esophagus and proximal stomach. FINDINGS: Grossly LVH present. Difficult to fully assess focal wall motion from cardiac positioning, however, is present. Estimated EF 50% or better. TRANSESOPHAGEAL ECHOCARDIOGRAM REPORT [id number] MADDISON ABDI Aortic valve is tricuspid. It is sclerotic. Mild plus aortic insufficiency is noted as well. Left atrium is well visualized. Left atrial appendage is well visualized with good contractility. No evidence of thrombus. Mitral valve well visualized. Trace to mild MR. Right-sided chambers appear enlarged with mild TR. At the end of procedure, the probe was turned posteriorly and this shows mild atherosclerotic debris in the descending aorta. TRANSINT:[id number] Voice Confirmation ID: [id number] DOCUMENT ID: [id number] at 0858 CC: [id number] DICTATION DATE: 11/05/19 1451 LAUNDRY AID: 11/05/19 1715 DEP CLI 11/05/19 [address] [place] [address]
--- NOTE | 2019-11-07 08:58 | OP ---
PATIENT NAME: MADDISON ABDI SR MEDICAL RECORD: [id number] :37 LOCATION:D.CAT ADMISSION DATE: SURGEON: DILLON OLIVER MD DATE OF OPERATION: 11/05/2019 PROCEDURE: Cardioversion. SUMMARY OF PROCEDURE: After general sedation via TIVA via anesthesia, a single synchronized shock was successful in restoring atrial fibrillation to normal sinus rhythm. IMPRESSION: Successful cardioversion. COMPLICATIONS: No complications noted. Rhythm is confirmed via pacemaker interrogation as well. TRANSINT:[id number] Voice Confirmation ID: [id number] DOCUMENT ID: [id number] DILLON OLIVER MD at 0858 CC: [id number] DICTATION DATE: 11/05/19 1451 OPERATING ROOM TECHNOLOGIST: 11/05/19 1716 DEP CLI 11/05/19 [id number] [place] [address]
== END 2019-11-05 16:00 | disposition home or self-care (01) ==
LOC: D.CATH 12:14
PROVIDERS: ATTEND Internal Medicine Interventional Cardiology
DX: I48.91 Unspecified atrial fibrillation (principal)

== ENCOUNTER 2020-01-06 09:56 | Outpatient (CLI) | payer MEDICARE, OTHER ==
[~2020-01-06] VITALS: Ht 167.6 cm; Wt 104.2 kg
--- NOTE | ~2020-01-06 | HEMODYNAMI ---
PATIENT:MADDISON ABDI SR MEDICAL RECORD: [id number] : 39 LOCATION:D.CAT ADMISSION DATE: 01/06/20 Generatedon:01/06/202013:44 Patient name: MADDISON ABDI Patient #: [id number] SSN: [id number] : 1935 Date of study: 01/06/2020 Page: Of Hemodynamic Procedure Report Patient Data Patient Demographics Procedure consent was obtained First Name: MADDISON Gender: Male Last Name: JIN Suffix: [facility] Initial: F : 1935 Patient #: [id number] Age: 84 year(s) Race: SSN: [id number] Additional ID: [id number] Contact details Address: [facility] [address] State: [place] City: [place] Zip code: [address] Past Medical History Allergies Allergen Reaction Date Comments Reported Beta blockers 01/06/2020 Admission Admission Data Admission Date: 01/06/2020 Admission Time: 9:56 Arrival Date: 01/06/2020 Arrival Time: 0:00 Height (in.): 65.75 BSA: 2.11 (m2) Height (cm.): 167 BMI: 37.29 (kg/m2) Weight (lbs.): 229.28 Weight (kg.): 104 Procedure Procedure Types Cath Procedure Diagnostic Procedure Cardioversion External WARREN Procedure Description Procedure Date Procedure Date: 01/06/2020 Procedure Start Time: 13:25 Procedure End Time: 13:40 Procedure Staff Name Function Trevon Gutierrez MD Performing Physician Benjy Gonsalez MD Additional personnel Earlene Kenney RT Monitor Art Brennan RN Nurse Kalli Bustamante [employer] Procedure Data Cath Procedure Fluoroscopy Diagnostic fluoroscopy Total fluoroscopy Time: 0 time: 0 min min Diagnostic fluoroscopy Total fluoroscopy dose: 0 dose: 0 mGy mGy Estimated blood loss: 0 ml Procedure Complications No complications Hemodynamics Rest BSA: 2.11 (m2) O2 Consumption: Estimated: 248.3 (ml/min) O2 Consumption indexed: Estimated:117.68 (ml/min/m) Heart Rate: 80 (bpm) Snapshots Pre Cath Intra NCS Post Cath Vital Signs Time Heart Resp SPO2 etCO2 NIBP (mmHg) Rhythm Pain Sedation Rate (ipm) (%) (mmHg) Status Level (bpm) 13:22:35 80 20 97 15.5 141/77(131) NSR 0 (11) 10(A) , No pain 13:26:41 86 17 91 9.6 109/71(92) NSR 0 (11) 10(A) , No pain 13:30:43 94 16 97 17 126/89(102) NSR 0 (11) 10(A) , No pain 13:34:51 79 32 96 26 137/92(115) NSR 0 (11) 10(A) , No pain 13:39:01 78 16 96 17.7 134/85(114) NSR 0 (11) 10(A) , No pain Procedure Log Time Note 12:46:52 Informed consent obtained and on chart 12:47:31 H&P Date Dictated: 12/29/2019 Within 30 days and on chart., H&P Addendum completed by physician on day of procedure. (MUST COMPLETE FOR ALL OUTPATIENTS). 12:47:39 Patient allergic to Beta blockers 12:49:11 Patient Weight : 229.28 lbs 12:49:14 Patient Height : 65.75 inches 12:49:19 Arrival Date: 01/06/2020 12:00:00 AM 13:04:47 Procedure Status Cardioversion, WARREN. 13:04:48 Time tracking: Regular hours (M-F 7:00 - 5:00) 13:04:50 Plan of Care:Hemodynamics will remain stable., Cardiac rhythm will remain stable., Comfort level will be maintained., Respiratory function will remain adequate., Patient/ family verbilizes understanding of procedure., Procedure tolerated without complication., Recovers from procedure without complications.. 13:04:54 Earlene PIZARRO(R) sent for patient. Start room use. 13:13:54 Patient arrived from Pre/Post Procedure Room to [facility] 2. Patient remains on bed/stretcher for procedure. 13:13:54 Warm blankets applied, and patti hugger turned on for patient comfort. 13:13:55 Correct patient and procedure confirmed by team. 13:13:58 ECG and BP/O2 sat monitors applied to patient. 13:13:59 Full Disclosure recording started 13:14:00 Pre-procedure instructions explained to patient. 13:14:01 Pre-op teaching completed and patient verbalized understanding. 13:14:03 Family available with phone call 13:14:16 Patient NPO since Midnight. 13:14:19 Is patient on blood thinner?No 13:14:32 Patient diabetic? No. 13:14:34 Previous problem with sedation/anesthesia? No ? 13:14:35 Snore? Yes 13:14:36 Sleep apnea? Yes 13:14:37 Deviated septum? No 13:14:41 Opens mouth fully? Yes 13:14:42 Sticks out tongue? Yes 13:14:44 Airway obstruction? No ? 13:14:47 Dentures? No out 13:14:49 Benjy Gonsalez MD present and monitoring patient for TIVA. 13:14:56 IV patent on arrival in left hand with 0.9% NaCl at KVO. 13:15:05 Quick Combo opened to sterile field. 13:21:31 Vital chart was started 13:21:33 Baseline sample Acquired. 13:21:47 Rhythm: paced, atrial fibrillation 13:23:04 Alarms reviewed by Sachin Rosales 13:24:17 Lab results completed and on chart. 13:24:20 Stress Test: no; N/A ? 13:24:26 --------ALL STOP TIME OUT------ 13:24:26 Final Timeout: patient, procedure, and site verified with staff and physician. All members of the team are in agreement. 13:24:37 Fire Safety Assessment: C--Open oxygen or nitrous oxide is being used. 13:24:48 3a) 45-59 Moderately reduced kidney function. 13:24:52 Sedation plan: TIVA Medication:Propofol 13:25:17 Procedure started. 13:25:27 WARREN 13:25:31 Kalli Bustamante Venetian Blind Installer present for WARREN. 13:25:39 WARREN started. 13:32:50 [employer] ASA RIVAS PRESENT FOR CARDIOVERSION. 13:32:54 WARREN completed. 13:32:55 ------Cardioversion------ 13:33:20 Quick combo pads placed on patients chest and back. 13:33:38 Defibrillator synced and charged to 200 Joules. 13:33:48 Shock delivered. 13:34:02 Patient cardioverted to sinus rhythm , paced. 13:35:08 Procedure ended.(Physican Out) 13:37:09 Fluoroscopy time 00.00 minutes. 13:37:10 Fluoroscopy dose: 0 mGy 13:37:10 Flurop Dose total: 0 13:37:12 Sharps counted by scrub and verified by R.N. 13:37:13 Sharps counted by scrub and verified by R.N. 13:37:18 Post-procedure physical assessment completed. ASA score P 2 - A patient with mild systemic disease as per Trevon Gutierrez MD. 13:37:25 Post procedure rhythm: sinus rhythm , paced 13:37:30 Estimated blood loss: 0 ml 13:37:31 Post procedure instruction explained to patient.Patient verbalizes understanding. 13:37:31 Patient needs reinforcement of post procedure teaching. 13:37:55 Procedure and supply charges have been captured, reviewed, submitted and are correct. 13:37:58 Procedure Complication : No complications 13:38:06 WARREN Findings: other (see MD operative note) 13:38:08 Operative report dictated upon procedure completion. 13:38:08 See physician's report for complete and final results. 13:40:53 Report given to Pre/Post Procedure Room. 13:40:55 Patient transfered to Pre/Post Procedure Room with Bed. 13:40:58 Procedure ended. 13:40:58 Full Disclosure recording stopped 13:42:07 Vital chart was stopped 13:42:10 End room use (Document Last) 13:42:55 End room use (Document Last) 13:43:36 End room use (Document Last) Device Usage Item Manufacture Quantity Catalog Hospital Part Current Minimal Lot# / Name Number Charge Number Stock Gissel Latham al# Code Sunlot 1 [id number] Combo Signature Audit [place] Stage Time Signature Unsigned Intra-Procedure 01/06/2020 Earlene Kenney 1:42:55 PM RT(R) Intra-Procedure 01/06/2020 Art Brennan 1:43:36 PM RN Intra-Procedure 01/06/2020 Trevon Talavera 1:44:31 PM Jason MD Signatures Performing Physician : Signature : Trevon Gutierrez MD Date : Time : Monitor : Earlene Kenney Signature : RT Date : Time : Nurse : Art Brennan RN Signature : Date : Time : [place] [address] [place] [address]
[2020-01-06] MEDS ORDERED: DILTIAZEM 24HR120 M3 PO (10:41)
[2020-01-06] MEDS ORDERED: OMEPRAZOLE20 M1 PO (10:43)
[2020-01-06] MEDS ORDERED: AMIODARONE HCL200 MG PO (10:43)
[2020-01-06 10:51] VITALS: BP 127/74; Ht 167.6 cm; Wt 104.2 kg
[2020-01-06 11:26] LABS: ANION GAP 10.5 mmol/L (8-16); CALCIUM 8.6 mg/dL (8.5-10.1); CARBON DIOXIDE 28.2 mmol/L (21.0-32.0); CREATININE - SERUM 1.4 mg/dL (0.6-1.3); POTASSIUM - SERUM 3.7 mmol/L (3.5-5.1)
[2020-01-06 11:30] LABS: BASOPHILS 0.4 % (0-2); EOSINOPHILS 2.6 % (0-7); HEMATOCRIT 39.7 % (42.0-54.0); HEMOGLOBIN 13.1 g/dL (13.5-17.5); LYMPHOCYTES 21.1 % (15-50); MCH 28.8 pg (26.0-34.0); MCV 87.3 fL (80.0-100.0); MEAN PLATELET VOLUME 10.1 fL (7.4-10.4); MONOCYTES 10.4 % (2-11); NEUTROPHILS 65.5 % (40-80); RBC 4.55 10x6/uL (4.20-6.10); RDW 14.9 % (11.5-14.5); WBC 5.7 10x3/uL (4.8-10.8)
[2020-01-06 11:34] LABS: PLATELET COUNT 170 10x3/uL (130-400)
--- NOTE | 2020-01-06 13:50 | NUR ---
PT ARRIVED BY STRETCHER. PLACED ON MONITORS. ASSESSMENT COMPLETED. VSS AT THIS TIME. CALL LIGHT WITHIN REACH.
--- NOTE | 2020-01-06 14:05 | NUR ---
PT RESTING COMFORTABLY. VSS. HR STILL AV PACED. CALL LIGHT WITHIN REACH. NO NEEDS AT THIS TIME.
--- NOTE | 2020-01-06 14:35 | NUR ---
PT RESTING COMFORTABLY. VSS. HR STABLE. AV PACED AT THIS TIME. CALL LIGHT WITHIN REACH.
--- NOTE | 2020-01-06 14:55 | NUR ---
PIV D/C'D WITH CATH TIP INTACT. TOLERATED WELL. VSS. DISCUSSED DISCHARGE INSTRUCTIONS WITH PT. HE VOICED UNDERSTANDING. SPOKE WITH PT'S OVER THE TELEPHONE.
--- NOTE | 2020-01-06 15:00 | NUR ---
PT TOLERATING SIPS OF WATER. DENIES DIFFICULTY SWALLOWING. DOES NOT WANT FOOD AT THIS TIME. WILL WAIT UNTIL HE GETS HOME TO EAT.
--- NOTE | 2020-01-06 15:05 | NUR ---
PT VOIDED 150cc OF YELLOW URINE IN URINAL WITHOUT DIFFICULTY. PT TAKEN DOWN TO VEHICLE BY WHEELCHAIR. NO S/S OF DISTRESS NOTED. ALL BELONGINGS AND PAPERWORK IN HAND.
--- NOTE | 2020-01-07 09:31 | TEE ---
PATIENT:ARBEN OCASIO SR MEDICAL RECORD: [id number] LOCATION:[facility] AGE OF PATIENT: 84 ADMISSION DATE: 01/06/20 SEX: M REFERRING PHYSICIAN: INTERPRETING PHYSICIAN: DILLON OLIVER MD TRANSESOPHAGEAL ECHOCARDIOGRAM Date: 01/06/20 WARREN CHARGE Y INDICATIONS: AFIB PREMEDICATIONS: PATIENT'S RESPONSE PROCEDURE DOPPLER MEASUREMENTS: LVIT LA PA RA LVOT RVOT Asc. Ao AV Gradient Peak AV Mean AV Area MV Gradient Peak MV Mean MV Area INTERPRETATION: Doppler: 2-D: COLOR FLOW DOPPLER NORMAL SALINE STUDY: MISCELLANOUS: DIAGNOSIS: PLAN: Animator:3 Dr. Carroll Laboratory Clerk: Td MOSER COMMENTS: PACS DATE OF SERVICE: 01/06/2020 PROCEDURE: Transesophageal plus cardioversion DESCRIPTION OF PROCEDURE: After general sedation via TIVA via anesthesia, a transesophageal Omniplane probe was placed in the distal esophagus and proximal stomach. FINDINGS: LVH is present. Difficult to fully assess focal wall motion from TRANSESOPHAGEAL ECHOCARDIOGRAM REPORT [id number] ARBEN OCASIO views present; however, the short axis appears to be normal wall motion, EF normal at 55%. Aortic valve is calcified with adequate excursion of the leaflets itself. Mild AI. Left atrium appears grossly normal. The left atrial appendage is well visualized with good contractility. No evidence of thrombus. Mitral valve has mitral annular calcification, difficult to fully assess excursion. Right-sided chambers appear grossly normal. After WARREN, single synchronized shock was successful in restoring atrial fibrillation to normal sinus rhythm. IMPRESSION: Successful cardioversion on Arben Ocasio. During the procedure, the patient was monitored continuously with pulse oximetry, telemetry and blood pressure monitoring. TRANSINT:[id number] Voice Confirmation ID: [id number] DOCUMENT ID: [id number] at [id number] CC: [id number] DICTATION DATE: 01/06/20 1342 TRAINING FACILITATOR: 01/07/20 0317 DEP CLI 01/06/20 [place] [id number] [place] [id number]
== END 2020-01-06 15:05 | disposition home or self-care (01) ==
LOC: D.CATH 09:56
PROVIDERS: ATTEND Internal Medicine Interventional Cardiology
DX: I48.91 Unspecified atrial fibrillation (principal); I10 Essential (primary) hypertension; E78.5 Hyperlipidemia, unspecified; R06.00 Dyspnea, unspecified; R00.0 Tachycardia, unspecified

== ENCOUNTER 2020-09-24 09:38 | Day surgery (SDC) | payer MEDICARE, OTHER ==
[~2020-09-24] VITALS: Ht 167.6 cm; Wt 100.0 kg
--- NOTE | ~2020-09-24 | OP ---
PATIENT NAME: MADDISON ABDI SR MEDICAL RECORD: [id number] :39 LOCATION:D.OPS ADMISSION DATE: SURGEON: ANDERSON GUERRERO MD DATE OF OPERATION: 09/24/2020 PROCEDURE: Upper endoscopy. PREOPERATIVE DIAGNOSIS: Abdominal pain. MEDICATION: Propofol per anesthesia. The patient was made comfortable in the left lateral position. The endoscope was advanced through the mouth and advanced to the second part of the duodenum. The entire examined esophagus was normal. There was evidence of previous gastric surgery. Per the patient's history, he was unaware of what procedure he had done other than it was a restrictive procedure. There was mild erythema in the gastric body consistent with gastritis. Random gastric biopsies were taken. The duodenum was normal. Small bowel biopsies were taken. The patient tolerated the procedure well. FINAL DIAGNOSES: 1. Normal esophagus, evidence of previous gastric surgery consistent with the patient's history of restrictive weight loss surgery approximately 10 years ago. 2. Gastritis. Biopsies taken. 3. Duodenum normal. Biopsies taken. PLAN: Check histology results. Advance diet. Return to GI office. Will prescribe proton pump inhibitor and Bentyl to evaluate this patient's symptoms. TRANSINT:[id number] Voice Confirmation ID: [id number] DOCUMENT ID: [id number] ANDERSON GUERRERO MD CC: [id number] DICTATION DATE: 09/24/20 113 MEDICAL RECORDS CLERK: 09/24/202150 [facility] 09/24/[address] [facility] [address] [place] [address]
[~2020-09-24 09:38] MED LIST changes: +AMIODARONE HCL200 MG PO; +DIGOXIN250 MCG PO; +DILTIAZEM 24HR120 M3 PO; +ELIQUIS5 MG PO; +OMEPRAZOLE20 M1 PO
[2020-09-24 10:03] LABS: BASOPHILS 0.4 % (0-2); EOSINOPHILS 2.2 % (0-7); HEMATOCRIT 38.4 % (42.0-54.0); HEMOGLOBIN 12.1 g/dL (13.5-17.5); IMMATURE GRANULOCYTES 0.2 % (0-5); LYMPHOCYTE ABS# 0.99 10x3/uL (1.32-3.57); MCH 26.4 pg (26.0-34.0); MCHC 31.5 g/dL (31.0-37.0); MCV 83.8 fL (80.0-100.0); MEAN PLATELET VOLUME 8.8 fL (7.4-10.4); MONOCYTES 10.3 % (2-11); NEUTROPHILS 68.9 % (40-80); PLATELET COUNT 239 10x3/uL (130-400); RBC 4.58 10x6/uL (4.20-6.10); RDW 16.6 % (11.5-14.5); WBC 5.5 10x3/uL (4.8-10.8)
[2020-09-24 10:12] LABS: INR 1.18 (0.85-1.17); PROTIME 13.9 SECONDS (11.6-15.0)
[2020-09-24 10:18] LABS: ALBUMIN 3.2 g/dL (3.4-5.0); ANION GAP 8.1 mmol/L (8-16); BILIRUBIN - TOTAL 0.4 mg/dL (0.2-1.3); CALCIUM 9.1 mg/dL (8.5-10.1); CREATININE - SERUM 1.4 mg/dL (0.6-1.3); POTASSIUM - SERUM 4.1 mmol/L (3.5-5.1); PROTEIN - SERUM 7.5 g/dL (6.4-8.2)
[2020-09-24 10:33] VITALS: BP 152/77; Ht 167.6 cm; Wt 100.0 kg
--- NOTE | 2020-09-24 12:17 | NUR ---
DC INSTRUCTIONS GIVEN TO PT. STATES UNDERSTANDING. DC'D IV CATH FULLY INTACT. WILL DC SHORTLY. WILL BE HERE TO PICK HIM UP AT 1230
--- NOTE | 2020-09-24 12:36 | NUR ---
PT TOOK ABX PO PER ORDER.
--- NOTE | 2020-09-24 12:36 | NUR ---
PT LEFT UNIT VIA WC AT 1230
== END 2020-09-24 12:30 | disposition home or self-care (01) ==
LOC: D.OPS 09:38
PROVIDERS: ATTEND Internal Medicine Gastroenterology
DX: R10.9 Unspecified abdominal pain (principal); K29.70 Gastritis, unspecified, without bleeding; R12 Heartburn; R10.816 Epigastric abdominal tenderness; Z98.84 Bariatric surgery status

== ENCOUNTER → 2021-01-21 15:44 | Outpatient (CLI) | payer MEDICARE, OTHER ==
[2020-09-24 10:33] VITALS: BMI 35.6
== END | disposition home or self-care (01) ==
LOC: D.CT 15:44
PROVIDERS: ATTEND Family Medicine
DX: R51.9 Headache, unspecified (principal)

== ENCOUNTER 2021-01-29 08:01 | Emergency (ER) | payer MEDICARE, OTHER ==
[~2021-01-29] VITALS: Ht 167.6 cm; Wt 100.0 kg
[2021-01-29 08:05] VITALS: Ht 167.6 cm; Wt 100.0 kg
[2021-01-29] MEDS ORDERED: ZANAFLEX4 MG PO (08:10)
[2021-01-29] MEDS ORDERED: ASPIRIN EC81 MG PO (08:12)
[2021-01-29] MEDS ORDERED: PREDNISONE50 MG PO (09:14)
[2021-01-29] MEDS ORDERED: VALTREX1000 MG PO (09:14)
[2021-01-29] MEDS ORDERED: LIDODERM 5 %1 PATCH TRANSDERM (09:15)
[2021-01-29 09:21] VITALS: BP 160/79
== END 2021-01-29 09:30 | disposition home or self-care (01) ==
LOC: D.ER 08:01
DX: B02.9 Zoster without complications (principal); M54.2 Cervicalgia; Z79.01 Long term (current) use of anticoagulants; Z79.82 Long term (current) use of aspirin; E11.40 Type 2 diabetes mellitus with diabetic neuropathy, unspecified; I10 Essential (primary) hypertension; Z95.0 Presence of cardiac pacemaker; K21.9 Gastro-esophageal reflux disease without esophagitis